=== PATIENT | female | born 1980 | race Two or more races ===

== ENCOUNTER 2021-05-07 14:20 | Outpatient (REF) | payer BC, SELFPAY ==
--- NOTE | ~2021-05-07 | XR_ITS ---
EXAMINATION: XR LUMBOSACRAL SPINE WITH OBLIQUES CLINICAL INFORMATION: Low back pain COMPARISON: None TECHNIQUE: 5 views of lumbar spine FINDINGS: The vertebral bodies and posterior elements are normal. The disc spaces are preserved and the vertebral alignment is normal. The paraspinal soft tissues are normal. XR/XR lumbar spine 4V min IMPRESSION: Unremarkable examination.
== END 2021-05-07 14:21 | disposition home or self-care (01) ==
LOC: HO.HMGCX 14:20
PROVIDERS: PCP Internal Medicine; Visit Provider Internal Medicine
DX: M54.5 Low back pain (principal)
CPT/HCPCS: 72110

== ENCOUNTER 2021-05-14 07:32 | Outpatient (REF) | payer BC, SELFPAY ==
[2021-05-14 11:40] LABS: Eosinophils Absolute Auto 0.2 X10*3/uL (0.0-0.4); Eosinophils Percent Auto 2.7 % (0-4); Imm Gran Abs Auto 0.03 X10*3/uL (0.00-0.03); Imm Gran Pct Auto 0.5 % (0.0-0.4); MANUAL DIFF FLAG SCAN; SCAN SMEAR FLAG 1
[2021-05-14 11:42] LABS: Basophils Percent Auto 0.7 % (0-2); Hematocrit 42.6 % (37-47); Hemoglobin 14.2 g/dl (12.0-16.0); Lymphocytes Absolute Auto 2.1 X10*3/uL (1.2-4.9); Lymphocytes Percent Auto 38.4 % (20-40); Mean Corpuscular HGB Conc 33.3 g/dl (31.0-35.0); Mean Corpuscular Volume 89.9 fL (80-98); Mean Platelet Volume 13.3 fL (9.4-12.3); Monocytes Absolute Auto 0.5 X10*3/uL (0.1-1.2); Monocytes Percent Auto 8.2 % (2-11); Neutrophils Absolute Auto 2.7 X10*3/uL (2.0-8.3); Neutrophils Percent Auto 49.5 % (45-73); Platelet Count 208 X10*3/uL (160-400); Red Blood Count 4.74 X10*6/uL (4.20-5.50); Red Cell Distribution Width 12.1 % (11.0-16.0); White Blood Count 5.5 X10*3/uL (4.8-10.8)
[2021-05-14 11:50] LABS: PLT ABN DIST 1
[2021-05-14 12:08] LABS: SLIDE REVIEW VERIFIED
[2021-05-14 12:10] LABS: Alanine Aminotransferase 19 U/L (0-31); Anion Gap 12 (12-20); Aspartate Amino Transferase 17 U/L (5-31); Blood Urea Nitrogen 16 mg/dL (9-16); Calcium 8.9 mg/dL (8.4-10.2); Carbon Dioxide 24 mmol/L (22-29); Chloride 107 mmol/L (96-108); Cholesterol 161 mg/dL; Estimated Glomerular Filt Rate > 60; Glucose Fasting 86 mg/dL (60-99); HDL Cholesterol 44 mg/dL; LDL Cholesterol Calculated 88 mg/dl; Potassium 4.4 mmol/L (3.3-5.1); Sodium 139 mmol/L (135-145); Triglycerides 145 mg/dL
[2021-05-14 12:32] LABS: TSH reflex Free T4 1.37 uIU/mL (0.32-4.0); Vitamin D 25-OH Total 27.7 ng/mL (>30)
== END 2021-05-14 07:33 | disposition home or self-care (01) ==
LOC: HO.HMGCLDS 07:32
PROVIDERS: PCP Internal Medicine; Visit Provider Internal Medicine
DX: Z00.01 Encounter for general adult medical examination with abnormal findings (principal); M25.541 Pain in joints of right hand; M25.542 Pain in joints of left hand; I10 Essential (primary) hypertension; Z83.3 Family history of diabetes mellitus; Z83.49 Family history of other endocrine, nutritional and metabolic diseases
CPT/HCPCS: 36415; 80048; 80061; 82306; 84443; 84450; 84460; 85025

== ENCOUNTER 2021-10-04 13:49 | Outpatient (REF) | payer BC, SELFPAY ==
--- NOTE | ~2021-10-04 | XR_ITS ---
EXAMINATION: XR SINUSES CLINICAL INFORMATION: Headache. COMPARISON: CT head 04/27/2013 TECHNIQUE: 4 views of the paranasal sinuses were obtained. FINDINGS: Paranasal sinuses appear clear without air-fluid levels. No fractures are identified. No radiodense foreign bodies. XR/XR sinus min 3V IMPRESSION: Unremarkable examination.
== END 2021-10-04 13:50 | disposition home or self-care (01) ==
LOC: HO.HMGCX 13:49
PROVIDERS: PCP Internal Medicine; Visit Provider Internal Medicine
DX: R51.9 Headache, unspecified (principal)
CPT/HCPCS: 70220

== ENCOUNTER → 2022-01-07 13:24 | Outpatient (BNVA) | payer BC, SELFPAY | PROVIDERS: Visit Provider Advanced Practice Midwife | DX: Z13.89 Encounter for screening for other disorder (principal) ==

== ENCOUNTER → 2022-03-14 10:20 | Outpatient (BNVA) | payer BC, SELFPAY | PROVIDERS: PCP Internal Medicine; Visit Provider Advanced Practice Midwife | DX: Z30.46 Encounter for surveillance of implantable subdermal contraceptive (principal) | CPT/HCPCS: 11983; J7307 ==

== ENCOUNTER 2022-06-12 08:18 | Outpatient (REF) | payer BC, SELFPAY ==
--- NOTE | ~2022-06-12 | FL_ITS ---
EXAMINATION: XR FLUOROSCOPY UPPER GI WITH AIR CLINICAL INFORMATION: Epigastric pain: COMPARISON: None TECHNIQUE: Routine upper GI contrast study was performed. FINDINGS: Following oral administration of thick barium and effervescent granules in upright view there is normal. Bolus from the oral cavity through the pharynx, esophagus into stomach without any evidence of obstruction stricture or narrowing. On placing patient supine and prone lying the course, caliber and peristalsis of the stomach, duodenal bulb and the sweep is normal. The mucosal pattern of the stomach and the duodenum is normal. There is a moderate gastroesophageal reflux without hiatal hernia. FLUOROSCOPY TIME: 2.6 minutes DOSE AREA PRODUCT: 24.013 uGy-m2 (microgray-meter squared) FL/FL upper GI w air IMPRESSION: Mild gastroesophageal reflux without hiatal hernia. Rest of the upper GI exam is unremarkable.
== END 2022-06-12 08:19 | disposition home or self-care (01) ==
LOC: HO.XRAY 08:18
PROVIDERS: Visit Provider Internal Medicine
DX: R10.13 Epigastric pain (principal)
CPT/HCPCS: 74246

== ENCOUNTER 2022-07-30 08:19 | Outpatient (REF) | payer BC, SELFPAY ==
--- NOTE | ~2022-07-30 | US_ITS ---
EXAMINATION: US ABDOMEN COMPLETE CLINICAL INFORMATION: Unspecified abdominal pain. COMPARISON: None TECHNIQUE: Real-time imaging of the abdominal viscera. FINDINGS: PANCREAS: Normal. ABDOMINAL AORTA: The proximal, mid, and distal segments are normal in caliber. INFERIOR VENA CAVA: Visualized portions are normal. LIVER: Normal. The liver is normal in size. The liver contour is normal. Parenchymal echogenicity is normal. No focal hepatic lesion. There is no intrahepatic biliary duct dilatation seen. GALLBLADDER: 2 mm gallbladder wall polyp. No gallstones. No gallbladder wall thickening or pericholecystic fluid. No reported sonographic Lawler's sign. COMMON BILE DUCT: Normal in caliber measuring 0.3 cm in diameter. RIGHT KIDNEY: Normal. No hydronephrosis. No renal calculi or focal parenchymal lesions. The kidney measures 10.0 cm in maximum dimension. LEFT KIDNEY: Normal. No hydronephrosis. No renal calculi or focal parenchymal lesions. The kidney measures 10.9 cm in maximum dimension. SPLEEN: Normal. The spleen measures 11.4 cm in maximum dimension. FREE FLUID: None. US/US abdomen complete IMPRESSION: No acute findings to explain abdominal pain. 2 mm gallbladder wall polyp. There are differing management algorithms advocated for in the radiology literature for small gallbladder wall polyps of this size. Some suggest annual ultrasound follow-up while others suggest no follow-up is needed.
== END 2022-07-30 08:20 | disposition home or self-care (01) ==
LOC: HO.HMGCX 08:19
PROVIDERS: PCP Internal Medicine; Visit Provider Internal Medicine
DX: R10.9 Unspecified abdominal pain (principal); R14.0 Abdominal distension (gaseous)
CPT/HCPCS: 76700

== ENCOUNTER 2022-07-30 11:09 | Outpatient (REF) | payer BC, SELFPAY ==
[2022-07-30 15:21] LABS: CT PCR NOT DETECTED (Not Detect.)
[2022-07-30 15:22] LABS: NG PCR NOT DETECTED (Not Detect.)
[2022-07-31 09:35] LABS: BV Int Neg Control Negative (Negative); BV Int Pos Control Positive (Positive)
[2022-08-05 20:52] LABS: HPV mRNA E6/E7 rflx Not Detected (Not Detected)
== END 2022-07-30 11:10 | disposition home or self-care (01) ==
LOC: HO.LNP 11:09
PROVIDERS: Visit Provider Advanced Practice Midwife
DX: Z01.419 Encounter for gynecological examination (general) (routine) without abnormal findings (principal); R10.9 Unspecified abdominal pain; R14.0 Abdominal distension (gaseous); Z12.39 Encounter for other screening for malignant neoplasm of breast; Z11.3 Encounter for screening for infections with a predominantly sexual mode of transmission; Z97.5 Presence of (intrauterine) contraceptive device
CPT/HCPCS: 87480; 87491; 87510; 87591; 87624; 87660; 88142

== ENCOUNTER 2022-08-29 07:44 | Outpatient (REF) | payer BC, SELFPAY ==
--- NOTE | ~2022-08-29 | MM_ITS ---
EXAMINATION: MM SCREENING DIGITAL BREAST TOMOSYNTHESIS, BILATERAL CLINICAL INFORMATION: Screening. Asymptomatic. Age 42. No prior breast imaging. The lifetime risk of breast cancer based on the Tyrer-Cuzick Model is 14%. COMPARISON: None (current study represents initial baseline exam). TECHNIQUE: Digital breast tomosynthesis is performed in both the craniocaudal and mediolateral oblique views along with computer-aided detection (CAD). Synthesized 2D images are generated from the tomosynthesis. FINDINGS: The breasts are heterogeneously dense, which may obscure small masses (ACR BI-RADS breast composition Category c). There are no significant masses, abnormal calcifications, or other abnormalities. No architectural abnormality. The axilla are unremarkable. Incidental low left axillary tail node. The skin contours are smooth. MM/MM tomosynthesis screening BI IMPRESSION: No mammographic evidence of malignancy. ASSESSMENT: BI-RADS 1: Negative RECOMMENDATION: Routine annual mammography screening. This patient's information was entered into a reminder system with a target due date for their next mammogram.
[2022-08-29 12:15] LABS: Syphilis Screen Nonreactive (Nonreactive)
[2022-08-29 12:54] LABS: Alanine Aminotransferase 14 U/L (0-31); Anion Gap 11 (12-20); Aspartate Amino Transferase 13 U/L (5-31); Blood Urea Nitrogen 18 mg/dL (9-16); Calcium 9.1 mg/dL (8.4-10.2); Carbon Dioxide 25 mmol/L (22-29); Chloride 107 mmol/L (96-108); Cholesterol 165 mg/dL; Estimated Glomerular Filt Rate > 60; Glucose Fasting 111 mg/dL (60-99); HDL Cholesterol 43 mg/dL; LDL Cholesterol Calculated 106 mg/dl; Potassium 4.3 mmol/L (3.3-5.1); Triglycerides 81 mg/dL; Vitamin D 25-OH Total 22.7 ng/mL (>30)
[2022-08-29 12:57] LABS: HBsAGNum1 0.27 S/CO (0.00-0.99); HIV AB/AG Nonreactive (Nonreactive); HIV Num 1 0.07 S/CO (0.00-0.99); Hepatitis B Surface Antigen Negative (Negative); Sodium 139 mmol/L (135-145); ~HepC Num1 0.14 S/CO (0.00-0.79); ~Hepatitis C Antibody Nonreactive (Nonreactive)
== END 2022-08-29 07:45 | disposition home or self-care (01) ==
LOC: HO.MAMMO 07:44
PROVIDERS: PCP Internal Medicine; Visit Provider Advanced Practice Midwife
DX: Z00.01 Encounter for general adult medical examination with abnormal findings (principal); Z11.4 Encounter for screening for human immunodeficiency virus [HIV]; Z12.31 Encounter for screening mammogram for malignant neoplasm of breast; Z11.3 Encounter for screening for infections with a predominantly sexual mode of transmission; K21.9 Gastro-esophageal reflux disease without esophagitis; M54.50 Low back pain, unspecified; R14.0 Abdominal distension (gaseous); Z97.5 Presence of (intrauterine) contraceptive device
CPT/HCPCS: 36415; 77063; 77067; 80048; 80061; 82306; 84450; 84460; 86780; 86803; 87340; 87389

== ENCOUNTER 2022-09-23 11:19 | Outpatient (REF) | payer BC, SELFPAY ==
[2022-09-24 11:20] LABS: H Pylori Breath Test Negative (Negative)
== END 2022-09-23 11:20 | disposition home or self-care (01) ==
LOC: CF 11:19
PROVIDERS: PCP Internal Medicine; Visit Provider Nurse Practitioner Family
DX: Z11.2 Encounter for screening for other bacterial diseases (principal)
CPT/HCPCS: 36415; 83013

== ENCOUNTER 2022-10-06 13:24 | Outpatient (REF) | payer BC, SELFPAY ==
[2022-10-06 15:24] LABS: Lipase 33 U/L (8-78)
[2022-10-06 15:58] LABS: Folate 10.1 ng/mL (> or = 4.0); TSH reflex Free T4 1.48 uIU/mL (0.32-4.0); Vitamin B12 261 pg/mL (200-900)
[2022-10-08 19:38] LABS: Transglutaminase Ab IgG <1.0 U/mL; Transglutaminase IgA <1.0 U/mL
== END 2022-10-06 13:25 | disposition home or self-care (01) ==
LOC: HO.LAB 13:24
PROVIDERS: PCP Internal Medicine; Referring Provider Internal Medicine; Visit Provider Nurse Practitioner Family
DX: R10.9 Unspecified abdominal pain (principal); R19.7 Diarrhea, unspecified; K21.9 Gastro-esophageal reflux disease without esophagitis; R14.0 Abdominal distension (gaseous); K59.01 Slow transit constipation
CPT/HCPCS: 36415; 82607; 82746; 83690; 84443; 86364

== ENCOUNTER 2022-10-15 11:18 | Outpatient (REF) | payer BC, SELFPAY ==
[2022-10-25 17:28] LABS: Pancreatic Elastase-1 >500 mcg/g
== END 2022-10-15 11:19 | disposition home or self-care (01) ==
LOC: HO.LNP 11:18
PROVIDERS: Visit Provider Nurse Practitioner Family
DX: R10.9 Unspecified abdominal pain (principal)
CPT/HCPCS: 82656

== ENCOUNTER 2022-11-06 11:48 | Day surgery (SDC) | payer BC, SELFPAY ==
[2022-11-06 12:09] VITALS: BMI 25.7
[2022-11-06 12:24] VITALS: BP 114/68; PULSE 66; RESP 15; TEMP 36.7; O2SAT 99
[2022-11-06 12:28] LABS: UPreg QC Valid YES; Urine Pregnancy NEGATIVE (NEGATIVE)
--- NOTE | 2022-11-06 12:30 | P.CONAN_ITS ---
HPI - Anesthesia Eval Consult details Narrative: Egd [facility] Active Problems Active Problems: All Active Problems (Updated 09/26/22 @ 17:24 by Mary Kate Delgado [facility]) Cervical cancer screening (Acute) Lumbago syndrome (Acute) GERD (gastroesophageal reflux disease) (Acute) Postprandial abdominal bloating (Acute) Nexplanon in place (Acute) Family history of thyroid disease (Acute) Family history of diabetes mellitus in first degree relative (Acute) Past Medical History Medical History Bilateral finger arthralgia Family history of diabetes mellitus in first degree relative Family history of thyroid disease GERD (gastroesophageal reflux disease) Lumbago syndrome Postprandial abdominal bloating Family History Family History Father Hepatitis C Mother Asthma HTN (hypertension) Rosacea Maternal Grandmother Breast cancer Maternal Grandfather History of heart attack Paternal Grandmother No problems noted. Paternal Grandfather No problems noted. Brother No problems noted. Brother No problems noted. Sister No problems noted. Daughter No problems noted. 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 Current occupational exposures/hazards: No Cognitive needs: No Hearing needs: No Vision needs: Yes Meds Allergies Allergy/AdvReac Type Severity Reaction Status Date / Time Seasonal Allergies Allergy Mild Runny Nose Verified 11/06/22 12:09 Active Medications: Current Medications Lactated Ringer's (Lr) 1,000 mls @ 50 mls/hr IVCONT .Q20H ALISON Home Medications Medication Instructions Recorded Confirmed Last Taken Type etonogestrel 68 mg subdermal subdermal 05/07/21 08/08/22 Unknown History implant (Nexplanon) fexofenadine 180 mg tablet 180 mg PO DAILY 05/14/22 10/31/22 Unknown History (Beatriz Allergy) Exam Exam Date and Time: November 06, 2022 1230 Height,Weight and Vital Signs: Height 5 ft 6 in Weight 72.121 kg Last Vital Signs Temp 98.1 F 11/06/22 12:24 Pulse 66 11/06/22 12:24 Resp 15 11/06/22 12:24 BP 114/68 11/06/22 12:24 Pulse Ox 99 11/06/22 12:24 O2 Del Method 11/06/22 12:24 Pertinent Lab Results Pertinent Lab Results: Laboratory Tests 11/06/22 12:10 Urine Test NEGATIVE Airway Mallampati Class: II TM Dist: >3cm Neck ROM: Full Loose/Missing/Broken Teeth: No Heart: rrr Lungs: cta Assessment and Plan Assessment Anesthesia Assessment: Anesthesia Plan Discussed and Chart Reviewed Final Anesthetic Review Family History of Problems with Anesthesia: No History of Problems with Anesthesia: No NPO: Yes ASA Class: II Final Preanesthetic Review: No Changes in Pt Med Stat, Meds/Allgs Chart Reviewed, Consent Obtained/Reviewed and Anes Risks/Benef Reviewed Patient Risk: Low Procedure Risk: Low Anesthetic Plan Anesthetic Plan: MAC: Disposition: Standard PACU
[2022-11-06] MEDS: Lactated Ringers 1,000 ML 50 ML IVCONT (12:38)
--- NOTE | 2022-11-06 13:25 | MHC.SHP ---
Pre-Procedural Eval Section A Date of Service: 11/06/22 Section B Chief Complaint: reflux disease Relevant Family History (Specify if Yes): No Relevant Social History: Alcohol Use Present Medications: see Short Stay Collaborative assessment Medical History: Significant History (Bilateral finger arthralgia Family history of diabetes mellitus in first degree relative Family history of thyroid disease GERD (gastroesophageal reflux disease) Lumbago syndrome Postprandial abdominal bloating) History of Previous Operations: Relevant previous surgery/procedure and date(s) (c section) Allergies: Allergies Allergy/AdvReac Type Severity Reaction Status Date / Time Seasonal Allergies Allergy Mild Runny Nose Verified 11/06/22 12:09 Review of Systems Sugical H&P ROS: Negative: Constitution, Cardiovascular, Respiratory, Neurological, Psychiatric, Hem-Onc, Allergic/Immunologic, Gastrointestinal, Genitourinary, Musculoskeletal, Integumentary, Endocrine and Eyes/Ears/Nose/Throat Exam Surgical H&P Exam: Normal: HEENT, Normal: Heart, Normal: Lungs, Normal: Extremities, Normal: Abdomen, Normal: Skin and Normal: Neurological Plan Diagnosis/Plan: Unchanged I have reviewed the history and physical and performed a pertinent physical examination on my patient. No changes have occurred unless specified. Time Spent With Patient Time: Total time managing care of this patient today ____ minutes.
--- NOTE | 2022-11-06 13:54 | W.PM.OPN ---
Operative Note Operative Note Date of Service: 11/06/22 Narrative: Procedure Description: EGD Indication: GERD Anesthesia: MAC FLEXIBLE TRANSORAL UPPER GASTROINTESTINAL ENDOSCOPY UPPER ENDOSCOPY Consent: Indications for the procedure and potential complications of bleeding, perforation, reaction to medications and missed diagnosis were discussed with the patient and informed consent was obtained. Instrument: Olympus GIF H 190 J mid size upper endoscope Monitoring: Vital signs and clinical assessment, continuous EKG monitoring, Pulse oximetry, Carbon Dioxide monitoring and blood pressure monitoring were done throughout the procedure. Procedure: The patient was placed in the left lateral decubitis position and pre-procedure medications were administered and a bite block was placed. The endoscope was inserted into the mouth and advanced under direct vision to the third part of duodenum. A careful inspection was made as the upper endoscope was withdrawn including a retroflexed examination of the proximal stomach; Findings and interventions are described below. Findings: Larynx:normal Esophagus: GE junction at 38 cm, diaphragm hiatus at 38 cm, no varices or esophagitis. Non obstructive schatzki ring noted, bx taken from GEJ, proximal and distal esophagus. Stomach: Patchy gastric erythema. Biopsies were obtained. Grade 2 flap valve on retroflexed examination of the cardia. There seemed to be reduced gastric motility. Duodenum: Normal bulb and descending duodenum, bx taken Intervention: Biopsies as noted above Impression/Findings: possible gastroparesis schatzki ring PLAN: change PPI, can use esomeprazole 20 mg if covered reflux precatuions, lifestyle advice
[2022-11-06 14:00] VITALS: BP 108/64; PULSE 78; RESP 17; TEMP 36.8; O2SAT 100
[2022-11-06 14:15] VITALS: BP 116/71; PULSE 62; RESP 17; TEMP 36.8; O2SAT 100
== END 2022-11-06 14:47 | disposition home or self-care (01) ==
PROVIDERS: Anesthesiology; PCP Internal Medicine; Visit Provider Internal Medicine Gastroenterology
PROC: 0DJ08ZZ Inspection of Upper Intestinal Tract, Via Natural or Artificial Opening Endoscopic (ICD-10-PCS; CPT 43235; principal; 2022-11-06 14:00)
DX: K21.9 Gastro-esophageal reflux disease without esophagitis (principal); K22.2 Esophageal obstruction; K44.9 Diaphragmatic hernia without obstruction or gangrene; K59.01 Slow transit constipation; R14.0 Abdominal distension (gaseous); F10.90 Alcohol use, unspecified, uncomplicated; Z79.899 Other long term (current) drug therapy
CPT/HCPCS: 43239; 81025; 88305; 88342

== ENCOUNTER → 2022-11-21 14:00 | Outpatient (BNVA) | payer BC, SELFPAY | PROVIDERS: PCP Internal Medicine; Visit Provider Nurse Practitioner Family | DX: Z13.89 Encounter for screening for other disorder (principal) ==

== ENCOUNTER → 2023-02-13 13:26 | Outpatient (BNVA) | payer BC, SELFPAY | PROVIDERS: PCP Internal Medicine; Visit Provider Nurse Practitioner Family ==

== ENCOUNTER 2023-07-02 10:25 | Outpatient (AMB) | payer BC, SELFPAY ==
[2023-07-02 10:34] VITALS: BP 110/70; PULSE 71; TEMP 37.1; O2SAT 92; BMI 26.5
--- NOTE | 2023-07-02 10:34 | MHC.PC.OV ---
Vital Signs 07/02/23 10:34 Height 5 ft 6 in Weight 164 lb BMI 26.5 BP 110/70 Blood Pressure Location Rt brachial Position Sitting Pulse 71 Pulse Source Pulse Oximeter Temp 98.7 F Temp Source Oral Pulse Oximetry (%) 92 Oxygen Delivery Method Room Air Intake Visit Reasons: Sinus congestion, headaches Intake Note: patient is here today for sinus congestion, headaches x2days Allergies Seasonal Allergies Allergy (Mild, Verified 07/02/23 11:03) Runny Nose Medication List - Last Reconciled 07/02/23 by Emmie Dillon MD esomeprazole magnesium 20 mg PO DAILY etonogestrel (Nexplanon) subdermal famotidine (Pepcid) 20 mg PO BEDTIME fexofenadine (Beatriz Allergy) 180 mg PO DAILY polyethylene glycol 3350 (Miralax) 17 grams PO DAILY sennosides (Natural Senna Laxative) 8.6 mg PO BEDTIME simethicone (Gas Relief (simethicone)) 125 mg PO TID-QID PRN simethicone (Gas Relief (simethicone)) 80 mg PO TID-QID PRN Tobacco use date assessed: 07/02/23 Dental Screening Dental Screen Date: 07/02/23 Did you have a dental visit in the last 12 months?: Yes Did you have a dental problem in the last 6 months where you did not have access to dental care?: No Was dental information given to patient?: Patient has dentist HPI HPI Comments History of Present Illness Details 43-year-old lady here today presenting with 2 day history of nasal congestion accompanied by frontal headaches, with no epistaxis, no fever, no cough or shortness of breath accompanying above symptoms. Has had similar symptoms in December 2022, seen by her ENT, diagnosed with acute sinusitis and placed on Z-Lucio and methylprednisolone Dosepak, which has helped. She is also currently getting allergy shots from Dr. Mobley for her environmental and seasonal allergies, for the last 2 years now, does not notice any improvement . [facility] Medical History (Updated 07/02/23 @ 11:16 by Emmie Dillon MD) Environmental and seasonal allergies GERD (gastroesophageal reflux disease) Postprandial abdominal bloating Bilateral finger arthralgia Family history of thyroid disease Family history of diabetes mellitus in first degree relative Lumbago syndrome Surgical History History of esophagogastroduodenoscopy (EGD) History of dermoid cyst excision History of section Family History Father Hepatitis C Mother Asthma HTN (hypertension) Rosacea Maternal Grandmother Breast cancer Maternal Grandfather History of heart attack Paternal Grandmother No problems noted. Paternal Grandfather No problems noted. Brother No problems noted. Brother No problems noted. Sister No problems noted. Daughter No problems noted. 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 1. Little interest or pleasure in doing things: several days 2. Feeling down, depressed, or hopeless: not at all 3. Trouble falling or staying asleep, or sleeping too much: several days 4. Feeling tired or having little energy: not at all 5. Poor appetite or overeating: not at all 6. Feeling bad about yourself - or that you are a failure or have let yourself or your family down: not at all 7. Trouble concentrating on things, such as reading the newspaper or watching television: not at all 8. Moving or speaking so slowly that other people could have noticed. Or the opposite - being so fidgety or restless that you have been moving around a lot more than usual: not at all 9. Thoughts that you would be better off or of hurting yourself in some way: not at all Total score: 2 Depression Screening Interpretation: Negative Depression Screening Done: Yes [id number] - PHQ-9 Billing: Yes Source: Developed by Drs. Lopez Amaral, Shea Bull, Abelino Oneal and colleagues, with an educational tyrone from [employer]. Thrive Questionnaire Date Thrive assessed: 07/02/23 I am a: Patient What is your living situation today?: I have a steady place to live Within the past 12 months, did the food you bought not last and you didn't have the money to get more?: Never true Within the past 12 months, did you worry whether your food would run out before you got money to buy more?: Never true Do you have trouble paying for medicines?: No Do you have trouble getting transportation to medical appointments?: No Do you have trouble paying your heating and electricity bill?: No Do you have trouble taking care of your child, family member or friend?: No Do you have trouble with day-to-day activities such as bathing, preparing meals, shopping, managing finances, etc.?: No Are you currently unemployed and looking for a job?: No Are you interested in more education?: No AUDIT C Alcohol Use Questionnaire (AUDIT-C) 1. How often do you have a drink containing alcohol?: Monthly or less 2. How many drinks containing alcohol do you have on a typical day when you are drinking?: 1 or 2 Total Score: 1 IFTIKHAR-7 AMB Questionnaire IFTIKHAR-7 Date IFTIKHAR - 7 assessed: 07/02/23 Feeling nervous, anxious, or on edge: 1 = Several days Not being able to stop or control worryin = Not at all Worrying too much about different things: 1 = Several days Trouble relaxin = Several days Being so restless that it is hard to sit still: 0 = Not at all Becoming easily annoyed or irritable: 1 = Several days Feeling afraid as if something awful might happen: 1 = Several days Total IFTIKHAR-7 score (0-4 normal; 5-9 mild; 10-14 moderate; 15-21 severe): 5 Source: Developed by Drs. Lopez Amaral, Shea Bull, Abelino Oneal and colleagues, with an educational tyrone from [employer]. IFTIKHAR-7 Assessment Billing IFTIKHAR-7 Assessment Tool: IFTIKHAR-7 Assessment 77142 Review of Systems Const Denies body aches and Denies fever(s) Eyes Denies change in vision ENT Denies sore throat Card Denies chest pain, Denies lightheadedness and Denies dyspnea Resp Denies chest congestion, Denies cough and Denies dyspnea Physical exam (Primary Care) Vital Signs: Last Vital Signs Temp 98.7 F 07/02/23 10:34 Pulse 71 07/02/23 10:34 BP 110/70 07/02/23 10:34 Pulse Ox 92 07/02/23 10:34 Oxygen Delivery Method Room Air 07/02/23 10:34 BMI result Body Mass Index 26.5 Tobacco/Smoking Status: Tobacco use Status Tobacco use date assessed 07/02/23 07/02/23 10:36 Patient Tobacco Use Status Former Tobacco user 07/02/23 10:36 e-Cigarette/Vaping Use Never Used 07/02/23 10:36 PHQ-9: PHQ-9 Score PHQ-9: Total score 2 07/02/23 10:59 Depression Screening Interpretation: Negative Thrive Assessment: Date of Thrive Assessment Date Thrive assessed 07/02/23 07/02/23 10:45 Const General: comfortable and no acute distress Orientation/consciousness: patient oriented x3 HENMT Head: Yes normocephalic Ears: external ears normal, TM's normal bilaterally and EAC's normal General nose exam: Normal external nose present, No nasal discharge present and Abnormal mucous membranes and turbinates present erythematous bilateral Face and sinus: Yes sinus tenderness (Maxillary area left more than the right) Eyes General: appearance normal, both eyes and all related structures Neck Neck: Yes full ROM, Yes no lymphadenopathy and Yes supple Resp Auscultation: clear to auscultation bilaterally Cardio Other: S1-S2 present regular rate and rhythm Neuro General: patient oriented x3 Assessment and Plan Assessment & Plan (1) Acute sinusitis: Code(s): J01.90 - Acute sinusitis, unspecified Qualifiers: Sinusitis location: maxillary Recurrence: non-recurrent Qualified Code(s): J01.00 - Acute maxillary sinusitis, unspecified Plan: Prescription sent for azithromycin Dosepak, to take as directed. If no improvement of symptoms, advised to follow-up with her ENT, Dr. Gauthier for further evaluation. Medications: New azithromycin For 250 mg dose pack: take 500 mg today (day 1), then 250 mg for 4 days (days 2-5) PO 6 tabs 0RF Coding Level of Care Code Est Pt Level 3 (91831) Diagnoses Acute non-recurrent maxillary sinusitis J01.00 Sinusitis location: maxillary Recurrence: non-recurrent Additional Codes IFTIKHAR-7 Assessment Billing - IFTIKHAR-7 Assessment Tool: IFTIKHAR-7 Assessment 97019 ([id number])
== END 2023-07-02 13:41 | disposition home or self-care (01) ==
PROVIDERS: PCP Internal Medicine; Visit Provider Internal Medicine
DX: J01.00 Acute maxillary sinusitis, unspecified (principal)
CPT/HCPCS: 99213

== ENCOUNTER 2023-08-07 08:01 | Outpatient (AMB) | payer BC, SELFPAY ==
--- NOTE | 2023-08-07 08:03 | MHC.OFFWIV ---
Intake Vital Signs 08/07/23 08:11 Height 5 ft 6 in Weight 164 lb BMI 26.5 BP 130/72 Blood Pressure Location Rt brachial Position Sitting Pulse 81 Pulse Source Pulse Oximeter Temp 98.0 F Temp Source Temporal Artery Scan Pulse Oximetry (%) 97 Intake Visit Reasons: EST/ sore throat and and headache (lobby) Intake Note: pt is here for c/o sore throat and headache, fever Patient Tobacco Use Status: Former Tobacco user Quit Date: age 24 Allergies Seasonal Allergies Allergy (Mild, Verified 08/07/23 08:11) Runny Nose Do you need a note to return to daycare/school/sports/work: Yes HPI HPI Comments History of Present Illness Details The patient presents to urgent care for evaluation of sore throat and fever. 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 She complains of a headache as well. [facility] Medical History (Updated 07/02/23 @ 11:16 by Emmie Dillon MD) Environmental and seasonal allergies GERD (gastroesophageal reflux disease) Postprandial abdominal bloating Bilateral finger arthralgia Family history of thyroid disease Family history of diabetes mellitus in first degree relative Lumbago syndrome Surgical History History of esophagogastroduodenoscopy (EGD) History of dermoid cyst excision History of section Family History Father Hepatitis C Mother Asthma HTN (hypertension) Rosacea Maternal Grandmother Breast cancer Maternal Grandfather History of heart attack Paternal Grandmother No problems noted. Paternal Grandfather No problems noted. Brother No problems noted. Brother No problems noted. Sister No problems noted. Daughter No problems noted. 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 Current occupational exposures/hazards: No Cognitive needs: No Hearing needs: No Vision needs: Yes Female Reproductive History Menstrual Age of Menarche: 15 Review of Systems ENT Denies dizziness and Reports sore throat Card Denies rapid heart rate, Denies dyspnea and Denies dyspnea on exertion Resp Denies dyspnea and Denies dyspnea on exertion Musc Denies arthralgias and Denies muscle cramps Neuro Denies dizziness, Denies focal weakness and Denies Other visual disturbances Physical Exam Vital Signs: Last Vital Signs Temp 98.0 F 08/07/23 08:11 Pulse 81 08/07/23 08:11 BP 130/72 08/07/23 08:11 Pulse Ox 97 08/07/23 08:11 BMI result Body Mass Index 26.5 Const General: healthy appearing and no acute distress HEENT Mouth: Normal oral and palatal mucosa present Resp Effort & Inspection: normal respiratory effort and able to speak in complete sentences Auscultation: clear to auscultation bilaterally Cardio Rate: regular rate Rhythm: regular rhythm Results AMB Rapid Strep AMB Rapid Strep Negative Last Edit by Sherman Duron CMA on 08/07/23 08:20 Assessment & Plan Assessment & Plan (1) Sore throat: Code(s): J02.9 - Acute pharyngitis, unspecified Plan Fever and sore throat. Rapid strep test negative symptoms likely viral. The patient advised for symptomatic relief. Orders: Orders AMB Rapid Strep Screen Today Z13.9 - Encounter for screening, unspecified Coding Level of Care Code Est Pt Level 3 (50814) Diagnoses Sore throat J02.9
[2023-08-07 08:11] VITALS: BP 130/72; PULSE 81; TEMP 36.7; O2SAT 97; BMI 26.5
== END 2023-08-07 08:57 | disposition home or self-care (01) ==
PROVIDERS: PCP Internal Medicine; Visit Provider Emergency Medicine
DX: J02.9 Acute pharyngitis, unspecified (principal)
CPT/HCPCS: 87880; 99213

== ENCOUNTER 2023-08-10 08:01 | Outpatient (AMB) | payer BC, SELFPAY ==
[2023-08-10 08:03] VITALS: BP 118/72; PULSE 94; TEMP 37.1; O2SAT 99; BMI 26.5
--- NOTE | 2023-08-10 08:03 | MHC.OFFWIV ---
Intake Vital Signs 08/10/23 08:03 Height 5 ft 6 in Weight 164 lb BMI 26.5 BP 118/72 Blood Pressure Location Rt brachial Position Sitting Pulse 94 Pulse Source Pulse Oximeter Temp 98.8 F Temp Source Oral Pulse Oximetry (%) 99 Oxygen Delivery Method Room Air Intake Visit Reasons: EST/sinus infection(lobby masked) Intake Note: pt is here for c/o sinus infection possibly vision exam 20/10 both eyes, left eye 20/10, right eye 20/10..corrected Patient Tobacco Use Status: Former Tobacco user Quit Date: age 24 Allergies Seasonal Allergies Allergy (Mild, Verified 08/10/23 08:18) Runny Nose Medication List - Last Reconciled 08/10/23 by Saravanan Pastor MD esomeprazole magnesium 20 mg PO DAILY etonogestrel (Nexplanon) subdermal famotidine (Pepcid) 20 mg PO BEDTIME fexofenadine (Beatriz Allergy) 180 mg PO DAILY polyethylene glycol 3350 (Miralax) 17 grams PO DAILY sennosides (Natural Senna Laxative) 8.6 mg PO BEDTIME simethicone (Gas Relief (simethicone)) 125 mg PO TID-QID PRN Do you need a note to return to daycare/school/sports/work: Yes HPI EST/sinus infection(lobby masked) HPI Details Patient presents for a sick visit. Reporting symptoms of sinus congestion, sore throat and difficulty swallowing. Low-grade fever. No family member is sick. No recent travel. Patient reports symptoms of malaise and fatigue. Right eye started getting inflamed 2 days ago. Frequent tearing and mucoid discharge. [facility], [facility] Medical History (Updated 07/02/23 @ 11:16 by Emmie Dillon MD) Environmental and seasonal allergies GERD (gastroesophageal reflux disease) Postprandial abdominal bloating Bilateral finger arthralgia Family history of thyroid disease Family history of diabetes mellitus in first degree relative Lumbago syndrome Surgical History History of esophagogastroduodenoscopy (EGD) History of dermoid cyst excision History of section Family History Father Hepatitis C Mother Asthma HTN (hypertension) Rosacea Maternal Grandmother Breast cancer Maternal Grandfather History of heart attack Paternal Grandmother No problems noted. Paternal Grandfather No problems noted. Brother No problems noted. Brother No problems noted. Sister No problems noted. Daughter No problems noted. 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 Current occupational exposures/hazards: No Cognitive needs: No Hearing needs: No Vision needs: Yes Female Reproductive History Menstrual Age of Menarche: 15 Physical Exam Vital Signs: Last Vital Signs Temp 98.8 F 08/10/23 08:03 Pulse 94 08/10/23 08:03 BP 118/72 08/10/23 08:03 Pulse Ox 99 08/10/23 08:03 Oxygen Delivery Method Room Air 08/10/23 08:03 BMI result Body Mass Index 26.5 Const General: cooperative and healthy appearing Nutritional Appearance: well nourished Orientation/consciousness: patient oriented x3 Limitations: no limitations HEENT Head: Yes normal to inspection Eyes Other: Right eye: Bulbar conjunctiva is congested. Corneas clear. Anterior chamber is clear. Neck Neck: Yes normal visual inspection Chest Chest palpation & inspection: normal palpation of entire chest wall Resp Effort & Inspection: normal respiratory effort Neuro General: patient oriented x3 Assessment & Plan Assessment & Plan (1) Upper respiratory tract infection: Code(s): J06.9 - Acute upper respiratory infection, unspecified Plan: Antibiotics ordered. Increase fluid intake. Tylenol for aches and pains. If symptoms worsen, follow-up here for a recheck. Erythromycin ophthalmic ointment called in. Coding Level of Care Code Est Pt Level 3 (95348) Diagnoses Upper respiratory tract infection J06.9
== END 2023-08-10 09:04 | disposition home or self-care (01) ==
PROVIDERS: PCP Internal Medicine; Visit Provider Internal Medicine
DX: J06.9 Acute upper respiratory infection, unspecified (principal)
CPT/HCPCS: 99213

== ENCOUNTER 2023-08-14 14:11 | Outpatient (AMB) | payer BC, SELFPAY ==
[2023-08-14 14:15] VITALS: BP 114/72; PULSE 91; BMI 26.8
--- NOTE | 2023-08-14 14:15 | A.OFFVIS_ITS ---
Intake Vital Signs 08/14/23 14:15 Height 5 ft 6 in Weight 165 lb 12.602 oz BMI 26.8 BP 114/72 Blood Pressure Location Rt brachial Position Sitting Pulse 91 Pulse Source Pulse Oximeter Intake Visit Reasons: 6 mnth follow up Intake Note: Pt presents to the office today for a 6 month follow up. Pt states she is feeling well and states that she still doesnt have a bowel movement everyday but she believes the medication has helped her have more normal bowel movements. Pt denies any other GI concerns at this time. Allergies Seasonal Allergies Allergy (Mild, Verified 08/14/23 14:16) Runny Nose HPI 6 mnth follow up HPI Details LAST VISIT GERD (gastroesophageal reflux disease) Continue taking Nexium and famotidine. Discussed with patient avoiding dietary triggers and late night snacking. Staying upright for minimal 3 hours after meals discussed with patient. He Postprandial abdominal bloating Continue following low FODMAP diet. Avoid dietary triggers. Patient also does no t move her bowels every day only every 2-3 days. I will start her on Senokot. Patient was also encouraged to follow list given to her last visit Constipation Will start patient on Senokot. Patient was instructed to take it every day. Discussed with her the importance of moving her bowels daily. Patient was encouraged to increase fluid intake and activity to promote better bowel motility. I will see patient in 6 months, sooner on as needed basis. Patient is agreeable to this plan and verbalizes understanding of instructions. She was given the opportunity to ask questions and all questions answered. ? Thank you for allowing me to participate in her care Plan Medications New sennosides (Natural Senna Laxative) 8.6 mg PO BEDTIME 90 tabs 3RF constipation K59.00 - Constipation, unspecified TODAY'S VISIT: Patient is here today for follow-up. Patient reports that she has been moving her bowels better since she started taking senna. Patient is taking 1 Senokot every evening. Patient feels like she does not empty her bowels completely and does not go every day. Patient reports that her abdominal bloating has got much better now that she is moving her bowels. Patient reports that her symptoms of acid reflux have been better. She is not taking any famotidine at bedtime. Patient is taking as omeprazole in the morning, however when she forgets to take it she reports to have mild symptoms. Patient denies any dyspepsia, dysphagia or odynophagia. Denies any melena, hematochezia, unintentional weight loss or ribbon like stools. Patient denies any nausea or vomiting. Denies any abdominal pain or discomfort. Patient reports to have a good appetite. Trying to avoid dietary triggers and trying to avoid eating late at night time [facility] Medical History (Updated 07/02/23 @ 11:16 by Emmie Dillon MD) Environmental and seasonal allergies GERD (gastroesophageal reflux disease) Postprandial abdominal bloating Bilateral finger arthralgia Family history of thyroid disease Family history of diabetes mellitus in first degree relative Lumbago syndrome Surgical History History of esophagogastroduodenoscopy (EGD) History of dermoid cyst excision History of section Family History Father Hepatitis C Mother Asthma HTN (hypertension) Rosacea Maternal Grandmother Breast cancer Maternal Grandfather History of heart attack Paternal Grandmother No problems noted. Paternal Grandfather No problems noted. Brother No problems noted. Brother No problems noted. Sister No problems noted. Daughter No problems noted. 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 Current occupational exposures/hazards: No Cognitive needs: No Hearing needs: No Vision needs: Yes Female Reproductive History Menstrual Age of Menarche: 15 Review of Systems Const Denies weight gain and Denies weight loss ENT Reports no additional complaints, Denies dysphagia and Denies odynophagia Card Reports no additional complaints Resp Reports no additional complaints GI Denies abdominal pain, Denies belching, Denies melena, Denies bloating, Reports constipation (Occasional), Denies dysphagia, Denies excessive flatus, Denies dyspepsia, Denies heartburn, Denies diarrhea, Denies loose stools, Denies nausea, Denies odynophagia and Denies vomiting Reports no additional complaints Musc Reports no additional complaints Neuro Reports no additional complaints Psych Reports no additional complaints Endo Reports no additional complaints Physical Exam Vital Signs: BMI result Body Mass Index 26.8 Const General: healthy appearing, no acute distress and well developed Nutritional Appearance: well nourished Orientation/consciousness: patient oriented x3 HEENT Head: Yes normal to inspection, Yes normocephalic and Yes atraumatic Face and sinus: Yes normal facial exam Mouth: Normal oral and palatal mucosa present Throat: Yes posterior oropharynx normal, Yes tonsils normal and Yes uvula midline Eyes General: appearance normal, both eyes and all related structures Neck Neck: Yes normal visual inspection, Yes full ROM and Yes trachea midline Thyroid: Thyroid normal Resp Effort & Inspection: normal respiratory effort, able to speak in complete sentences, no tracheal deviation and symmetric chest movement Auscultation: clear to auscultation bilaterally Cardio Rate: regular rate Heart sounds: S1 normal heart sound present and S2 abnormal GI Inspection: Yes normal to inspection and No distended Palpation (GI): Soft to palpation, not firm, nontender and No hepatosplenomegaly present Auscultation: normal bowel sounds General: Yes no CVA tenderness Back/Spine/Pelvis Back: no CVA tenderness Skin General skin exam: elasticity normal, turgor normal and dry skin Neuro General: patient oriented x3 Psych Appearance: grossly normal Mental Status: mental status grossly normal Assessment & Plan Assessment & Plan (1) GERD (gastroesophageal reflux disease): Code(s): K21.9 - Gastro-esophageal reflux disease without esophagitis Qualifiers: Esophagitis presence: esophagitis presence not specified Qualified Code(s): K21.9 - Gastro-esophageal reflux disease without esophagitis (2) Postprandial abdominal bloating: Code(s): R14.0 - Abdominal distension (gaseous) (3) Constipation: Code(s): K59.00 - Constipation, unspecified Qualifiers: Constipation type: slow transit constipation Qualified Code(s): K59.01 - Slow transit constipation Plan Patient will start taking 2 Senokot every evening. Patient was also encouraged to increase fluid intake and activity to promote better bowel motility. Continue taking as omeprazole every morning half an hour before breakfast. Patient can try to wean herself off, however if she continues to have symptoms she should stay on it for now. Discussed with patient avoiding dietary triggers and late night snacking. Staying upright for minimum 3 hours after meals discussed with patient. Patient will return in the office in 6 months, sooner on as needed basis. Patient is agreeable to this plan and verbalizes understanding of instructions. She was given the opportunity to ask questions and all questions answered. Thank you for allowing me to participate in her care Medications: Changed From sennosides (Natural Senna Laxative) 8.6 mg PO BEDTIME 90 tabs 3RF constipation K59.00 - Constipation, unspecified To sennosides (Natural Senna Laxative) 17.2 mg (2 x 8.6 mg) PO BEDTIME 180 tabs 3RF constipation K59.00 - Constipation, unspecified Refilled esomeprazole magnesium 20 mg PO DAILY 90 caps 2RF Discontinued famotidine (Pepcid) Discontinued Reason: Patient no longer taking 20 mg PO BEDTIME 90 tabs 1RF K21.9 - Gastro-esophageal reflux disease without esophagitis polyethylene glycol 3350 (Miralax) Discontinued Reason: Patient no longer taking 17 grams PO DAILY 510 grams 2RF Coding Level of Care Code Est Pt Level 3 (18665) Diagnoses Gastroesophageal reflux disease, unspecified whether esophagitis present K21.9 Esophagitis presence: esophagitis presence not specified Postprandial abdominal bloating R14.0 Slow transit constipation K59.01 Constipation type: slow transit constipation Time Spent (min) 25 Comment 15 minutes spent with patient and additional 10 minutes spent reviewing her records
== END 2023-08-14 14:57 | disposition home or self-care (01) ==
PROVIDERS: Visit Provider Nurse Practitioner Family
DX: K21.9 Gastro-esophageal reflux disease without esophagitis (principal); R14.0 Abdominal distension (gaseous); K59.01 Slow transit constipation
CPT/HCPCS: 99213

== ENCOUNTER → 2023-08-14 14:11 | Outpatient (BNVA) | payer BC, SELFPAY | PROVIDERS: Visit Provider Nurse Practitioner Family ==

== ENCOUNTER 2023-08-18 07:57 | Outpatient (AMB) | payer BC, SELFPAY ==
--- NOTE | 2023-08-18 08:07 | MHC.PC.OV ---
Vital Signs 08/18/23 08:08 Height 5 ft 6 in Weight 167 lb 8 oz BMI 27.0 BP 108/70 Blood Pressure Location Lt brachial Position Sitting Pulse 76 Pulse Source Pulse Oximeter Pulse Oximetry (%) 99 Oxygen Delivery Method Room Air Intake Visit Reasons: PE Intake Note: pt is here for her PE pt had her flu vaccine at work end of May start of Jun but has not had the covid booster Is last menstrual period known: No (pt says she does not get her menstrual period ) Allergies Seasonal Allergies Allergy (Mild, Verified 08/18/23 08:19) Runny Nose Medication List - Last Reconciled 08/18/23 by Emmie Dillon MD esomeprazole magnesium 20 mg PO DAILY etonogestrel (Nexplanon) subdermal fexofenadine (Beatriz Allergy) 180 mg PO DAILY sennosides (Natural Senna Laxative) 17.2 mg (2 x 8.6 mg) PO BEDTIME simethicone (Gas Relief (simethicone)) 125 mg PO TID-QID PRN Tobacco use date assessed: 08/18/23 Dental Screening Dental Screen Date: 08/18/23 Did you have a dental visit in the last 12 months?: Yes Did you have a dental problem in the last 6 months where you did not have access to dental care?: No Was dental information given to patient?: Patient has dentist HPI PE HPI Details 43-year-old lady here today for her physical exam. She has chronic GERD currently on esomeprazole 20 mg daily, and simethicone as needed for gas relief, currently followed by GI recently did an upper endoscopy.. Has Nexplanon for control. She is currently up-to-date with her screening mammogram, due again August 2023. Up-to-date with her screening for cervical cancer, done in 2021 with negative findings, done at [facility]. Received already her flu shot at work but has not yet had her COVID booster [facility] Medical History Environmental and seasonal allergies GERD (gastroesophageal reflux disease) Postprandial abdominal bloating Bilateral finger arthralgia Family history of thyroid disease Family history of diabetes mellitus in first degree relative Lumbago syndrome Surgical History History of esophagogastroduodenoscopy (EGD) History of dermoid cyst excision History of section Family History Father Hepatitis C Mother Asthma HTN (hypertension) Rosacea Maternal Grandmother Breast cancer Maternal Grandfather History of heart attack Paternal Grandmother No problems noted. Paternal Grandfather No problems noted. Brother No problems noted. Brother No problems noted. Sister No problems noted. Daughter No problems noted. 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 1. Little interest or pleasure in doing things: several days 2. Feeling down, depressed, or hopeless: not at all 3. Trouble falling or staying asleep, or sleeping too much: several days 4. Feeling tired or having little energy: several days 5. Poor appetite or overeating: not at all 6. Feeling bad about yourself - or that you are a failure or have let yourself or your family down: not at all 7. Trouble concentrating on things, such as reading the newspaper or watching television: not at all 8. Moving or speaking so slowly that other people could have noticed. Or the opposite - being so fidgety or restless that you have been moving around a lot more than usual: not at all 9. Thoughts that you would be better off or of hurting yourself in some way: not at all Total score: 3 Depression Screening Interpretation: Negative Depression Screening Done: Yes 74884 - PHQ-9 Billing: Yes Source: Developed by Drs. Lopez Amaral, Shea Abelino Adair and colleagues, with an educational tyrone from [employer]. Thrive Questionnaire Date Thrive assessed: 08/18/23 I am a: Patient What is your living situation today?: I have a steady place to live Within the past 12 months, did the food you bought not last and you didn't have the money to get more?: Never true Within the past 12 months, did you worry whether your food would run out before you got money to buy more?: Never true Do you have trouble paying for medicines?: No Do you have trouble getting transportation to medical appointments?: No Do you have trouble paying your heating and electricity bill?: No Do you have trouble taking care of your child, family member or friend?: No Do you have trouble with day-to-day activities such as bathing, preparing meals, shopping, managing finances, etc.?: No Are you currently unemployed and looking for a job?: No Are you interested in more education?: No Please select the resources that you would like help with: None AUDIT C Alcohol Use Questionnaire (AUDIT-C) 1. How often do you have a drink containing alcohol?: 2-4 times a month 2. How many drinks containing alcohol do you have on a typical day when you are drinking?: 1 or 2 3. How often do you have six or more drinks on one occasion?: Never Total Score: 2 IFTIKHAR-7 AMB Questionnaire IFTIKHAR-7 Date IFTIKHAR - 7 assessed: 08/18/23 Feeling nervous, anxious, or on edge: 0 = Not at all Not being able to stop or control worryin = Several days Worrying too much about different things: 2 = More than half the days Trouble relaxin = Not at all Being so restless that it is hard to sit still: 0 = Not at all Becoming easily annoyed or irritable: 1 = Several days Feeling afraid as if something awful might happen: 1 = Several days Total IFTIKHAR-7 score (0-4 normal; 5-9 mild; 10-14 moderate; 15-21 severe): 5 Source: Developed by Drs. Lopez Amaral, Abelino Juarez and colleagues, with an educational tyrone from [employer]. IFTIKHAR-7 Assessment Billing IFTIKHAR-7 Assessment Tool: IFTIKHAR-7 Assessment 87757 Review of Systems Const Denies weight gain and Denies weight loss Eyes Details: Goes to [facility] Reports no additional complaints ENT Reports no additional complaints, Denies dysphagia, Reports nasal congestion, Denies odynophagia, Reports post nasal drip and Denies sinus pain Card Reports no additional complaints Resp Reports no additional complaints and Denies wheezing GI Denies abdominal pain, Denies belching, Denies melena, Denies bloating, Reports constipation (Occasional), Denies dysphagia, Denies excessive flatus, Denies dyspepsia, Denies heartburn, Denies diarrhea, Denies loose stools, Denies nausea, Denies odynophagia and Denies vomiting Reports no additional complaints Musc Reports no additional complaints Skin/Breast Denies breast swelling, Denies breast pain, Denies breast mass, Denies lesions and Denies rash Neuro Reports no additional complaints Psych Reports no additional complaints Endo Reports no additional complaints Anthony/Lymph Denies easy bleeding and Denies easy bruising Aller/Immun Reports seasonal rhinorrhea and Denies wheezing Physical exam (Primary Care) Vital Signs: Last Vital Signs Pulse 76 08/18/23 08:08 BP 108/70 08/18/23 08:08 Pulse Ox 99 08/18/23 08:08 Oxygen Delivery Method Room Air 08/18/23 08:08 BMI result Body Mass Index 27.0 Tobacco/Smoking Status: Tobacco use Status Tobacco use date assessed 08/18/23 08/18/23 08:13 Patient Tobacco Use Status Former Tobacco user 08/18/23 08:08 e-Cigarette/Vaping Use Never Used 08/18/23 08:08 PHQ-9: PHQ-9 Score PHQ-9: Total score 3 08/18/23 08:18 Depression Screening Interpretation: Negative Thrive Assessment: Date of Thrive Assessment Date Thrive assessed 08/18/23 08/18/23 08:18 Const General: comfortable and no acute distress Orientation/consciousness: patient oriented x3 HENMT Head: Yes normocephalic Ears: external ears normal, TM's normal bilaterally and EAC's normal General nose exam: Normal external nose present, No nasal discharge present and Abnormal mucous membranes and turbinates present pale Face and sinus: Yes sinus tenderness (Maxillary area left more than the right) Eyes General: appearance normal, both eyes and all related structures Neck Neck: Yes full ROM, Yes no lymphadenopathy and Yes supple Chest Chest palpation & inspection: normal inspection of the chest Breast/axilla palpation: normal palpation of the breasts Resp Auscultation: clear to auscultation bilaterally Cardio Other: S1-S2 present regular rate and rhythm GI Inspection: Yes normal to inspection Palpation (GI): Soft to palpation, nontender, no guarding and no masses Auscultation: normal bowel sounds Other: Sees OBGYN at [facility] General: Yes no CVA tenderness Back/Spine/Pelvis Back: no CVA tenderness and No back tenderness Thoracic/Lumbar Spine: thoracic and lumbar spine normal to inspection Skin General skin exam: no rashes or lesions noted Neuro General: patient oriented x3, gait normal, tone normal, moves all extremities, Normal light touch and pain sensation and no focal motor deficits Gait exam (Neuro): Normal gait present Extrem General: Yes full ROM, Yes no joint enlargement, Yes no clubbing, cyanosis or edema, Yes no calf tenderness and Yes normal gait Psych Appearance: grossly normal and well kempt Mental Status: mental status grossly normal Speech and movement: Normal speech and movement present Affect: normal affect Attitude: cooperative Thought process: Normal thought process present Thought content: Normal thought content present Assessment and Plan Assessment & Plan (1) Annual visit for general adult medical examination with abnormal findings: Code(s): Z00.01 - Encounter for general adult medical examination with abnormal findings Plan: Will check appropriate labs. Continue with regular dental visit every 6 months and regular eye exams, at least every 2 years. Take adequate calcium in diet and vitamin-D 3 at 2000 IU per cap once a day, in addition to weight-bearing exercises to help maintain good muscle tone and weight control. Instructed to do self-breast exam, and recommended to get yearly mammogram, starting at age 40. Immunization information provided: Yearly flu vaccine given, recommended to get COVID booster but, but patient thinking about it (2) GERD (gastroesophageal reflux disease): Code(s): K21.9 - Gastro-esophageal reflux disease without esophagitis Qualifiers: Esophagitis presence: esophagitis presence not specified Qualified Code(s): K21.9 - Gastro-esophageal reflux disease without esophagitis Plan: Continued on esomeprazole by GI (3) Family history of diabetes mellitus in first degree relative: Code(s): Z83.3 - Family history of diabetes mellitus Plan: Your fasting blood sugars followed elevated above 100 mg/dL. Will repeat a fasting blood sugar and hemoglobin A1c. Impaired glucose metabolism O2 at risk for developing diabetes mellitus type 2, as well as heart attack and stroke later on. Lifestyle changes at just weight loss, healthy eating habits, and regular exercise are important, and can prevent the progression to diabetes (4) Environmental and seasonal allergies: Comment: Followed by Dr. Mobley , getting allergy shots Code(s): - Other allergic rhinitis Plan: Sees Dr. Rangel for allergy shots, currently on fexofenadine, samples given for saline nasal spray Orders: Orders Hemoglobin A1c Today J30. - Other allergic rhinitis, K21.9 - Gastro-esophageal reflux disease without esophagitis, Z00.01 - Encounter for general adult medical examination with abnormal findings, Z83.3 - Family history of diabetes mellitus Aspartate Amino Transferase Today J. - Other allergic rhinitis, K21.9 - Gastro-esophageal reflux disease without esophagitis, Z00.01 - Encounter for general adult medical examination with abnormal findings, Z83.3 - Family history of diabetes mellitus Lipid Panel Today J. - Other allergic rhinitis, K21.9 - Gastro-esophageal reflux disease without esophagitis, Z00.01 - Encounter for general adult medical examination with abnormal findings, Z83.3 - Family history of diabetes mellitus Vitamin D 25-OH Total Today J. - Other allergic rhinitis, K21.9 - Gastro-esophageal reflux disease without esophagitis, Z00.01 - Encounter for general adult medical examination with abnormal findings, Z83.3 - Family history of diabetes mellitus Alanine Aminotransferase Today J30.89 - Other allergic rhinitis, K21.9 - Gastro-esophageal reflux disease without esophagitis, Z00.01 - Encounter for general adult medical examination with abnormal findings, Z83.3 - Family history of diabetes mellitus Basic Metabolic Panel Fasting Today J30.89 - Other allergic rhinitis, K21.9 - Gastro-esophageal reflux disease without esophagitis, Z00.01 - Encounter for general adult medical examination with abnormal findings, Z83.3 - Family history of diabetes mellitus Vitamin B12 and Folate Today J30.89 - Other allergic rhinitis, K21.9 - Gastro-esophageal reflux disease without esophagitis, Z00.01 - Encounter for general adult medical examination with abnormal findings, Z83.3 - Family history of diabetes mellitus Coding Level of Care Code Est Pt Prev Care 40-64y(15078) Diagnoses Annual visit for general adult medical examination with abnormal findings Z00.01 Gastroesophageal reflux disease, unspecified whether esophagitis present K21.9 Esophagitis presence: esophagitis presence not specified Family history of diabetes mellitus in first degree relative Z83.3 Environmental and seasonal allergies J30.89 Additional Codes IFTIKHAR-7 Assessment Billing - IFTIKHAR-7 Assessment Tool: IFTIKHAR-7 Assessment 99889 ([id number])
[2023-08-18 08:08] VITALS: BP 108/70; PULSE 76; O2SAT 99; BMI 27.0
== END 2023-08-18 10:10 | disposition home or self-care (01) ==
PROVIDERS: Visit Provider Internal Medicine
DX: Z00.00 Encounter for general adult medical examination without abnormal findings (principal); K21.9 Gastro-esophageal reflux disease without esophagitis; Z83.3 Family history of diabetes mellitus; J30.89 Other allergic rhinitis
CPT/HCPCS: 99396

== ENCOUNTER 2023-08-18 08:39 | Outpatient (REF) | payer BC, SELFPAY ==
[2023-08-18 11:30] LABS: Estimated Average Glucose 108 mg/dL; Hemoglobin A1c % 5.4 % (<6.0)
[2023-08-18 12:04] LABS: Alanine Aminotransferase 21 U/L (0-31); Anion Gap 8 (12-20); Aspartate Amino Transferase 19 U/L (5-31); Blood Urea Nitrogen 17 mg/dL (9-16); Calcium 9.3 mg/dL (8.4-10.2); Carbon Dioxide 27 mmol/L (22-29); Chloride 105 mmol/L (96-108); Cholesterol 156 mg/dL (<200); Estimated Glomerular Filt Rate > 60; Glucose Fasting 110 mg/dL (60-99); HDL Cholesterol 47 mg/dL (>40); LDL Cholesterol Calculated 79 mg/dL (<100); Potassium 4.1 mmol/L (3.3-5.1); Sodium 136 mmol/L (135-145); Triglycerides 154 mg/dL (<150)
[2023-08-18 12:08] LABS: Folate 8.2 ng/mL (> or = 4.0); Vitamin B12 333 pg/mL (200-900)
== END 2023-08-18 08:40 | disposition home or self-care (01) ==
LOC: HO.HMGCLDS 08:39
PROVIDERS: PCP Internal Medicine; Visit Provider Internal Medicine
DX: Z00.01 Encounter for general adult medical examination with abnormal findings (principal); K21.9 Gastro-esophageal reflux disease without esophagitis; J30.89 Other allergic rhinitis; Z83.3 Family history of diabetes mellitus
CPT/HCPCS: 36415; 80048; 80061; 82306; 82607; 82746; 83036; 84450; 84460

== ENCOUNTER 2023-09-01 09:02 | Outpatient (REF) | payer BC, SELFPAY ==
--- NOTE | ~2023-09-01 | MM_ITS ---
EXAMINATION: MM SCREENING DIGITAL BREAST TOMOSYNTHESIS, BILATERAL CLINICAL INFORMATION: Screening. Asymptomatic. COMPARISON: Mammography: This study is compared with prior exams dating back to 2021. TECHNIQUE: Digital breast tomosynthesis is performed in both the craniocaudal and mediolateral oblique views along with computer-aided detection (CAD). Synthesized 2D images are generated from the tomosynthesis. FINDINGS: The breasts are heterogeneously dense, which may obscure small masses (ACR BI-RADS breast composition Category c). In the lower outer quadrant of the right breast, there is a focal asymmetry which warrants additional mammographic and targeted sonographic evaluation. In the left breast, there are no significant masses, abnormal calcifications, or other abnormalities. MM/MM tomosynthesis screening BI IMPRESSION: Focal asymmetry of the right breast warrants additional mammographic and targeted sonographic evaluation. No mammographic signs of malignancy left breast. ASSESSMENT: BI-RADS BI-RADS 0 - Incomplete: Needs additional Imaging. RECOMMENDATION: 1. Additional views of the right breast. 2. Targeted ultrasound if warranted after review of the additional views. 3. Radiology department staff will contact the patient for additional imaging. Additional Imaging required This examination should not preclude the clinical evaluation of a suspicious palpable abnormality. This patient's information was entered into a reminder system with a target due date for their next mammogram.
== END 2023-09-01 09:03 | disposition home or self-care (01) ==
LOC: HO.MAMMO 09:02
PROVIDERS: PCP Internal Medicine; Visit Provider Internal Medicine
DX: Z12.31 Encounter for screening mammogram for malignant neoplasm of breast (principal)
CPT/HCPCS: 77063; 77067

== ENCOUNTER → 2023-09-01 09:15 | Outpatient (BNV) | payer BC, SELFPAY | PROVIDERS: PCP Internal Medicine; Visit Provider Radiology Diagnostic Radiology | DX: Z12.31 Encounter for screening mammogram for malignant neoplasm of breast (principal) | CPT/HCPCS: 77063; 77067 ==

== ENCOUNTER 2023-10-14 14:50 | Outpatient (REF) | payer BC, SELFPAY ==
--- NOTE | ~2023-10-14 | MM_ITS ---
EXAMINATION: MM DIAGNOSTIC DIGITAL BREAST TOMOSYNTHESIS, RIGHT CLINICAL INFORMATION: Follow-up diagnostic right mammogram for focal asymmetry lower outer quadrant. COMPARISON: Mammography: 09/01/2023, 08/29/2022. TECHNIQUE: Digital breast tomosynthesis is performed. 2D images are generated from the tomosynthesis. The following views are obtained: 3-D full-field right mediolateral view, and 3-D spot compression right CC and MLO views were obtained. FINDINGS: The breasts are extremely dense, which lowers the sensitivity of mammography (ACR BI-RADS breast composition Category d). Additional views show complete effacement of the focal asymmetry in question in the lower outer quadrant of the right breast. Only normal breast parenchyma is identified without evidence of mass, grouped calcifications, or architectural distortion. No skin changes or axillary abnormality. MM/MM tomosynthesis added views R IMPRESSION: No persistent findings suspicious for malignancy. Recommend the patient return to routine annual screening mammography. ASSESSMENT: BI-RADS BI-RADS 1 - Negative RECOMMENDATION: 1 year F/U Results were provided to the patient at time of visit by the technologist. This patient's information was entered into a reminder system with a target due date for their next mammogram.
== END 2023-10-14 14:51 | disposition home or self-care (01) ==
LOC: HO.MAMMO 14:50
PROVIDERS: PCP Internal Medicine; Visit Provider Internal Medicine
DX: N64.89 Other specified disorders of breast (principal)
CPT/HCPCS: 77061; 77065

== ENCOUNTER → 2023-10-14 15:00 | Outpatient (BNV) | payer BC, SELFPAY | PROVIDERS: PCP Internal Medicine; Visit Provider Radiology Diagnostic Radiology | DX: R92.8 Other abnormal and inconclusive findings on diagnostic imaging of breast (principal) | CPT/HCPCS: 77061; 77065 ==

== ENCOUNTER 2023-11-17 11:26 | Outpatient (AMB) | payer BC, SELFPAY ==
--- NOTE | 2023-11-17 11:34 | A.OFFPC_ITS ---
Vital Signs 11/17/23 11:36 Height 5 ft 6 in Weight 166 lb BMI 26.8 BP 102/64 Blood Pressure Location Lt brachial Position Sitting Pulse 94 Pulse Source Pulse Oximeter Pulse Oximetry (%) 99 Oxygen Delivery Method Room Air Intake Visit Reasons: Hand hurt. Weight gain and labs. Intake Note: Pt is here today c/o bilateral hand pain/ also weight gain/ to discuss recent lab results from 07/2023 Allergies Seasonal Allergies Allergy (Mild, Verified 11/17/23 23:56) Runny Nose Medication List - Last Reconciled 11/17/23 by Emmie Dillon MD esomeprazole magnesium 20 mg PO DAILY etonogestrel (Nexplanon) subdermal fexofenadine (Beatriz Allergy) 180 mg PO DAILY sennosides (Natural Senna Laxative) 17.2 mg (2 x 8.6 mg) PO BEDTIME simethicone (Gas Relief (simethicone)) 125 mg PO TID-QID PRN Tobacco use date assessed: 11/17/23 Dental Screening Dental Screen Date: 11/17/23 Did you have a dental visit in the last 12 months?: Yes Did you have a dental problem in the last 6 months where you did not have access to dental care?: No Was dental information given to patient?: Patient has dentist HPI Hand hurt. Weight gain and labs. HPI Details 43-year-old lady here today complaining of recurrent pain stiffness in fingers of both hands right more than the left. Patient has been taking Tylenol which affords only temporary relief. 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 She also has been having hard time losing weight, it was noted on this visit that she did lose 1 lb as compared to last check. Does not follow any particular diet, and states that her weakness are pastries and frequently eats at night before going to bed. She also is admits to not getting any regular exercise. it was noted on last fasting labs that were done that she had low vitamin-D level, fasting blood sugar in the prediabetic range but hemoglobin A1c was normal, and had mildly elevated triglyceride levels. [facility] Medical History Vitamin D deficiency Impaired fasting glucose Hypertriglyceridemia Bilateral hand pain Bilateral finger arthralgia Environmental and seasonal allergies GERD (gastroesophageal reflux disease) Postprandial abdominal bloating Family history of thyroid disease Family history of diabetes mellitus in first degree relative Lumbago syndrome Surgical History History of esophagogastroduodenoscopy (EGD) History of dermoid cyst excision History of section Family History Father Hepatitis C Mother Asthma HTN (hypertension) Rosacea Maternal Grandmother Breast cancer Maternal Grandfather History of heart attack Paternal Grandmother No problems noted. Paternal Grandfather No problems noted. Brother No problems noted. Brother No problems noted. Sister No problems noted. Daughter No problems noted. 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 1. Little interest or pleasure in doing things: not at all 2. Feeling down, depressed, or hopeless: not at all 3. Trouble falling or staying asleep, or sleeping too much: not at all 4. Feeling tired or having little energy: not at all 5. Poor appetite or overeating: not at all 6. Feeling bad about yourself - or that you are a failure or have let yourself or your family down: not at all 7. Trouble concentrating on things, such as reading the newspaper or watching television: not at all 8. Moving or speaking so slowly that other people could have noticed. Or the opposite - being so fidgety or restless that you have been moving around a lot more than usual: not at all 9. Thoughts that you would be better off or of hurting yourself in some way: not at all Total score: 0 Depression Screening Interpretation: Negative Depression Screening Done: Yes 78343 - PHQ-9 Billing: Yes Source: Developed by Drs. Lopez Amaral, Abelino Juarez and colleagues, with an educational tyrone from [employer]. Thrive Questionnaire Date Thrive assessed: 11/17/23 I am a: Patient What is your living situation today?: I have a steady place to live Within the past 12 months, did the food you bought not last and you didn't have the money to get more?: Never true Within the past 12 months, did you worry whether your food would run out before you got money to buy more?: Never true Do you have trouble paying for medicines?: No Do you have trouble getting transportation to medical appointments?: No Do you have trouble paying your heating and electricity bill?: No Do you have trouble taking care of your child, family member or friend?: No Do you have trouble with day-to-day activities such as bathing, preparing meals, shopping, managing finances, etc.?: No Are you currently unemployed and looking for a job?: No Are you interested in more education?: No THRIVE Score: 0 AUDIT C Alcohol Use Questionnaire (AUDIT-C) 1. How often do you have a drink containing alcohol?: 4 or more times a week 2. How many drinks containing alcohol do you have on a typical day when you are drinking?: 1 or 2 3. How often do you have six or more drinks on one occasion?: Never Total Score: 4 IFTIKHAR-7 AMB Questionnaire IFTIKHAR-7 Date IFTIKHAR - 7 assessed: 11/17/23 Feeling nervous, anxious, or on edge: 1 = Several days Not being able to stop or control worryin = Not at all Worrying too much about different things: 1 = Several days Trouble relaxin = Several days Being so restless that it is hard to sit still: 0 = Not at all Becoming easily annoyed or irritable: 1 = Several days Feeling afraid as if something awful might happen: 0 = Not at all Total IFTIKHAR-7 score (0-4 normal; 5-9 mild; 10-14 moderate; 15-21 severe): 4 Source: Developed by Shea Woods Kurt Kroenke and colleagues, with an educational tyrone from [employer]. IFTIKHAR-7 Assessment Billing IFTIKHAR-7 Assessment Tool: IFTIKHAR-7 Assessment 53057 Review of Systems Const Reports no additional complaints Eyes Details: Goes to [place] [facility] Reports no additional complaints ENT Reports no additional complaints Card Reports no additional complaints Resp Reports no additional complaints GI Denies abdominal pain, Denies melena, Denies bloating, Reports constipation (Occasional) and Denies heartburn Reports no additional complaints Musc Reports as per HPI, Denies joint swelling, Denies numbness and Reports stiffness (Fingers of both hands) Neuro Reports no additional complaints and Denies numbness Psych Reports no additional complaints Endo Reports no additional complaints Anthony/Lymph Denies easy bleeding and Denies easy bruising Aller/Immun Reports seasonal rhinorrhea Physical exam (Primary Care) Vital Signs: Last Vital Signs Pulse 94 11/17/23 11:36 BP 102/64 11/17/23 11:36 Pulse Ox 99 11/17/23 11:36 Oxygen Delivery Method Room Air 11/17/23 11:36 BMI result Body Mass Index 26.8 BMI Assessment/Plan discussion: High BMI High, discussed plan: lifestyle, weight reduction, dietary, physical activity and alcohol moderation Tobacco/Smoking Status: Tobacco use Status Tobacco use date assessed 11/17/23 11/17/23 11:40 Patient Tobacco Use Status Former Tobacco user 11/17/23 11:36 e-Cigarette/Vaping Use Never Used 11/17/23 11:36 Depression Screening Interpretation: Negative Thrive Assessment: Date of Thrive Assessment Date Thrive assessed 08/18/23 11/17/23 11:36 Const General: no acute distress Orientation/consciousness: patient oriented x3 HENMT Ears: external ears normal, TM's normal bilaterally and EAC's normal General nose exam: Normal external nose present Eyes General: appearance normal, both eyes and all related structures Neck Neck: Yes full ROM, Yes no lymphadenopathy and Yes supple Chest Chest palpation & inspection: normal inspection of the chest Breast/axilla palpation: normal palpation of the breasts Resp Auscultation: clear to auscultation bilaterally Cardio Other: S1-S2 present regular rate and rhythm GI Inspection: Yes normal to inspection Palpation (GI): Soft to palpation, nontender, no guarding and no masses Auscultation: normal bowel sounds Skin General skin exam: no rashes or lesions noted Neuro General: patient oriented x3, gait normal, tone normal, moves all extremities, Normal light touch and pain sensation and no focal motor deficits Gait exam (Neuro): Normal gait present Extrem Other: Slight ulnar deviation of fingers, bilateral General: Yes full ROM, Yes no joint enlargement, Yes no clubbing, cyanosis or edema, Yes no calf tenderness and Yes normal gait Psych Appearance: grossly normal and well kempt Mental Status: mental status grossly normal Speech and movement: Normal speech and movement present Affect: normal affect Attitude: cooperative Thought process: Normal thought process present Thought content: Normal thought content present Results Reviewed Results Reviewed: RUN: 11/17/23 1156 PAGE 1 [facility] [address] [place] [id number] Desktop Support Manager: Chris Alvarez M.D. Specimen Inquiry Name: Hansa Crowder Age/Sex: 43/F : 1980 Unit#: [id number] Attend Dr: Emmie Dillon MD Re08/18/23 Status: DEP REF Location: [facility] Disch: SPEC : [id number] ESTHER: 08/18/23 STATUS: COMP REQ : [id number] RECD: 08/18/[address]: Emmie Dillon MD COMP: 08/18/23 ENTERED: 08/18/[address]: ORDERED: Met Prof Fast, AST, ALT, Lipid Panel, Vitamin D 25-OH Test Result Flag Reference Sodium 136 135-145 mmol/L Potassium 4.1 3.3-5.1 mmol/L CL 105 96-108 mmol/L CO2 27 22-29 mmol/L Gap 8 L 12-20 BUN 17 H 9-16 mg/dL Creat 0.82 0.5-1.4 mg/dL EGFR > 60 NOTE: For -[place] individuals, multiply the result by 1.210. Chronic Kidney Disease: Estimated GFR < 60 mL/min/1.73m2 Severe Kidney Disease: Estimated GFR < 15 mL/min/1.73m2 FBS 110 H 60-99 mg/dL A fasting glucose from 100-125 mg/dl is considered impaired (pre-diabetes). CA 9.3 8.4-10.2 mg/dL AST (GOT) 19 5-31 U/L ALT (GPT) 21 0-31 U/L Triglyceride 154 H <150 mg/dL Desirable Triglyceride: less than 150 mg/dL Borderline High Triglyceride 150-199 mg/dL High Triglyceride: 200-499 mg/dL Very High Triglyceride: greater than or equal to 5OO mg/dL Cholesterol 156 <200 mg/dL Desirable Cholesterol: less than 200 mg/dL Borderline High Cholesterol: 200-239 mg/dL High Cholesterol: greater than 239 mg/dL LDL Calculated 79 <100 mg/dL Desirable LDL: less than 100 mg/dL Near Optimal/Above Optimal LDL: 110-129 mg/dL Borderline High LDL: 130-159 mg/dL High LDL: 160-189 mg/dL Very High LDL: greater than or equal to 190 mg/dL HDL 47 >40 mg/dL Desirable HDL: greater than 40 mg/dL Note: This HDL assay may give artificially low results in patients with liver disease. Vit D 25-OH Tot 28.0 L >30 ng/mL Health Based Reference Values* < 20 ng/mL Deficient 20-30 ng/mL Insufficient > 30 ng/mL Sufficient Laboratory Tests 08/18/23 08:42 Estimat Average Glucose 108 Hemoglobin A1c % 5.4 Assessment and Plan Assessment & Plan (1) Bilateral hand pain: Code(s): M79.641 - Pain in right hand; M79.642 - Pain in left hand Plan: Ordered sed rate, CRP, rheumatoid factor. Joint pains likely due to osteoarthritis and overuse . Try massaging diclofenac or Aleve gel to affected joints in hands. Resting of hands as much as possible advised (2) Bilateral finger arthralgia: Code(s): M25.541 - Pain in joints of right hand; M25.542 - Pain in joints of left hand Plan: Ordered sed rate, CRP, rheumatoid factor. Joint pains likely due to osteoarthritis and overuse . Try massaging diclofenac or Aleve gel to affected joints in hands. Resting of hands as much as possible advised (3) Impaired fasting glucose: Code(s): R73.01 - Impaired fasting glucose Plan: Your fasting blood sugars were elevated in the past above 100 mg/dL, but hemoglobin A1c recently obtained was within normal limits at 5.4%.. Impaired glucose metabolism O2 at risk for developing diabetes mellitus type 2, as well as heart attack and stroke later on. Lifestyle changes at just weight loss, healthy eating habits, and regular exercise are important, and can prevent the progression to diabetes (4) Hypertriglyceridemia: Code(s): E78.1 - Pure hyperglyceridemia Plan: Reviewed recent fasting lipid profile with patient with elevated triglycerides . Stressed importance of adherence to low-cholesterol diet and regular car exercise, at least 30 minutes 3 to 4 times a week. Advised patient to make healthy food choices, eat more fruits, vegetables, whole grains, wild caught fish and low-fat dairy. Limit amount of meat and fried or fatty food products, as well as processed foods and fast foods. Follow-up scheduled with repeat fasting lipid panel in 3 months. (5) Vitamin D deficiency: Code(s): E55.9 - Vitamin D deficiency, unspecified Plan: Advised to take mlmg-eap-oipklod vitamin D3 at 5000 units once a day for the next 2 months, and then decrease it to just 2000 units daily afterwards. Will repeat another vitamin-D level in 3 month Orders: Orders Erythrocyte Sedimentation Rate 01/27/24 E78.1 - Pure hyperglyceridemia, M25.541 - Pain in joints of right hand, M25.542 - Pain in joints of left hand, M79.641 - Pain in right hand, M79.642 - Pain in left hand, R73.01 - Impaired fasting glucose CRP High Sensitivity 01/27/24 E78.1 - Pure hyperglyceridemia, M25.541 - Pain in joints of right hand, M25.542 - Pain in joints of left hand, M79.641 - Pain in right hand, M79.642 - Pain in left hand, R73.01 - Impaired fasting glucose Hemoglobin A1c 01/27/24 E78.1 - Pure hyperglyceridemia, M25.541 - Pain in joints of right hand, M25.542 - Pain in joints of left hand, M79.641 - Pain in right hand, M79.642 - Pain in left hand, R73.01 - Impaired fasting glucose Glucose Fasting 01/27/24 E78.1 - Pure hyperglyceridemia, M25.541 - Pain in joints of right hand, M25.542 - Pain in joints of left hand, M79.641 - Pain in right hand, M79.642 - Pain in left hand, R73.01 - Impaired fasting glucose Rheumatoid Factor 01/27/24 E78.1 - Pure hyperglyceridemia, M25.541 - Pain in joints of right hand, M25.542 - Pain in joints of left hand, M79.641 - Pain in right hand, M79.642 - Pain in left hand, R73.01 - Impaired fasting glucose Lipid Panel 01/27/24 E78.1 - Pure hyperglyceridemia, M25.541 - Pain in joints of right hand, M25.542 - Pain in joints of left hand, M79.641 - Pain in right hand, M79.642 - Pain in left hand, R73.01 - Impaired fasting glucose Vitamin D 25-OH Total 01/27/24 E78.1 - Pure hyperglyceridemia, M25.541 - Pain in joints of right hand, M25.542 - Pain in joints of left hand, M79.641 - Pain in right hand, M79.642 - Pain in left hand, R73.01 - Impaired fasting glucose Coding Level of Care Code Est Pt Level 4 (53918) Diagnoses Bilateral hand pain M79.641; M79.642 Bilateral finger arthralgia M25.541; M25.542 Impaired fasting glucose R73.01 Hypertriglyceridemia E78.1 Vitamin D deficiency E55.9 Additional Codes IFTIKHAR-7 Assessment Billing - IFTIKHAR-7 Assessment Tool: IFTIKHAR-7 Assessment 62553 ([id number])
[2023-11-17 11:36] VITALS: BP 102/64; PULSE 94; O2SAT 99; BMI 26.8
== END 2023-11-17 12:12 | disposition home or self-care (01) ==
PROVIDERS: PCP Internal Medicine; Visit Provider Internal Medicine
DX: M79.641 Pain in right hand (principal); M79.642 Pain in left hand; M25.541 Pain in joints of right hand; M25.542 Pain in joints of left hand; R73.01 Impaired fasting glucose; E78.1 Pure hyperglyceridemia; E55.9 Vitamin D deficiency, unspecified
CPT/HCPCS: 99214

== ENCOUNTER 2024-01-08 08:17 | Outpatient (AMB) | payer BC, SELFPAY ==
[2024-01-08 08:34] VITALS: BP 112/70; PULSE 85; TEMP 36.7; O2SAT 99; BMI 27.0
--- NOTE | 2024-01-08 08:34 | MHC.OFFWIV ---
Intake Vital Signs 01/08/24 08:34 Height 5 ft 6 in Weight 167 lb BMI 27.0 BP 112/70 Blood Pressure Location Lt brachial Position Sitting Pulse 85 Pulse Source Pulse Oximeter Temp 98.0 F Temp Source Temporal Artery Scan Pulse Oximetry (%) 99 Oxygen Delivery Method Room Air Intake Visit Reasons: EP UTI (lobby) Intake Note: pt is here today for UTI started yestreday Patient Tobacco Use Status: Former Tobacco user Quit Date: age 24 Allergies Seasonal Allergies Allergy (Mild, Verified 01/08/24 08:42) Runny Nose Do you need a note to return to daycare/school/sports/work: No HPI HPI Comments History of Present Illness Details This is a 43-year-old female who presented to the walk-in clinic complaining of urinary symptoms that began late last night. She reports dysuria, increased urinary frequency, and suprapubic cramping. She denies any fever/chills. She denies any back or flank pain. She denies any nausea/vomiting. She denies any hematuria. Patient states she has had urinary tract infections in the past, which felt similar. [facility] Medical History Vitamin D deficiency Impaired fasting glucose Hypertriglyceridemia Bilateral hand pain Bilateral finger arthralgia Environmental and seasonal allergies GERD (gastroesophageal reflux disease) Postprandial abdominal bloating Family history of thyroid disease Family history of diabetes mellitus in first degree relative Lumbago syndrome Surgical History History of esophagogastroduodenoscopy (EGD) History of dermoid cyst excision History of section Family History Father Hepatitis C Mother Asthma HTN (hypertension) Rosacea Maternal Grandmother Breast cancer Maternal Grandfather History of heart attack Paternal Grandmother No problems noted. Paternal Grandfather No problems noted. Brother No problems noted. Brother No problems noted. Sister No problems noted. Daughter No problems noted. 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 Current occupational exposures/hazards: No Cognitive needs: No Hearing needs: No Vision needs: Yes Female Reproductive History Menstrual Age of Menarche: 15 Review of Systems Const All systems reviewed & are unremarkable except as noted in HPI and below Reports no additional complaints Eyes Reports no additional complaints ENT Reports no additional complaints Card Reports no additional complaints Resp Reports no additional complaints GI Reports no additional complaints Reports no additional complaints Musc Reports no additional complaints Skin/Breast Reports system reviewed and no additional complaints, except as documented Neuro Reports no additional complaints Psych Reports no additional complaints Endo Reports no additional complaints Anthony/Lymph Reports no additional complaints Aller/Immun Reports no additional complaints Physical Exam Vital Signs: Last Vital Signs Temp 98.0 F 01/08/24 08:34 Pulse 85 01/08/24 08:34 BP 112/70 01/08/24 08:34 Pulse Ox 99 01/08/24 08:34 Oxygen Delivery Method Room Air 01/08/24 08:34 BMI result Body Mass Index 27.0 Const Other: Vital signs reviewed. Constitutional: Non-toxic appearing. No acute distress. Well-developed and well-nourished. HEENT: Normocephalic and atraumatic. Skin: Warm and dry. No rashes or lesions noted. Neck: Full and painless range of motion. No cervical lymphadenopathy. Cardio: Regular rate and rhythm. No murmurs, gallops, or rubs. No lower extremity edema. No JVD. Pulmonary: No respiratory distress. No accessory muscle usage. Clear to auscultation bilaterally without wheezing, crackles, or rhonchi. Gastrointestinal: Soft, nontender, and nondistended in all 4 quadrants. Normoactive bowel sounds in all 4 quadrants. Genitourinary: No CVA tenderness. Musculoskeletal: Normal range of motion in joints throughout the body. No deformity or other signs of injury. Neuro: Alert and oriented x4. Cranial nerves 2-12 grossly intact. No focal deficits appreciated. Psych: Normal mood and affect. Results AMB Urinalysis, Automated UA Leukoctes 0 Paulie/uL Last Edit by Chetan Payne MA on 01/08/24 08:59 UA Nitrite Last Edit by Chetan Payne MA on 01/08/24 08:59 UA Urobilinogen 0.2 mg/dL Last Edit by Chetan Payne MA on 01/08/24 08:59 UA Protein 0 mg/dL Last Edit by Chetan Payne MA on 01/08/24 08:59 UA pH 6.0 Last Edit by Chetan Payne MA on 01/08/24 08:59 UA Blood 10 Silas/uL Last Edit by Chetan Payne MA on 01/08/24 08:59 UA Specific [place] 1.025 Last Edit by Chetan Payne MA on 01/08/24 08:59 UA Ketone Negative Last Edit by Chetan Payne MA on 01/08/24 08:59 UA Bilirubin 0 mg/dL Last Edit by Chetan Payne MA on 01/08/24 08:59 UA Glucose 0 mg/dL Last Edit by Chetan Payne MA on 01/08/24 08:59 Assessment & Plan Assessment & Plan (1) Acute cystitis: Code(s): N30.00 - Acute cystitis without hematuria Qualifiers: Hematuria presence: without hematuria Qualified Code(s): N30.00 - Acute cystitis without hematuria Plan: Patient presented to the walk-in clinic complaining of urinary symptoms that began late last night including dysuria, increased urinary frequency, and suprapubic cramping. No CVA tenderness or systemic symptoms to suggest acute pyelonephritis. Patient's vital signs are stable, physical exam is benign, and patient is overall nontoxic appearing. History and physical most consistent with an acute uncomplicated cystitis. Patient sent home on p.o. nitrofurantoin 100 mg twice daily x5 days. Recommended symptomatic management including increased fluids, Advil/Tylenol as needed for pain as long as patient has no medical contraindications, and PO phenazopyridine three times daily as needed x 6 doses. Patient was advised to follow-up here or proceed directly to the emergency room if they were to develop fever/chills, nausea/vomiting, flank/back pain, or worsening/persistent symptoms. Patient verbalizes understanding and they are in agreement with the plan. Medications: New nitrofurantoin macrocrystal must administer with a meal/food 100 mg PO BID 10 caps 0RF phenazopyridine 100 mg PO TID PRN 6 tabs 0RF pain Coding Level of Care Code Est Pt Level 3 (30065) Diagnoses Acute cystitis without hematuria N30.00 Hematuria presence: without hematuria
== END 2024-01-08 10:18 | disposition home or self-care (01) ==
PROVIDERS: PCP Internal Medicine; Visit Provider Physician Assistant Medical
DX: N30.00 Acute cystitis without hematuria (principal)
CPT/HCPCS: 99213

== ENCOUNTER 2024-02-05 06:48 | Outpatient (REF) | payer BC, SELFPAY ==
[2024-02-05 11:00] LABS: Rheumatoid Factor < 13.0 IU/mL (<15.0)
[2024-02-05 11:16] LABS: Estimated Average Glucose 108 mg/dL; Hemoglobin A1c % 5.4 % (<6.0)
[2024-02-05 11:17] LABS: Cholesterol 167 mg/dL (<200); Glucose Fasting 107 mg/dL (60-99); HDL Cholesterol 47 mg/dL (>40); LDL Cholesterol Calculated 101 mg/dL (<100); Triglycerides 95 mg/dL (<150)
[2024-02-05 11:19] LABS: Vitamin D 25-OH Total 83.7 ng/mL (>30)
[2024-02-05 11:34] LABS: Erythrocyte Sedimentation Rate 7 MM/HR (0-20)
[2024-02-09 21:39] LABS: CRP High Sensitivity 3.2 mg/L
== END 2024-02-05 06:49 | disposition home or self-care (01) ==
LOC: HO.HMGCLDS 06:48
PROVIDERS: PCP Internal Medicine; Visit Provider Internal Medicine
DX: M79.641 Pain in right hand (principal); M79.642 Pain in left hand; M25.541 Pain in joints of right hand; M25.542 Pain in joints of left hand; E78.1 Pure hyperglyceridemia; R73.01 Impaired fasting glucose
CPT/HCPCS: 36415; 80061; 82306; 82947; 83036; 85652; 86141; 86431

== ENCOUNTER 2024-02-12 13:14 | Outpatient (AMB) | payer BC, SELFPAY ==
--- NOTE | 2024-02-12 13:11 | MHC.PC.OV ---
Vital Signs 02/12/24 14:00 Weight 166 lb 6 oz Comment Patient weighed herself at home Intake Visit Reasons: Ch sinusitus,chronic rhinitus- lab review andriod Intake Note: Pt is having a TH visit for chronic rhinitis and labs review Allergies No Known Drug Allergies Allergy (Severe, Verified 02/14/24 02:12) none Seasonal Allergies Allergy (Mild, Verified 02/14/24 02:12) Runny Nose Medication List - Last Reconciled 02/12/24 by Emmie Dillon MD esomeprazole magnesium 20 mg PO DAILY etonogestrel (Nexplanon) subdermal sennosides (Natural Senna Laxative) 17.2 mg (2 x 8.6 mg) PO BEDTIME simethicone (Gas Relief (simethicone)) 125 mg PO TID-QID PRN Tobacco use date assessed: 02/12/24 Dental Screening Dental Screen Date: 02/12/24 Did you have a dental visit in the last 12 months?: Yes Did you have a dental problem in the last 6 months where you did not have access to dental care?: No Was dental information given to patient?: Patient has dentist HPI Ch sinusitus,chronic rhinitus- lab review andriod HPI Details It today with a 43-year-old lady complaining of persistent nasal congestion, postnasal drainage, and runny nose. She currently getting immunotherapy/allergy shots with Dr. Mobley for the last 3 years now , which has helped with her rhinorrhea but still getting frequent postnasal drainage and congestion. She has been switched from fexofenadine to Zyrtec which she has taken already in the past. She also has been using [id number] Flonase which she states does not really help. She has been exercising regularly, has been following healthy eating habits, avoid snacking and does not eat a lot of processed foods and junk foods but has not been able to lose anymore weight. Would like to see if she can try taking Mounjaro for help with weight loss. Has been having recurrent stiffness and occasional pain in fingers in both hands. Recent labs done showed negative sed rate, slightly elevated CRP and negative rheumatoid factor, hemoglobin hematocrit are within normal limit, fasting glucose elevated at 107 mg/dL but hemoglobin A1c is at 5.4 %. [facility] Medical History (Updated 02/14/24 @ 02:18 by Emmie Dillon MD) Overweight Vitamin D deficiency Impaired fasting glucose Hypertriglyceridemia Bilateral finger arthralgia Environmental and seasonal allergies GERD (gastroesophageal reflux disease) Family history of thyroid disease Family history of diabetes mellitus in first degree relative Lumbago syndrome Surgical History History of esophagogastroduodenoscopy (EGD) History of dermoid cyst excision History of section Family History Father Hepatitis C Mother Asthma HTN (hypertension) Rosacea Maternal Grandmother Breast cancer Maternal Grandfather History of heart attack Paternal Grandmother No problems noted. Paternal Grandfather No problems noted. Brother No problems noted. Brother No problems noted. Sister No problems noted. Daughter No problems noted. 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 Lopez Amaral, Shea Bull, Abelino Oneal and colleagues, with an educational tyrone from [employer]. Review of Systems Const Reports as per HPI Eyes Denies change in vision ENT Reports no additional complaints Card Reports no additional complaints Resp Reports no additional complaints GI Denies abdominal pain, Denies belching, Denies melena, Denies change in bowel habits and Denies heartburn Reports no additional complaints Musc Reports as per HPI Neuro Reports no additional complaints Psych Reports no additional complaints Endo Reports no additional complaints Aller/Immun Reports as per HPI Physical exam (Primary Care) Tobacco/Smoking Status: Tobacco use Status Tobacco use date assessed 02/12/24 02/12/24 13:11 Patient Tobacco Use Status Former Tobacco user 05/17/24 13:11 e-Cigarette/Vaping Use Never Used 02/12/24 13:11 Thrive Assessment: Date of Thrive Assessment Date Thrive assessed 11/17/23 02/12/24 13:11 Telehealth Telehealth Telehealth Platform: [employer] Location of provider rendering services: practice address Location of patient: address on file Patient Identification confirmed using: Name, : Yes Telehealth method: video Patient verbally consented to treatment: Yes Patient verbally consented to billing insurance company: Yes Patient informed of any privacy concerns related to visit: Yes Minutes spent on Phone/Video with Pt.: 15 Results Reviewed Results Reviewed: Laboratory Tests 05/14/21 02/05/24 09:30 06:53 WBC 5.5 Hgb 14.2 Hct 42.6 Plt Count 208 ESR 7 Fasting Glucose 107 H Estimat Average Glucose 108 Hemoglobin A1c % 5.4 C-React Prot High Sens 3.2 H Rheumatoid Factor < 13.0 Assessment and Plan Assessment & Plan (1) Impaired fasting glucose: Code(s): R73.01 - Impaired fasting glucose Plan: Your fasting blood sugar was elevated above 100 mg/dL hemoglobin A1c is within normal limits.. Impaired glucose metabolism increases your risk for developing diabetes mellitus type 2, as well as heart attack and stroke later on. Continue with healthy eating habits, and regular exercise as they are important, and can prevent the progression to diabetes (2) Environmental and seasonal allergies: Comment: Followed by Dr. Mobley , getting allergy shots Code(s): J30.89 - Other allergic rhinitis Plan: Currently getting allergy shots. Prescription sent for as a lasting nasal spray to try 1 spray per nostril twice a day. Fexofenadine and started on cetirizine 10 mg 1 daily at night and started on montelukast 10 mg per tablet to take once a day in a.m.. Advised to do saline nasal wash once or twice a day to remove allergen (3) Overweight: Code(s): E66.3 - Overweight Plan: Trial of Mounjaro will start at 2.5 mg per injection to be given once a week, directions on proper use of medication given to patient, continue with adherence to healthy eating habits and regular exercise, will see her back for follow-up in the clinic in 4 weeks after starting medication (4) Bilateral finger arthralgia: Code(s): M25.541 - Pain in joints of right hand; M25.542 - Pain in joints of left hand Plan: Likely osteoarthritis, may take Tylenol 500 mg 1 tablet every 8 hours as needed for joint pain. Try massaging absorbine abelino to affected joints as needed. Medications: New Mounjaro (tirzepatide) 2.5 mg (0.5 mL) subcut QWEEK 4 weeks 2 mL 0RF NS E66.3 - Overweight, E78.1 - Pure hyperglyceridemia, R73.01 - Impaired fasting glucose montelukast 10 mg PO DAILY 30 tabs 3RF azelastine administer into each nostril 1 spray intranasal BID 30 mL 1RF Coding Level of Care Code Tele Est Pt Level 4 (99730) Diagnoses Impaired fasting glucose R73.01 Environmental and seasonal allergies J30.89 Overweight E66.3 Bilateral finger arthralgia M25.541; M25.542
== END 2024-02-12 14:31 | disposition home or self-care (01) ==
LOC: HO.HMGC 13:14
PROVIDERS: PCP Internal Medicine; Visit Provider Internal Medicine
DX: R73.01 Impaired fasting glucose (principal); J30.89 Other allergic rhinitis; E66.3 Overweight; M25.541 Pain in joints of right hand; M25.542 Pain in joints of left hand
CPT/HCPCS: 99214

== ENCOUNTER 2024-02-12 14:53 | Outpatient (AMB) | payer BC, SELFPAY ==
[2024-02-12 15:01] VITALS: BP 125/79; PULSE 71; BMI 26.7
--- NOTE | 2024-02-12 15:01 | MHC.OFFVIS ---
Vital Signs 02/12/24 15:01 Height 5 ft 6 in Weight 165 lb 9.074 oz BMI 26.7 BP 125/79 Blood Pressure Location Lt brachial Position Sitting Pulse 71 Intake Visit Reasons: 6 mnth follow up Intake Note: Patient in office today in 6 months follow up of constipation. CC: Patient states she is doing well, she reports occasional bloating and gas but not as bad as before. Denies other GI symptoms or concerns today. [employer] Technician Required: No Accompanied by: Self / Same As Patient Allergies No Known Drug Allergies Allergy (Severe, Verified 02/12/24 15:04) none Seasonal Allergies Allergy (Mild, Verified 02/12/24 15:04) Runny Nose HPI HPI 6 mnth follow up: Details: LAST VISIT: GERD (gastroesophageal reflux disease) Postprandial abdominal bloating Constipation Plan Patient will start taking 2 Senokot every evening. Patient was also encouraged to increase fluid intake and activity to promote better bowel motility. Continue taking as omeprazole every morning half an hour before breakfast. Patient can try to wean herself off, however if she continues to have symptoms she should stay on it for now. Discussed with patient avoiding dietary triggers and late night snacking. Staying upright for minimum 3 hours after meals discussed with patient. Patient will return in the office in 6 months, sooner on as needed basis. Patient is agreeable to this plan and verbalizes understanding of instructions. She was given the opportunity to ask questions and all questions answered. ? Thank you for allowing me to participate in her care Medications Changed Changed From sennosides (Natural Senna Laxative) 8.6 mg PO BEDTIME 90 tabs 3RF constipation K59.00 Changed To sennosides (Natural Senna Laxative) 17.2 mg (2 x 8.6 mg) PO BEDTIME 180 tabs 3RF constipation K59.00 Refilled esomeprazole magnesium 20 mg PO DAILY 90 caps 2RF Discontinued famotidine (Pepcid) Discontinued Reason: Patient no longer taking 20 mg PO BEDTIME 90 tabs 1RF K21.9 polyethylene glycol 3350 (Miralax) Discontinued Reason: Patient no longer taking 17 grams PO DAILY 510 grams 2RF TODAY'S VISIT Patient is here today for follow-up. Patient states that she saw her PCP today and was placed on Mounjaro. Patient was told that she is prediabetic. Her A1c however was 5.4. Patient reports that she has not lost any weight, however patient has not tried any diet programs or any exercise. 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 Patient does admit to occasional bingeing and snacking. Reports that Nexium has been helpful and she takes it daily. Patient states that she is moving her bowels without any issues. Denies melena, hematochezia, unintentional weight loss or ribbon like stools [facility] Medical History Overweight Vitamin D deficiency Impaired fasting glucose Hypertriglyceridemia Bilateral hand pain Bilateral finger arthralgia Environmental and seasonal allergies GERD (gastroesophageal reflux disease) Postprandial abdominal bloating Family history of thyroid disease Family history of diabetes mellitus in first degree relative Lumbago syndrome Surgical History History of esophagogastroduodenoscopy (EGD) History of dermoid cyst excision History of section Family History Father Hepatitis C Mother Asthma HTN (hypertension) Rosacea Maternal Grandmother Breast cancer Maternal Grandfather History of heart attack Paternal Grandmother No problems noted. Paternal Grandfather No problems noted. Brother No problems noted. Brother No problems noted. Sister No problems noted. Daughter No problems noted. 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 Current occupational exposures/hazards: No Cognitive needs: No Hearing needs: No Vision needs: Yes Female Reproductive History Menstrual Age of Menarche: 15 Review of Systems Const Denies weight gain and Denies weight loss ENT Reports no additional complaints, Denies dysphagia and Denies odynophagia Card Reports no additional complaints Resp Reports no additional complaints GI Denies abdominal pain, Denies belching, Denies melena, Reports bloating (Occasional), Denies change in bowel habits, Denies dysphagia, Denies excessive flatus, Denies dyspepsia, Denies heartburn, Denies diarrhea, Denies loose stools, Denies nausea, Denies odynophagia and Denies vomiting Reports no additional complaints Musc Reports no additional complaints Neuro Reports no additional complaints Psych Reports no additional complaints Endo Reports no additional complaints Physical Exam Vital Signs: Last Vital Signs Pulse 71 02/12/24 15:01 BP 125/79 02/12/24 15:01 BMI result Body Mass Index 26.7 Const General: healthy appearing, no acute distress and well developed Nutritional Appearance: well nourished Orientation/consciousness: patient oriented x3 Resp Effort & Inspection: normal respiratory effort, able to speak in complete sentences, no tracheal deviation and symmetric chest movement Auscultation: clear to auscultation bilaterally Cardio Rate: regular rate GI Inspection: Yes normal to inspection and No distended Palpation (GI): Soft to palpation, not firm, nontender and No hepatosplenomegaly present Auscultation: normal bowel sounds General: Yes no CVA tenderness Back/Spine/Pelvis Back: no CVA tenderness Skin General skin exam: elasticity normal, turgor normal and dry skin Neuro General: patient oriented x3 Psych Appearance: grossly normal Mental Status: mental status grossly normal Results Reviewed Results Reviewed: Laboratory Tests 02/05/24 06:53 ESR 7 Fasting Glucose 107 H Hemoglobin A1c % 5.4 Assessment & Plan Assessment & Plan (1) GERD (gastroesophageal reflux disease): Code(s): K21.9 - Gastro-esophageal reflux disease without esophagitis Category: Medical Qualifiers: Esophagitis presence: esophagitis presence not specified Qualified Code(s): K21.9 - Gastro-esophageal reflux disease without esophagitis (2) Postprandial abdominal bloating: Code(s): R14.0 - Abdominal distension (gaseous) Category: Medical (3) Constipation: Code(s): K59.00 - Constipation, unspecified Qualifiers: Constipation type: slow transit constipation Qualified Code(s): K59.01 - Slow transit constipation Plan Patient can continue taking Nexium. Patient's A1c is 5.4% and she should not take Mounjaro even though off-label might help with weight loss. Patient should start eating smaller meals, avoid carbs eat more protein. Regular daily exercise. Her lifestyle is sedentary currently, patient has job where she is sitting all day. GI symptoms like epigastric pain, decreased motility of gastric emptying has been noted with Mounjaro. Increase fluid intake and activity to promote better bowel motility as well. Patient will try to choose snacks that are healthier. I will see her in 6 months, sooner on an as-needed basis. Patient is agreeable to this plan and verbalizes understanding of instructions. She was given the opportunity to ask questions and all questions answered. Thank you for allowing me to participate in her care Medications: Refilled esomeprazole magnesium 20 mg PO DAILY 90 caps 2RF Coding Level of Care Code Est Pt Level 3 (84068) Diagnoses Gastroesophageal reflux disease, unspecified whether esophagitis present K21.9 Esophagitis presence: esophagitis presence not specified Postprandial abdominal bloating R14.0 Slow transit constipation K59.01 Constipation type: slow transit constipation Time Spent (min) 30 Comment 20 minutes spent with patient and additional 10 minutes spent reviewing her records
== END 2024-02-12 15:44 | disposition home or self-care (01) ==
PROVIDERS: PCP Internal Medicine; Visit Provider Nurse Practitioner Family
DX: K21.9 Gastro-esophageal reflux disease without esophagitis (principal); R14.0 Abdominal distension (gaseous); K59.01 Slow transit constipation
CPT/HCPCS: 99213

== ENCOUNTER → 2024-02-12 14:53 | Outpatient (BNVA) | payer BC, SELFPAY | PROVIDERS: PCP Internal Medicine; Visit Provider Nurse Practitioner Family ==

== ENCOUNTER 2024-06-25 09:06 | Outpatient (AMB) | payer BC, SELFPAY ==
[2024-06-25 09:11] VITALS: BP 100/62; PULSE 95; TEMP 36.8; O2SAT 98; BMI 27.6
--- NOTE | 2024-06-25 09:11 | AM.OFFWIN_ITS ---
Intake Vital Signs 06/25/24 09:11 Height 5 ft 6 in Weight 171 lb BMI 27.6 BP 100/62 Blood Pressure Location Lt brachial Position Sitting Pulse 95 Pulse Source Pulse Oximeter Temp 98.2 F Temp Source Oral Pulse Oximetry (%) 98 Oxygen Delivery Method Room Air Intake Visit Reasons: EP LT foot pain Intake Note: Pt is here today c/o Lt foot pain no injury noted x3days Patient Tobacco Use Status: Former Tobacco user Allergies No Known Drug Allergies Allergy (Severe, Verified 06/25/24 09:14) none Seasonal Allergies Allergy (Mild, Verified 06/25/24 09:14) Runny Nose HPI EP LT foot pain HPI Details Patient is a 44-year-old female comes to the walk-in clinic complaining of pain to the ball of her left foot for the last few days. She has had similar pain in the past that only lasted for a day or so, and recently did extended [facility] at the [facility] prior to symptoms starting up again. No acute injury otherwise. No weakness, numbness or tingling. [facility] Medical History Overweight Vitamin D deficiency Impaired fasting glucose Hypertriglyceridemia Bilateral finger arthralgia Environmental and seasonal allergies GERD (gastroesophageal reflux disease) Family history of thyroid disease Family history of diabetes mellitus in first degree relative Lumbago syndrome Surgical History History of esophagogastroduodenoscopy (EGD) History of dermoid cyst excision History of section Family History Father Hepatitis C Mother Asthma HTN (hypertension) Rosacea Maternal Grandmother Breast cancer Maternal Grandfather History of heart attack Paternal Grandmother No problems noted. Paternal Grandfather No problems noted. Brother No problems noted. Brother No problems noted. Sister No problems noted. Daughter No problems noted. 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 Current occupational exposures/hazards: No Cognitive needs: No Hearing needs: No Vision needs: Yes Female Reproductive History Menstrual Age of Menarche: 15 Review of Systems Const All systems reviewed & are unremarkable except as noted in HPI and below Physical Exam Vital Signs: Last Vital Signs Temp 98.2 F 06/25/24 09:11 Pulse 95 06/25/24 09:11 BP 100/62 06/25/24 09:11 Pulse Ox 98 06/25/24 09:11 Oxygen Delivery Method Room Air 06/25/24 09:11 BMI result Body Mass Index 27.6 Extrem Left lower extremity: foot Details: tenderness (plantar aspect just under 2nd toe.), toes with normal ROM and vascular exam Details: dorsalis pedis pulse present, posterior tibial pulse present and normal capillary refill; not cool and no cyanosis; no unusual warmth and no edema Assessment & Plan Assessment & Plan (1) Left foot pain: Code(s): M79.672 - Pain in left foot Plan: Patient has left foot pain that might be due to her hallux valgus deformity visialized on xray. She can ice it, and can trial OTC NSAIDs, and I wrote her for gabapentin for night time use as needed. She should follow up with podiatry if symptoms persist. Otherwise, she can return to the clinic sooner if needed, or see her PCP. Orders: Orders XR foot LT min 3V 06/25/24 M79.672 - Pain in left foot Referrals Orthopedics Referral M79.672 - Pain in left foot Medications: New gabapentin can cause drowsiness. Do not drive or do safety sensitive duties within 8-10 hours of taking. If no relief with 1 capsule, can increase to 2 capsules at night after 2-3 days, maximum of 200 mg a night 100 mg PO BEDTIME PRN 40 caps 0RF nerve pain Coding Level of Care Code Est Pt Level 4 (49480) Procedure Only Diagnoses Left foot pain M79.672
== END 2024-06-25 11:30 | disposition home or self-care (01) ==
PROVIDERS: PCP Internal Medicine; Visit Provider Physician Assistant Medical
DX: M79.672 Pain in left foot (principal)

== ENCOUNTER → 2024-06-25 09:06 | Outpatient (BNVA) | payer BC, SELFPAY | PROVIDERS: PCP Internal Medicine ==

== ENCOUNTER 2024-06-25 09:57 | Outpatient (REF) | payer BC, SELFPAY ==
--- NOTE | ~2024-06-25 | XR_ITS ---
EXAMINATION: XR FOOT, LEFT CLINICAL INFORMATION: Left foot pain COMPARISON: None available. TECHNIQUE: AP, lateral, and oblique views of the left foot. FINDINGS: There is minimal hallux valgus The bones and soft tissues are unremarkable. No fracture. Alignment is anatomic. Joint spaces are maintained. XR/XR foot LT min 3V IMPRESSION: Minimal hallux valgus. No acute finding. Electronically signed by: Galileo Young MD 06/25/2024 03:48 PM EDT
== END 2024-06-25 09:58 | disposition home or self-care (01) ==
LOC: HO.HMGCX 09:57
PROVIDERS: PCP Internal Medicine; Visit Provider Physician Assistant Medical
DX: M79.672 Pain in left foot (principal)
CPT/HCPCS: 73630

== ENCOUNTER 2024-08-02 08:54 | Outpatient (AMB) | payer BC, SELFPAY ==
--- NOTE | 2024-08-02 09:00 | MHC.PC.OV ---
Vital Signs 08/02/24 09:03 Height 5 ft 5.75 in Weight 176 lb 6 oz BMI 28.7 BP 112/76 Blood Pressure Location Lt brachial Position Sitting Pulse 71 Pulse Source Pulse Oximeter Pulse Oximetry (%) 99 Oxygen Delivery Method Room Air Intake Visit Reasons: [facility] Intake Note: New patient visit Patient Support Partner Required: No Allergies No Known Drug Allergies Allergy (Severe, Verified 08/02/24 09:00) none Seasonal Allergies Allergy (Mild, Verified 08/02/24 09:00) Runny Nose Tobacco use date assessed: 08/02/24 Dental Screening Dental Screen Date: 08/02/24 Did you have a dental visit in the last 12 months?: Yes Did you have a dental problem in the last 6 months where you did not have access to dental care?: No Was dental information given to patient?: Patient has dentist HPI HPI Comments History of Present Illness Details 44 year old female with a past medical history of arthralgia, allergic rhinitis, presenting for internal transfer. Was following with Dr Dillon Rhinitis: immunotherapy/allergy shots with Dr. Mobley for the last 3 years now , which has helped with her rhinorrhea but still getting frequent postnasal drainage and congestion. She has been switched from fexofenadine to Zyrtec which she has taken already in the past. She also has been using [id number] Flonase which she states does not really help. Arthraglia: Has recurrent stiffness and occasional pain in in both hands. Base to mid hands. Less joint pain in the fingers. Recent labs done showed negative sed rate, slightly elevated CRP and negative rheumatoid factor. She laso experiences frequent and debilitating low back pain. She sees a chiropracotor. Xrays of the spine are normal. ROS CONSTITUTIONAL: Denies weight loss, fever and chills. HEENT: Denies changes in vision and hearing. RESPIRATORY: Denies SOB and cough. CV: Denies palpitations and CP GI: Denies abdominal pain, nausea, vomiting and diarrhea. : Denies dysuria and urinary frequency. MSK: Denies new myalgia and joint pain. SKIN: Denies rash and pruritus. NEUROLOGICAL: Denies headache PSYCHIATRIC: Denies recent changes in mood. PHYSICAL EXAM: GENERAL: Alert and oriented x 3. NAD EYES: EOMI. Anicteric. HENT: Moist mucous membranes. No scleral icterus. No cervical lymphadenopathy. LUNGS: Clear to auscultation bilaterally. CARDIOVASCULAR: Regular rate and rhythm. No murmur. No JVD. ABDOMEN: Soft, non-tender +bs EXTREMITIES: No edema. Non-tender. SKIN: No rashes or lesions. Warm. NEUROLOGIC: No focal neurological deficits. CN II-XII grossly intact PSYCHIATRIC: Cooperative. Appropriate mood and affect [facility] Medical History Lumbago syndrome Overweight Vitamin D deficiency Impaired fasting glucose Hypertriglyceridemia Bilateral finger arthralgia Environmental and seasonal allergies GERD (gastroesophageal reflux disease) Family history of thyroid disease Family history of diabetes mellitus in first degree relative Surgical History History of esophagogastroduodenoscopy (EGD) History of dermoid cyst excision History of section Family History Father Hepatitis C Mother Asthma HTN (hypertension) Rosacea Maternal Grandmother Breast cancer Maternal Grandfather History of heart attack Paternal Grandmother No problems noted. Paternal Grandfather No problems noted. Brother No problems noted. Brother No problems noted. Sister No problems noted. Daughter No problems noted. 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 1. Little interest or pleasure in doing things: several days 2. Feeling down, depressed, or hopeless: several days 3. Trouble falling or staying asleep, or sleeping too much: several days 4. Feeling tired or having little energy: several days 5. Poor appetite or overeating: several days 6. Feeling bad about yourself - or that you are a failure or have let yourself or your family down: several days 7. Trouble concentrating on things, such as reading the newspaper or watching television: several days 8. Moving or speaking so slowly that other people could have noticed. Or the opposite - being so fidgety or restless that you have been moving around a lot more than usual: not at all 9. Thoughts that you would be better off or of hurting yourself in some way: not at all Total score: 7 Source: Developed by Drs. Lopez Amaral, Shea Bull, Abelino Oneal and colleagues, with an educational tyrone from [employer]. Thrive Questionnaire Date Thrive assessed: 08/01/24 I am a: Patient What is your living situation today?: I have a steady place to live Within the past 12 months, did the food you bought not last and you didn't have the money to get more?: Never true Within the past 12 months, did you worry whether your food would run out before you got money to buy more?: Never true Do you have trouble paying for medicines?: No Do you have trouble getting transportation to medical appointments?: No Do you have trouble paying your heating and electricity bill?: No Do you have trouble taking care of your child, family member or friend?: No Do you have trouble with day-to-day activities such as bathing, preparing meals, shopping, managing finances, etc.?: No Are you currently unemployed and looking for a job?: No Are you interested in more education?: No Please select the resources that you would like help with: None Currently or been in a relationship where the following occur: No concerns reported THRIVE Score: 0 AUDIT C Alcohol Use Questionnaire (AUDIT-C) 1. How often do you have a drink containing alcohol?: 2-4 times a month 2. How many drinks containing alcohol do you have on a typical day when you are drinking?: 1 or 2 3. How often do you have six or more drinks on one occasion?: Never Total Score: 2 IFTIKHAR-7 AMB Questionnaire IFTIKHAR-7 Date IFTIKHAR - 7 assessed: 11/17/23 Feeling nervous, anxious, or on edge: 1 = Several days Not being able to stop or control worryin = Several days Worrying too much about different things: 1 = Several days Trouble relaxin = Several days Being so restless that it is hard to sit still: 1 = Several days Becoming easily annoyed or irritable: 2 = More than half the days Feeling afraid as if something awful might happen: 1 = Several days Total IFTIKHAR-7 score (0-4 normal; 5-9 mild; 10-14 moderate; 15-21 severe): 8 Source: Developed by Drs. Lopez Amaral, Shea Bull, Abelino Oneal and colleagues, with an educational tyrone from [employer]. Physical exam (Primary Care) Vital Signs: Last Vital Signs Pulse 71 08/02/24 09:03 BP 112/76 08/02/24 09:03 Pulse Ox 99 08/02/24 09:03 Oxygen Delivery Method Room Air 08/02/24 09:03 BMI result Body Mass Index 28.7 Tobacco/Smoking Status: Tobacco use Status Tobacco use date assessed 08/02/24 08/02/24 09:08 Patient Tobacco Use Status Former Tobacco user 08/02/24 09:08 e-Cigarette/Vaping Use Currently Using 08/02/24 09:08 PHQ-9: PHQ-9 Score PHQ-9: Total score 7 08/02/24 09:08 Thrive Assessment: Date of Thrive Assessment Date Thrive assessed 08/01/24 08/02/24 09:08 Currently or been in a relationship where the following occur: No concerns reported Coding Level of Care Code Est Pt Level 4 (99181) Diagnoses Impaired fasting glucose R73.01 Bilateral finger arthralgia M25.541; M25.542 Chronic bilateral low back pain without sciatica M54.50; G89.29 Chronicity: chronic Back pain laterality: bilateral Sciatica presence: without sciatica Assessment & Plan Assessment & Plan (1) Impaired fasting glucose: Code(s): R73.01 - Impaired fasting glucose Category: Medical Plan: Monitor labs. A1C has been in normal range. (2) Bilateral finger arthralgia: Code(s): M25.541 - Pain in joints of right hand; M25.542 - Pain in joints of left hand Category: Medical Plan: Wirst hand/pain > finger pain. ?CTS. EMG ordered. (3) Lumbago syndrome: Code(s): M54.5 - Low back pain Category: Medical Qualifiers: Chronicity: chronic Back pain laterality: bilateral Sciatica presence: without sciatica Qualified Code(s): M54.50 - Low back pain, unspecified; G89.29 - Other chronic pain Plan: referral physiatry. new xrays Has completed formal PT in the past. Conisder MRI Orders: Orders MM screening mammo BI 1 Month Z12.31 - Encounter for screening mammogram for malignant neoplasm of breast Complete Blood Count Auto Diff Today E78.1 - Pure hyperglyceridemia, M25.50 - Pain in unspecified joint, Z13.0 - Encounter for screening for diseases of the blood and blood-forming organs and certain disorders involving the immune mechanism, Z83.49 - Family history of other endocrine, nutritional and metabolic diseases Cyclic Citrullinated Peptide Today E78.1 - Pure hyperglyceridemia, M25.50 - Pain in unspecified joint, Z13.0 - Encounter for screening for diseases of the blood and blood-forming organs and certain disorders involving the immune mechanism, Z83.49 - Family history of other endocrine, nutritional and metabolic diseases Lyme IgG/IgM w/reflex to WB Today E78.1 - Pure hyperglyceridemia, M25.50 - Pain in unspecified joint, Z13.0 - Encounter for screening for diseases of the blood and blood-forming organs and certain disorders involving the immune mechanism, Z83.49 - Family history of other endocrine, nutritional and metabolic diseases XR lumbar spine 2-3V Today M54.5 - Low back pain TSH reflex Free T4 Today E78.1 - Pure hyperglyceridemia, M25.50 - Pain in unspecified joint, Z13.0 - Encounter for screening for diseases of the blood and blood-forming organs and certain disorders involving the immune mechanism, Z83.49 - Family history of other endocrine, nutritional and metabolic diseases NE electromyogram (EMG) Today E78.1 - Pure hyperglyceridemia, M25.50 - Pain in unspecified joint, Z13.0 - Encounter for screening for diseases of the blood and blood-forming organs and certain disorders involving the immune mechanism, Z83.49 - Family history of other endocrine, nutritional and metabolic diseases Vitamin B12 and Folate Today M25.50 - Pain in unspecified joint Referrals Physiatry Referral M54.5 - Low back pain Medications: New cyclobenzaprine 10 mg PO BEDTIME PRN 30 tabs 3RF muscle spasm
[2024-08-02 09:03] VITALS: BP 112/76; PULSE 71; O2SAT 99; BMI 28.7
== END 2024-08-02 09:40 | disposition home or self-care (01) ==
LOC: HO.HMCFM 08:55
PROVIDERS: PCP Internal Medicine; Visit Provider Internal Medicine
DX: R73.01 Impaired fasting glucose (principal); M25.541 Pain in joints of right hand; M25.542 Pain in joints of left hand; M54.50 Low back pain, unspecified; G89.29 Other chronic pain

== ENCOUNTER 2024-08-02 10:04 | Outpatient (REF) | payer BC, SELFPAY ==
[2024-08-02 11:13] LABS: MANUAL DIFF FLAG NO
[2024-08-02 11:22] LABS: Basophils Percent Auto 0.7 % (0-2); Eosinophils Absolute Auto 0.1 X10*3/uL (0.0-0.4); Eosinophils Percent Auto 2.4 % (0-4); Hematocrit 44.8 % (37.0-47.0); Hemoglobin 14.8 g/dl (12.0-16.0); Imm Gran Abs Auto 0.03 X10*3/uL (0.00-0.03); Imm Gran Pct Auto 0.6 % (0.0-0.4); Lymphocytes Absolute Auto 2.2 X10*3/uL (1.2-4.9); Mean Corpuscular Hemoglobin 29.1 pg (27.0-33.0); Mean Corpuscular Volume 88.2 fL (80.0-98.0); Mean Platelet Volume 12.5 fL (9.4-12.3); Monocytes Absolute Auto 0.4 X10*3/uL (0.1-1.2); Monocytes Percent Auto 7.4 % (2-11); Neutrophils Absolute Auto 2.6 x10*3/uL (2.0-8.3); Neutrophils Percent Auto 48.9 % (45-73); Platelet Count 241 X10*3/uL (160-400); Red Blood Count 5.08 X10*6/uL (4.20-5.50); Red Cell Distribution Width 12.3 % (11.0-16.0); White Blood Count 5.4 X10*3/uL (4.8-10.8)
[2024-08-02 12:32] LABS: TSH reflex Free T4 1.48 uIU/mL (0.32-4.0)
[2024-08-02 12:44] LABS: Folate 6.1 ng/mL (> or = 4.0); Vitamin B12 289 pg/mL (200-900)
[2024-08-04 06:48] LABS: Lyme Abs Screen <0.90 index
[2024-08-05 22:28] LABS: Cyclic Citrullinated Peptide <16 UNITS
== END 2024-08-02 10:05 | disposition home or self-care (01) ==
LOC: HO.WFDLDS 10:04
PROVIDERS: Visit Provider Internal Medicine
DX: M25.50 Pain in unspecified joint (principal); Z83.49 Family history of other endocrine, nutritional and metabolic diseases; E78.1 Pure hyperglyceridemia; Z13.0 Encounter for screening for diseases of the blood and blood-forming organs and certain disorders involving the immune mechanism
CPT/HCPCS: 36415; 82607; 82746; 84443; 85025; 86200; 86617; 86618

== ENCOUNTER 2024-08-06 13:06 | Outpatient (REF) | payer BC, SELFPAY | END 2024-08-06 13:07 | disposition home or self-care (01) | LOC: HO.HMGCX 13:06 | PROVIDERS: PCP Internal Medicine; Visit Provider Internal Medicine | DX: M54.50 Low back pain, unspecified (principal) | CPT/HCPCS: 72100 ==

== ENCOUNTER 2024-08-16 15:24 | Outpatient (AMB) | payer BC, SELFPAY ==
--- NOTE | 2024-08-16 15:31 | A.OFFVIS_ITS ---
Vital Signs 08/16/24 15:32 Height 5 ft 6 in Weight 177 lb 4.026 oz BMI 28.6 BP 120/74 Blood Pressure Location Rt brachial Position Sitting Pulse 64 Pulse Source Pulse Oximeter Pulse Oximetry (%) 97 Oxygen Delivery Method Room Air Intake Visit Reasons: 6 month follow up Intake Note: PRESCRIPTIONS LAST GENERATED esomeprazole magnesium 20 mg capsule,delayed release?20 mg PO DAILY 90 caps 2RF Mary Kate Delgado Bryan 02/12/24 15:39 (Transmitted) Pt still taking this medication without difficulty Relevant Flags or Indicators ? Requires Wic Site Coordinator? Brannon Hansa presents in office today for a scheduled 6 mos FUV. CC; No recent labs, diagnostics placed. ? Relevant GI Sx as reported per pt? Fecal abnormalities o?? Constipation ? Bloating ? Abdominal distention ? Hx of any recent surgeries? None Wic Site Coordinator Required: No Allergies No Known Drug Allergies Allergy (Severe, Verified 08/16/24 15:32) none Seasonal Allergies Allergy (Mild, Verified 08/16/24 15:32) Runny Nose HPI HPI 6 month follow up: Details: LAST VISIT: GERD (gastroesophageal reflux disease) Postprandial abdominal bloating Constipation Plan Patient can continue taking Nexium. Patient's A1c is 5.4% and she should not take Mounjaro even though off-label might help with weight loss. Patient should start eating smaller meals, avoid carbs eat more protein. Regular daily exercise. Her lifestyle is sedentary currently, patient has job where she is sitting all day. GI symptoms like epigastric pain, decreased motility of gastric emptying has been noted with Mounjaro. Increase fluid intake and activity to promote better bowel motility as well. Patient will try to choose snacks that are healthier. I will see her in 6 months, sooner on an as-needed basis. Patient is agreeable to this plan and verbalizes understanding of instructions. She was given the opportunity to ask questions and all questions answered. ? Thank you for allowing me to participate in her care Medications Refilled esomeprazole magnesium 20 mg PO DAILY 90 caps 2RF TODAY'S VISIT: Patient is here today for follow-up. Patient reports that she has been feeling better her symptoms of acid reflux are suppressed for the most part. Patient denies dyspepsia, dysphagia or odynophagia. Patient continues to have occasional constipation. Take Senokot on as needed basis. Patient denies melena, hematochezia, unintentional weight loss or ribbon like stools. Patient reports that she is doing well with food for the most part she tries to avoid food that is spicy, greasy or fast food. Patient denies any other GI concerning symptoms. [facility] Medical History Lumbago syndrome Overweight Vitamin D deficiency Impaired fasting glucose Hypertriglyceridemia Bilateral finger arthralgia Environmental and seasonal allergies GERD (gastroesophageal reflux disease) Family history of thyroid disease Family history of diabetes mellitus in first degree relative Surgical History History of esophagogastroduodenoscopy (EGD) History of dermoid cyst excision History of section Family History Father Hepatitis C Mother Asthma HTN (hypertension) Rosacea Maternal Grandmother Breast cancer Maternal Grandfather History of heart attack Paternal Grandmother No problems noted. Paternal Grandfather No problems noted. Brother No problems noted. Brother No problems noted. Sister No problems noted. Daughter No problems noted. 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 Current occupational exposures/hazards: No Cognitive needs: No Hearing needs: No Vision needs: Yes Female Reproductive History Menstrual Age of Menarche: 15 Review of Systems Const Denies weight gain and Denies weight loss ENT Reports no additional complaints, Denies dysphagia and Denies odynophagia Card Reports no additional complaints Resp Reports no additional complaints GI Denies abdominal pain, Denies belching, Denies melena, Reports bloating (Occasional), Denies change in bowel habits, Denies dysphagia, Denies excessive flatus, Denies dyspepsia, Denies heartburn, Denies diarrhea, Denies loose stools, Denies nausea, Denies odynophagia and Denies vomiting Reports no additional complaints Musc Reports no additional complaints Neuro Reports no additional complaints Psych Reports no additional complaints Endo Reports no additional complaints Physical Exam Vital Signs: Last Vital Signs Pulse 64 08/16/24 15:32 BP 120/74 08/16/24 15:32 Pulse Ox 97 08/16/24 15:32 Oxygen Delivery Method Room Air 08/16/24 15:32 BMI result Body Mass Index 28.6 Const General: healthy appearing, no acute distress and well developed Nutritional Appearance: well nourished Orientation/consciousness: patient oriented x3 Resp Effort & Inspection: normal respiratory effort, able to speak in complete sent ences, no tracheal deviation and symmetric chest movement Auscultation: clear to auscultation bilaterally Cardio Rate: regular rate GI Inspection: Yes normal to inspection and No distended Palpation (GI): Soft to palpation, not firm, nontender and No hepatosplenomegaly present Auscultation: normal bowel sounds General: Yes no CVA tenderness Back/Spine/Pelvis Back: no CVA tenderness Skin General skin exam: elasticity normal, turgor normal and dry skin Neuro General: patient oriented x3 Psych Appearance: grossly normal Mental Status: mental status grossly normal Assessment & Plan Assessment & Plan (1) GERD (gastroesophageal reflux disease): Code(s): K21.9 - Gastro-esophageal reflux disease without esophagitis Category: Medical Qualifiers: Esophagitis presence: esophagitis presence not specified Qualified Code(s): K21.9 - Gastro-esophageal reflux disease without esophagitis (2) Postprandial abdominal bloating: Code(s): R14.0 - Abdominal distension (gaseous) Category: Medical (3) Constipation: Code(s): K59.00 - Constipation, unspecified Qualifiers: Constipation type: slow transit constipation Qualified Code(s): K59.01 - Slow transit constipation Plan Continue Nexium daily. Avoid dietary triggers and late night snacking. Staying upright for minimum 3 hours after meals discussed with patient. Continue senna. Increase fluid intake and activity to promote better bowel motility. When it comes to abdominal bloating patient was encouraged to try low FODMAP diet. Staying away from food that is very gassy. Eat more vegetables, increase fiber and fluid intake. Patient will follow-up in 1 year. She will call our office if she will experience any GI concerning symptoms. She is agreeable to this plan and verbalizes understanding of instructions. She was given the opportunity to ask questions and all questions answered. Thank you for allowing me to participate in her care Medications: Refilled sennosides (Natural Senna Laxative) 17.2 mg (2 x 8.6 mg) PO BEDTIME 180 tabs 3RF constipation K59.00 - Constipation, unspecified esomeprazole magnesium 20 mg PO DAILY 90 caps 2RF Discontinued simethicone Discontinued Reason: Patient no longer taking 125 mg PO TID-QID PRN 240 caps 2RF abdominal distention Coding Level of Care Code Est Pt Level 3 (34099) Diagnoses Gastroesophageal reflux disease, unspecified whether esophagitis present K21.9 Esophagitis presence: esophagitis presence not specified Postprandial abdominal bloating R14.0 Slow transit constipation K59.01 Constipation type: slow transit constipation Time Spent (min) 25 Comment 15 minutes spent with patient and additional 10 minutes spent reviewing her records
[2024-08-16 15:32] VITALS: BP 120/74; PULSE 64; O2SAT 97; BMI 28.6
== END 2024-08-16 16:15 | disposition home or self-care (01) ==
PROVIDERS: PCP Internal Medicine; Visit Provider Nurse Practitioner Family
DX: K21.9 Gastro-esophageal reflux disease without esophagitis (principal); R14.0 Abdominal distension (gaseous); K59.01 Slow transit constipation
CPT/HCPCS: 99213

== ENCOUNTER → 2024-08-16 15:24 | Outpatient (BNVA) | payer BC, SELFPAY | PROVIDERS: PCP Internal Medicine; Visit Provider Nurse Practitioner Family ==

== ENCOUNTER 2024-09-06 06:11 | Outpatient (REF) | payer BC, SELFPAY ==
--- NOTE | 2024-09-06 | EMG_ITS ---
Bilateral median and ulnar motor and sensory studies were performed. Bilateral median and lateral antecubital brachial sensory studies and radial sensory studies were performed and paraspinal muscles were tested with a needle. IMPRESSION: Mild right and [id number] left median neuropathy across carpal tunnel. MD KANIKA Lozano/GENESIS / [phone]
== END 2024-09-06 06:12 | disposition home or self-care (01) ==
LOC: HO.NEURO 06:11
PROVIDERS: PCP Internal Medicine; Visit Provider Internal Medicine
DX: M79.641 Pain in right hand (principal); M79.642 Pain in left hand; M25.50 Pain in unspecified joint
CPT/HCPCS: 95886; 95913

== ENCOUNTER 2024-09-06 07:33 | Outpatient (REF) | payer BC, SELFPAY | END 2024-09-06 07:34 | disposition home or self-care (01) | LOC: HO.MAMMO 07:33 | PROVIDERS: PCP Internal Medicine; Visit Provider Internal Medicine | DX: Z12.31 Encounter for screening mammogram for malignant neoplasm of breast (principal) | CPT/HCPCS: 77063; 77067 ==

== ENCOUNTER → 2024-09-06 07:45 | Outpatient (BNV) | payer BC, SELFPAY | PROVIDERS: PCP Internal Medicine; Visit Provider Internal Medicine | DX: Z12.31 Encounter for screening mammogram for malignant neoplasm of breast (principal) | CPT/HCPCS: 77063; 77067 ==

== ENCOUNTER 2024-10-01 09:21 | Outpatient (AMB) | payer BC, SELFPAY ==
--- NOTE | 2024-10-01 10:01 | AM.OFFWIN_ITS ---
Intake Vital Signs 10/01/24 10:27 Weight 175 lb BP 140/90 H Blood Pressure Location Lt brachial Position Sitting Pulse 78 Pulse Source Pulse Oximeter Temp 99 F Temp Source Oral Pulse Oximetry (%) 98 Oxygen Delivery Method Room Air Intake Visit Reasons: EP ? UTI Intake Note: Patient here for frequent urination, burning and blood in urine which started last night. Patient Tobacco Use Status: Former Tobacco user Allergies No Known Drug Allergies Allergy (Severe, Verified 10/01/24 10:27) none Seasonal Allergies Allergy (Mild, Verified 10/01/24 10:27) Runny Nose Do you need a note to return to daycare/school/sports/work: No PFSH Medical History Lumbago syndrome Overweight Vitamin D deficiency Impaired fasting glucose Hypertriglyceridemia Bilateral finger arthralgia Environmental and seasonal allergies GERD (gastroesophageal reflux disease) Family history of thyroid disease Family history of diabetes mellitus in first degree relative Surgical History History of esophagogastroduodenoscopy (EGD) History of dermoid cyst excision History of section Family History Father Hepatitis C Mother Asthma HTN (hypertension) Rosacea Maternal Grandmother Breast cancer Maternal Grandfather History of heart attack Paternal Grandmother No problems noted. Paternal Grandfather No problems noted. Brother No problems noted. Brother No problems noted. Sister No problems noted. Daughter No problems noted. 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 Current occupational exposures/hazards: No Cognitive needs: No Hearing needs: No Vision needs: Yes Female Reproductive History Menstrual Age of Menarche: 15 Review of Systems Const All systems reviewed & are unremarkable except as noted in HPI and below Physical Exam Vital Signs: Last Vital Signs Temp 99 F 10/01/24 10:27 Pulse 78 10/01/24 10:27 BP 140/90 H 10/01/24 10:27 Pulse Ox 98 10/01/24 10:27 Oxygen Delivery Method Room Air 10/01/24 10:27 Results AMB Urinalysis, Automated UA Leukoctes 500 Paulie/uL Last Edit by SUSIE Erwin on 10/01/24 10: 02 UA Nitrite Positive Last Edit by Gary Woodruff [facility] on 10/01/24 10:02 UA Urobilinogen 4 mg/dL Last Edit by Gary Woodruff [facility] on 10/01/24 10: 02 UA Protein 30 mg/dL Last Edit by Gary Woodruff [facility] on 10/01/24 10:02 UA pH 5.5 Last Edit by Gary Woodruff [facility] on 10/01/24 10:02 UA Blood 200 Silas/uL Last Edit by Gary Woodruff [facility] on 10/01/24 10:02 UA Specific [place] 1.030 Last Edit by Gary Woodruff [facility] on 10/01/24 10:02 UA Ketone Positive Last Edit by Gary Woodruff [facility] on 10/01/24 10:02 UA Bilirubin 2 mg/dL Last Edit by Gary Woodruff [facility] on 10/01/24 10:02 UA Glucose 0 mg/dL Last Edit by Gary Woodruff [facility] on 10/01/24 10:02 Results Reviewed Results Reviewed: Laboratory Last Values Urine pH (Auto) 5.5 10/01/24 10:01 Specific [place] (Auto) 1.030 10/01/24 10:01 Urine Protein (Auto) 30 mg/dL 10/01/24 10:01 Glucose (UA)(Auto) 0 mg/dL 10/01/24 10:01 Urine Ketones (Auto) Positive 10/01/24 10:01 Urine Blood (Auto) 200 Silas/uL 10/01/24 10:01 Urine Nitrite (Auto) Positive 10/01/24 10:01 Urine Bilirubin (Auto) 2 mg/dL 10/01/24 10:01 Urine Urobilinogen (Auto) 4 mg/dL 10/01/24 10:01 Leukocyte Esterase (Auto) 500 Paulie/uL 10/01/24 10:01 Assessment & Plan Assessment & Plan Plan Patient with urinary tract infection, after apparent viral syndrome that had respiratory and GI symptoms. She reports that her diarrhea has abated, and her respiratory symptoms are resolving at this point. I am writing her for M acrobid, which would cover a lower urinary tract infection. I encouraged adequate water intake, and adequate sleep. She denied needing a work note. If symptoms persist or worsen, she knows to come back to the walk-in, see her PCP or she is go to the emergency department with worrisome symptoms. Orders: Orders AMB Urinalysis Automated Today Z13.9 - Encounter for screening, unspecified Medications: New nitrofurantoin monohyd/m-cryst 100 mg (Macrobid) must administer with a meal/food 100 mg PO Q12H 10 caps 0RF 5 days N39.0 - Urinary tract infection, site not specified Coding Level of Care Code Est Pt Level 4 (62946)
[2024-10-01 10:27] VITALS: BP 140/90; PULSE 78; TEMP 37.2; O2SAT 98
== END 2024-10-01 10:53 | disposition home or self-care (01) ==
PROVIDERS: PCP Internal Medicine; Visit Provider Physician Assistant Medical
DX: Z13.9 Encounter for screening, unspecified (principal)

== ENCOUNTER → 2024-10-01 09:21 | Outpatient (BNVA) | payer BC, SELFPAY | PROVIDERS: PCP Internal Medicine; Visit Provider Physician Assistant Medical | DX: N39.0 Urinary tract infection, site not specified (principal); R31.9 Hematuria, unspecified | CPT/HCPCS: 81003 ==

== ENCOUNTER 2024-10-07 12:47 | Outpatient (AMB) | payer BC, SELFPAY ==
--- NOTE | 2024-10-07 13:02 | A.OFFVIS_ITS ---
Vital Signs 10/07/24 13:03 Height 5 ft 6 in Weight 177 lb BMI 28.6 Intake Visit Reasons: New Patient - B/L hand CTS - EMG Done Intake Note: Hansa 44 yr old female presents today for a new patient visit for bilateral hand CTS. States both hands are as bad. States she has CTS daily, especially in the AM. Symptoms started years ago and has worsen in the last year. She mentioned some of her finger lock but she doesn't recall which ones. Patient would like to discuss surgical intervention. EMG done. Allergies No Known Drug Allergies Allergy (Severe, Verified 10/07/24 13:07) none Seasonal Allergies Allergy (Mild, Verified 10/07/24 13:07) Runny Nose HPI HPI New Patient - B/L hand CTS - EMG Done: Details: Patient is a 44-year-old female who presents for evaluation of bilateral hand carpal tunnel syndrome with EMG done. Patient reports that her numbness and tingling is in the median nerve distribution of bilateral hands, and is intermittent, but daily, and worse at night. Patient reports that there is significant pain associated with this numbness and tingling. No involvement of the small finger that the patient can recall. No other acute complaints or concerns at this time. [facility] Medical History Lumbago syndrome Overweight Vitamin D deficiency Impaired fasting glucose Hypertriglyceridemia Bilateral finger arthralgia Environmental and seasonal allergies GERD (gastroesophageal reflux disease) Family history of thyroid disease Family history of diabetes mellitus in first degree relative Surgical History History of esophagogastroduodenoscopy (EGD) History of dermoid cyst excision History of section Family History Father Hepatitis C Mother Asthma HTN (hypertension) Rosacea Maternal Grandmother Breast cancer Maternal Grandfather History of heart attack Paternal Grandmother No problems noted. Paternal Grandfather No problems noted. Brother No problems noted. Brother No problems noted. Sister No problems noted. Daughter No problems noted. 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 Good APB muscle firing and good finger cross. Vascular: Capillary refill brisk. ROM: Patient can make a fist and extend all their digits. Skin: No lacerations or abrasions noted. General: No ecchymosis. No erythema or evidence of infection. Results Reviewed Results Reviewed: IMPRESSION: Mild right and [id number]-ed-[id number] left median neuropathy across carpal tunnel. Noelle Cruz MD MZK/MODL Assessment & Plan Assessment & Plan (1) Bilateral carpal tunnel syndrome: Code(s): G56.03 - Carpal tunnel syndrome, bilateral upper limbs Category: Medical Plan 1. Carpal tunnel syndrome, right Symptoms intermittent, daily, worse at night I educated the patient about the condition. I discussed both operative and nonoperative treatment options. The patient would like to proceed with surgery. The risks and benefits of operative treatment were discussed with the patient and the patient wishes to proceed with surgery. These risks include, but are not limited to, risk of damage to blood vessels, nerves, tendons, infection, recurrence, incomplete relief of preoperative symptoms, persistent pain, possible need for further surgery, and the risks associated with regional blocks and/or anesthesia. Plan is to take the patient to the operating room at some point in the next few weeks for the following procedures: 1. Right carpal tunnel release under local anesthesia All of the preoperative paperwork including the consent was discussed today. All of the patient's questions were answered in the clinic today. The patient understands that they will be in contact with our surgical endoscopist to discuss scheduling their procedure. Patient denies diabetes, blood thinners, asthma, heart issues, lung issues, kidney issues, or current smoking. 2. Carpal tunnel syndrome, left Symptoms intermittent, daily, worse at night Patient would like to proceed with operative intervention on the right side prior to any intervention on left Patient is informed that if she is recovering well at postoperative visit for right carpal tunnel release, we can get her signed up For the left side at that time patient was amenable this plan Coding Level of Care Code New Pt Level 4 (62891) Diagnoses Bilateral carpal tunnel syndrome G56.03
[2024-10-07 13:03] VITALS: BMI 28.6
== END 2024-10-07 13:19 | disposition home or self-care (01) ==
PROVIDERS: PCP Internal Medicine
DX: G56.03 Carpal tunnel syndrome, bilateral upper limbs (principal)
CPT/HCPCS: 99204

== ENCOUNTER → 2024-10-07 12:47 | Outpatient (BNVA) | payer BC, SELFPAY | PROVIDERS: PCP Internal Medicine ==

== ENCOUNTER 2024-12-15 12:17 | Day surgery (SDC) | payer BC, SELFPAY ==
[2024-12-15 12:32] VITALS: BP 124/74; PULSE 80; RESP 16; TEMP 36.4; O2SAT 99; BMI 28.2
--- NOTE | 2024-12-15 13:09 | MHC.SHP ---
Pre-Procedural Eval Section A - 24 Hr Update-Section A only Date of Service: 12/15/24 The patient is an INPATIENT: No The patient has been examined within 24 hours of the surgical procedure. The History & Physical has been completed within 30 days and I have reviewed it.: Yes Section B - Complete if H&P > 30 days Chief Complaint: Carpal tunnel syndrome, right upper limb Allergies: Allergies Allergy/AdvReac Type Severity Reaction Status Date / Time Seasonal Allergies Allergy Mild Runny Nose Verified 12/15/24 12:39 No Known Drug Allergies Allergy Unknown none Verified 12/15/24 12:39 Plan Diagnosis/Plan: Unchanged I have reviewed the history and physical and performed a pertinent physical examination on my patient. No changes have occurred unless specified. Time Spent With Patient Time: Total time managing care of this patient today ____ minutes.
--- NOTE | 2024-12-15 13:10 | W.PM.OPN ---
Operative Note Operative Note Date of Service: 12/15/24 Narrative: Preop diagnosis: 1. Right Carpal tunnel syndrome Postop diagnosis: same Procedure: 1. Right Carpal tunnel release Surgeon: Kimberly Nunn MD Grain Cleaner And Transfer Operator: Christophe LEDESMA Anesthesia: local block using 1% lidocaine with epinephrine Findings: Thickened transverse carpal ligament. EBL: Less than 5 mL Specimens: None Complications: None Disposition: Brought to recovery room in stable condition Plan: Follow-up for 10-14 days for wound check and suture removal Indications: The patient is 44 years old, with right carpal tunnel syndrome that has been unresponsive to nonoperative management. The risks and benefits of operative treatment including but not limited to risk of damage to blood vessels, nerves, tendons, infection, persistent pain, persistent symptoms, or possible need for additional surgery were discussed with the patient and the patient wishes to proceed with surgery. Procedure: Once consent was obtained a local block was performed using a combination of 1% lidocaine with epinephrine. The patient was then brought back to the operating suite and placed on the operative table in supine position. The right upper extremity was prepped and draped in a standard surgical fashion. Once assured that we had a good block, a 2.0 cm longitudinal incision was made centered over the carpal tunnel. The incision was made through the skin to the subcutaneous tissues using a #15 blade. Dissection was made down to the level of the transverse carpal ligament with care being taken to protect the palmar cutaneous nerve. Once the transverse carpal ligament was clearly visualized, a longitudinal incision was made in the transverse carpal ligament 1st using a #15 blade, then using tenotomy scissors under direct visualization. Care was taken to look for and protect the motor branch of the median nerve when seen in this area. Once satisfied with our carpal tunnel release the wound was copiously irrigated with normal saline and hemostasis was obtained with a brief period of local pressure. The skin edges were reapproximated with some 5.0 nylon suture material and a sterile dressing was applied. The patient appears to have tolerated the procedure well and with no complications. All digits were well vascularized at the conclusion of the case.
[2024-12-15 15:25] VITALS: BP 118/65; PULSE 75; RESP 16; O2SAT 98
== END 2024-12-15 15:27 | disposition home or self-care (01) ==
PROVIDERS: PCP Internal Medicine; Visit Provider Orthopaedic Surgery
PROC: (CPT 64721; principal; 2024-12-15 14:00)
DX: G56.01 Carpal tunnel syndrome, right upper limb (principal); R20.0 Anesthesia of skin; R20.2 Paresthesia of skin; M25.541 Pain in joints of right hand; E55.9 Vitamin D deficiency, unspecified; R73.01 Impaired fasting glucose; K21.9 Gastro-esophageal reflux disease without esophagitis; E66.3 Overweight; Z68.28 Body mass index [BMI] 28.0-28.9, adult; E78.1 Pure hyperglyceridemia; J30.2 Other seasonal allergic rhinitis; Z87.891 Personal history of nicotine dependence; Z98.890 Other specified postprocedural states
CPT/HCPCS: 64721; J0171; J2003

== ENCOUNTER → 2024-12-15 12:17 | Outpatient (BNV) | payer BC, SELFPAY | PROVIDERS: PCP Internal Medicine; Visit Provider Orthopaedic Surgery | DX: G56.01 Carpal tunnel syndrome, right upper limb (principal) | CPT/HCPCS: 64721 ==

== ENCOUNTER 2024-12-28 12:51 | Outpatient (AMB) | payer BC, SELFPAY ==
[2024-12-28 12:56] VITALS: BMI 28.2
--- NOTE | 2024-12-28 12:56 | A.OFFVIS_ITS ---
Vital Signs 12/28/24 12:56 Height 5 ft 6 in Weight 175 lb BMI 28.2 Intake Visit Reasons: PO RT CTR 12/15/24 AR Intake Note: Hansa is a 44 year old right hand dominant female who presents today for a post operative visit s/p right carpal tunnel release DOS: 12/15/[address] Kimberly Nunn. Sutures removed and steri-strips applied. Patient reports that she is doing well, states numbness and tingling has subsided. Allergies Seasonal Allergies Allergy (Mild, Verified 12/28/24 12:58) Runny Nose No Known Drug Allergies Allergy (Unknown, Verified 12/28/24 12:58) none HPI HPI PO RT CTR 12/15/24 AR: Details: Hansa is a 44 year old right hand dominant female who presents today for a post operative visit s/p right carpal tunnel release DOS: 12/15/[address] Kimberly Nunn. Sutures removed and steri-strips applied. Patient reports that she is doing well, states numbness and tingling has subsided. Patient states that she is very pleased with her course of treatment. [facility] Medical History Lumbago syndrome Overweight Vitamin D deficiency Impaired fasting glucose Hypertriglyceridemia Bilateral finger arthralgia Environmental and seasonal allergies GERD (gastroesophageal reflux disease) Family history of thyroid disease Family history of diabetes mellitus in first degree relative Surgical History History of esophagogastroduodenoscopy (EGD) History of dermoid cyst excision History of section Family History Father Hepatitis C Mother Asthma HTN (hypertension) Rosacea Maternal Grandmother Breast cancer Maternal Grandfather History of heart attack Paternal Grandmother No problems noted. Paternal Grandfather No problems noted. Brother No problems noted. Brother No problems noted. Sister No problems noted. Daughter No problems noted. 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 Neuro: Normal sensation of the tips of all digits of the right hand at this time Vascular: Cap refill brisk Pain: No tenderness to palpation about the incision site noted on volar right wrist No pain with range of motion of the right hand ROM: Patient was able to make a closed fist and extend all digits of the right hand fully and without difficulty Skin: Well approximated and well healing incision site noted on the volar right wrist No lacerations or abrasions. General: No ecchymosis, erythema, or evidence of infection. Psych: Appears grossly normal Affect normal Attitude cooperative Assessment & Plan Assessment & Plan (1) Bilateral carpal tunnel syndrome: Code(s): G56.03 - Carpal tunnel syndrome, bilateral upper limbs Category: Medical Plan 1. Carpal tunnel syndrome, right Status post CTR DOS 12/15/24 Patient appears to be recovering well postoperatively Patient is educated about the typical recovery course At this time, patient was informed that she will require no acute follow-up with us, as she appears to be recovering very well Patient was expresses understanding of this and is amenable to this plan 2. Carpal tunnel syndrome, left Symptoms intermittent, not daily, worse at night Patient states she would like to hold off on any operative intervention of the left at this time, as her symptoms are not nearly as bothersome as the symptoms on the right were prior to surgery, and she would like to have the chance to recover fully and be able to get back to work for awhile Patient is educated on the potential risks of prolonging treatment for carpal tunnel syndrome Patient expresses understanding of these risks Patient will follow-up as needed with any acute concerns Coding Level of Care Code Global (91374) Diagnoses Bilateral carpal tunnel syndrome G56.03
== END 2024-12-28 13:22 | disposition home or self-care (01) ==
LOC: HO.HOS 12:52
PROVIDERS: PCP Internal Medicine
DX: G56.03 Carpal tunnel syndrome, bilateral upper limbs (principal)
CPT/HCPCS: 99024

== ENCOUNTER → 2024-12-28 12:51 | Outpatient (BNVA) | payer BC, SELFPAY | PROVIDERS: PCP Internal Medicine ==

== ENCOUNTER 2025-01-27 16:02 | Outpatient (AMB) | payer BC, SELFPAY ==
--- NOTE | 2025-01-27 16:08 | A.OFFVIS_ITS ---
Vital Signs 01/27/25 16:09 Height 5 ft 6 in Weight 172 lb BMI 27.8 BP 144/82 H Blood Pressure Location Rt brachial Position Sitting Pulse 76 Pulse Source Pulse Oximeter Pulse Oximetry (%) 98 Oxygen Delivery Method Room Air Intake Visit Reasons: 1 YR FUV. GERD mgmt. Pt req earlier appt Intake Note: ESTABLISHED PATIENT for 1 YR FUV GERD mgmt. Chief Complaint; C/O constipation persistence over the last 2 mos with diarrhea intermittently as well as GERD persistence over the last 2 weeks. Pt had been well managed up until this point. Pt denies any noticeable hematochezia/melena, does report abd pain generalized which is associated with BMs. Housekeeping Attendant Required: No Accompanied by: Self / Same As Patient Allergies Seasonal Allergies Allergy (Mild, Verified 01/31/25 09:02) Runny Nose No Known Drug Allergies Allergy (Unknown, Verified 01/31/25 09:02) none HPI HPI 1 YR FUV. GERD mgmt. Pt req earlier appt: Details: LAST VISIT: GERD (gastroesophageal reflux disease) Postprandial abdominal bloating Constipation Plan Continue Nexium daily. Avoid dietary triggers and late night snacking. Staying upright for minimum 3 hours after meals discussed with patient. Continue senna. Increase fluid intake and activity to promote better bowel motility. When it comes to abdominal bloating patient was encouraged to try low FODMAP diet. Sta dick away from food that is very gassy. Eat more vegetables, increase fiber and fluid intake. Patient will follow-up in 1 year. She will call our office if she will experience any GI concerning symptoms. She is agreeable to this plan and verbalizes understanding of instructions. She was given the opportunity to ask questions and all questions answered. ? Thank you for allowing me to participate in her care Medications Refilled sennosides (Natural Senna Laxative) 17.2 mg (2 x 8.6 mg) PO BEDTIME 180 tabs 3RF constipation K59.00 esomeprazole magnesium 20 mg PO DAILY 90 caps 2RF Discontinued simethicone Discontinued Reason: Patient no longer taking 125 mg PO TID-QID PRN 240 caps 2RF abdominal distention TODAY'S VISIT Patient is here today for follow-up. Patient reports that she has been doing very well until about couple weeks ago. Patient noticed worsening epigastric pain and reflux. Patient reports abdominal pain and cramping in the left lower quadrant. Patient stays bowel pattern change with diarrhea and then constipation. Abdominal cramping with bowel movements when constipated. Postprandial abdominal bloating worse towards the end of the day. Patient denies any nausea or vomiting. Denies of traveling anywhere no one also in the halls hold with similar symptoms. Denies melena, hematochezia. Denies dyspepsia, dysphagia or odynophagia. Patient denies any change in her diet regimen. COUNT INCLUDES THE [facility] Medical History Lumbago syndrome Overweight Vitamin D deficiency Impaired fasting glucose Hypertriglyceridemia Bilateral finger arthralgia Environmental and seasonal allergies GERD (gastroesophageal reflux disease) Family history of thyroid disease Family history of diabetes mellitus in first degree relative Surgical History History of esophagogastroduodenoscopy (EGD) History of dermoid cyst excision History of section Family History Father Hepatitis C Mother Asthma HTN (hypertension) Rosacea Maternal Grandmother Breast cancer Maternal Grandfather History of heart attack Paternal Grandmother No problems noted. Paternal Grandfather No problems noted. Brother No problems noted. Brother No problems noted. Sister No problems noted. Daughter No problems noted. 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 Current occupational exposures/hazards: No Cognitive needs: No Hearing needs: No Vision needs: Yes Female Reproductive History Menstrual Age of Menarche: 15 Review of Systems Const Denies weight gain and Denies weight loss ENT Reports no additional complaints, Denies dysphagia and Denies odynophagia Card Reports no additional complaints Resp Reports no additional complaints GI Denies abdominal pain, Denies belching, Denies melena, Reports bloating (Occasional), Denies change in bowel habits, Denies dysphagia, Denies excessive flatus, Denies dyspepsia, Denies heartburn, Denies diarrhea, Denies loose stools, Denies nausea, Denies odynophagia and Denies vomiting Reports no additional complaints Musc Reports no additional complaints Neuro Reports no additional complaints Psych Reports no additional complaints Endo Reports no additional complaints Physical Exam Vital Signs: Last Vital Signs Pulse 76 01/27/25 16:09 BP 144/82 H 01/27/25 16:09 Pulse Ox 98 01/27/25 16:09 Oxygen Delivery Method Room Air 01/27/25 16:09 BMI result Body Mass Index 27.8 Const General: healthy appearing, no acute distress and well developed Nutritional Appearance: well nourished Orientation/consciousness: patient oriented x3 Resp Effort & Inspection: normal respiratory effort, able to speak in complete sentences, no tracheal deviation and symmetric chest movement Auscultation: clear to auscultation bilaterally Cardio Rate: regular rate GI Inspection: Yes normal to inspection and No distended Palpation (GI): Soft to palpation, not firm, nontender and No hepatosplenomegaly present Auscultation: normal bowel sounds General: Yes no CVA tenderness Back/Spine/Pelvis Back: no CVA tenderness Skin General skin exam: elasticity normal, turgor normal and dry skin Neuro General: patient oriented x3 Psych Appearance: grossly normal Mental Status: mental status grossly normal Assessment & Plan Assessment & Plan (1) GERD (gastroesophageal reflux disease): Code(s): K21.9 - Gastro-esophageal reflux disease without esophagitis Category: Medical Qualifiers: Esophagitis presence: esophagitis presence not specified Qualified Code(s): K21.9 - Gastro-esophageal reflux disease without esophagitis (2) Postprandial abdominal bloating: Code(s): R14.0 - Abdominal distension (gaseous) Category: Medical (3) Constipation: Code(s): K59.00 - Constipation, unspecified Qualifiers: Constipation type: slow transit constipation Qualified Code(s): K59.01 - Slow transit constipation (4) Diarrhea: Code(s): R19.7 - Diarrhea, unspecified Qualifiers: Diarrhea type: functional diarrhea Qualified Code(s): K59.1 - Functional diarrhea (5) Postprandial epigastric pain: Code(s): R10.13 - Epigastric pain Plan Patient will stop Nexium and start pantoprazole. Avoid dietary triggers in late night snacking. Staying upright for minimal 3 hours after meals discussed with patient. Patient will start taking Benefiber dual action pre and probiotic. Discussed with patient all FODMAP diet. List of food recommended as well as list of food to avoid discussed with patient. Will check CRP and fecal calprotectin to rule out IBD. Patient will be sent for gastric emptying study as she reports she feels full quickly and reports epigastric pain postprandially. Patient will follow-up in 3-4 months, sooner on as needed basis. Patient is agreeable to this plan and verbalizes understanding of instructions. She was given the opportunity to ask questions and all questions answered. Thank you for allowing me to participate in her care Orders: Orders C Reactive Protein 01/31/25 K58.9 - Irritable bowel syndrome, unspecified Calprotectin, Fecal 02/02/25 R15.9 - Full incontinence of feces NM gastric emptying study 01/27/25 R68.81 - Early satiety Medications: New pantoprazole take one tablet half an hour before breakfast 40 mg PO DAILY 30 tabs 2RF K21.9 - Gastro-esophageal reflux disease without esophagitis pantoprazole take one tablet half an hour before breakfast 40 mg PO DAILY 30 tabs 2RF K21.9 - Gastro-esophageal reflux disease without esophagitis Discontinued esomeprazole magnesium Discontinued Reason: Doctor's Order 20 mg PO DAILY 90 caps 2RF Coding Level of Care Code Est Pt Level 4 (54739) Complex EM visit Add On G2211 Diagnoses Gastroesophageal reflux disease, unspecified whether esophagitis present K21.9 Esophagitis presence: esophagitis presence not specified Postprandial abdominal bloating R14.0 Slow transit constipation K59.01 Constipation type: slow transit constipation Functional diarrhea K59.1 Diarrhea type: functional diarrhea Postprandial epigastric pain R10.13 Time Spent (min) 35 Comment 25 minutes spent with patient and additional 10 minutes spent reviewing her records
[2025-01-27 16:09] VITALS: BP 144/82; PULSE 76; O2SAT 98; BMI 27.8
== END 2025-01-27 16:49 | disposition home or self-care (01) ==
LOC: HO.HGI 16:03
PROVIDERS: PCP Internal Medicine; Visit Provider Nurse Practitioner Family
DX: K21.9 Gastro-esophageal reflux disease without esophagitis (principal); R14.0 Abdominal distension (gaseous); K59.01 Slow transit constipation; K59.1 Functional diarrhea; R10.13 Epigastric pain
CPT/HCPCS: 99214

== ENCOUNTER → 2025-01-27 16:02 | Outpatient (BNVA) | payer BC, SELFPAY | PROVIDERS: PCP Internal Medicine; Visit Provider Nurse Practitioner Family ==

== ENCOUNTER 2025-01-31 08:07 | Outpatient (REF) | payer BC, SELFPAY ==
[2025-01-31 13:59] LABS: C Reactive Protein 0.79 mg/dL (< or = 0.50)
== END 2025-01-31 08:08 | disposition home or self-care (01) ==
LOC: HO.HMGCLDS 08:07
PROVIDERS: PCP Internal Medicine; Visit Provider Nurse Practitioner Family
DX: K58.9 Irritable bowel syndrome, unspecified (principal); R35.0 Frequency of micturition; J02.9 Acute pharyngitis, unspecified
CPT/HCPCS: 36415; 81003; 86140; 87880

== ENCOUNTER 2025-01-31 08:07 | Outpatient (AMB) | payer BC, SELFPAY ==
--- NOTE | 2025-01-31 08:36 | AM.OFFWIN_ITS ---
Intake Vital Signs 01/31/25 09:03 Weight 173 lb BP 120/70 Blood Pressure Location Rt brachial Position Sitting Pulse 96 Pulse Source Pulse Oximeter Temp 98.5 F Temp Source Oral Pulse Oximetry (%) 98 Oxygen Delivery Method Room Air Intake Visit Reasons: EP-sore throat, headache, UTI Intake Note: Patient here for sore throat that started thursday, headache and slight cough. Patient Tobacco Use Status: Former Tobacco user Allergies Seasonal Allergies Allergy (Mild, Verified 01/31/25 09:02) Runny Nose No Known Drug Allergies Allergy (Unknown, Verified 01/31/25 09:02) none Do you need a note to return to daycare/school/sports/work: No HPI HPI Comments History of Present Illness Details This is a 44-year-old female with a past medical history of seasonal allergies presenting for evaluation of a scratchy throat and cough that she has had for the past 3 days. Patient is also reporting urinary frequency without dysuria. She denies having any otalgia, difficulty swallowing, shortness for breath, fevers, chills, nausea, vomiting, abdominal pain, vaginal discharge or hematuria. Patient has been taking an rbzq-rbm-sopmciw antihistamine and Flonase for relief of her discomfort. [facility] Medical History Lumbago syndrome Overweight Vitamin D deficiency Impaired fasting glucose Hypertriglyceridemia Bilateral finger arthralgia Environmental and seasonal allergies GERD (gastroesophageal reflux disease) Family history of thyroid disease Family history of diabetes mellitus in first degree relative Surgical History History of esophagogastroduodenoscopy (EGD) History of dermoid cyst excision History of section Family History Father Hepatitis C Mother Asthma HTN (hypertension) Rosacea Maternal Grandmother Breast cancer Maternal Grandfather History of heart attack Paternal Grandmother No problems noted. Paternal Grandfather No problems noted. Brother No problems noted. Brother No problems noted. Sister No problems noted. Daughter No problems noted. 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 Current occupational exposures/hazards: No Cognitive needs: No Hearing needs: No Vision needs: Yes Female Reproductive History Menstrual Age of Menarche: 15 Review of Systems Const All systems reviewed & are unremarkable except as noted in HPI and below Reports no additional complaints, Denies chills, Denies fatigue and Denies fever(s) Eyes Reports no additional complaints ENT Reports no additional complaints, Denies otalgia, Denies facial pain, Denies sinus pressure and Reports sore throat Card Reports as per HPI, Denies dyspnea and Denies dyspnea on exertion Resp Reports cough, Denies hemoptysis, Denies dyspnea and Denies dyspnea on exertion GI Reports no additional complaints Reports no additional complaints Musc Reports no additional complaints Skin/Breast Reports system reviewed and no additional complaints, except as documented Neuro Reports no additional complaints Psych Reports no additional complaints Endo Reports no additional complaints and Denies fatigue Anthony/Lymph Reports no additional complaints Aller/Immun Reports no additional complaints Physical Exam Vital Signs: Last Vital Signs Temp 98.5 F 01/31/25 09:03 Pulse 96 01/31/25 09:03 BP 120/70 01/31/25 09:03 Pulse Ox 98 01/31/25 09:03 Oxygen Delivery Method Room Air 01/31/25 09:03 Const General: cooperative, healthy appearing, comfortable, no acute distress, well developed, alert, awake and Physically active Nutritional Appearance: average body habitus Orientation/consciousness: patient oriented x3 Limitations: no limitations HEENT Head: Yes normal to inspection and Yes normocephalic Ears: hearing grossly normal bilaterally, external ears normal, TM's normal bilaterally and EAC's normal General nose exam: Normal external nose present Face and sinus: Yes normal facial exam and Yes sinuses nontender Mouth: Normal oral and palatal mucosa present and oropharynx normal Throat: Yes posterior oropharynx normal and Yes postnasal drainage Eyes General: appearance normal, both eyes and all related structures Visual Cordero: normal visual cordero by confrontation Alignment and Position: alignment normal Periorbital: periorbital findings normal Eyelids: Yes eyelids normal Conjunctivae: conjunctivae normal Sclerae: sclerae normal Corneas: corneas normal EOM: EOMs intact bilaterally Neck Lymphatic: no lymphadenopathy noted Resp Effort & Inspection: normal respiratory effort, able to speak in complete sentences, no audible wheezes, no cough, no nasal flaring and not tachypneic Auscultation: clear to auscultation bilaterally Cardio Rate: regular rate Rhythm: regular rhythm GI Palpation (GI): Soft to palpation, nontender, no guarding and not rigid General: Yes Bimanual renal exam normal bilaterally, Yes bladder normal to palpation and Yes no CVA tenderness Bimanual exam- vagina & uterus: bladder normal to palpation Back/Spine/Pelvis Back: no CVA tenderness Neuro General: patient oriented x3 Psych Appearance: grossly normal Mental Status: mental status grossly normal Insight: Good insight present (Psych) Judgement: Good judgement present (Psych) Results AMB Urinalysis, Automated UA Leukoctes 0 Paulie/uL Last Edit by Gary Woodruff [facility] on 01/31/25 08:39 UA Nitrite Negative Last Edit by Gary Woodruff [facility] on 01/31/25 08:39 UA Urobilinogen 0.2 mg/dL Last Edit by Gary Woodruff [facility] on 01/31/25 08:39 UA Protein 0 mg/dL Last Edit by Gary Woodruff [facility] on 01/31/25 08:39 UA pH 5.5 Last Edit by Gary Woodruff [facility] on 01/31/25 08:39 UA Blood 25 Silas/uL Last Edit by Gary Woodruff [facility] on 01/31/25 08:39 UA Specific Carlisle 1.025 Last Edit by Gary Woodruff [facility] on 01/31/25 08:39 UA Ketone Negative Last Edit by Gary Woodruff [facility] on 01/31/25 08:39 UA Bilirubin 1 mg/dL Last Edit by Gary Woodruff [facility] on 01/31/25 08:39 UA Glucose 0 mg/dL Last Edit by Gary Woodruff [facility] on 01/31/25 08:39 Results Reviewed Results Reviewed: Laboratory Last Values Urine pH (Auto) 5.5 01/31/25 08:36 Specific Carlisle (Auto) 1.025 01/31/25 08:36 Urine Protein (Auto) 0 mg/dL 01/31/25 08:36 Glucose (UA)(Auto) 0 mg/dL 01/31/25 08:36 Urine Ketones (Auto) Negative 01/31/25 08:36 Urine Blood (Auto) 25 Silas/uL 01/31/25 08:36 Urine Nitrite (Auto) Negative 01/31/25 08:36 Urine Bilirubin (Auto) 1 mg/dL 01/31/25 08:36 Urine Urobilinogen (Auto) 0.2 mg/dL 01/31/25 08:36 Leukocyte Esterase (Auto) 0 Paulie/uL 01/31/25 08:36 Assessment & Plan Assessment & Plan (1) Urinary frequency: Comment: Urinalysis is not consistent with an acute; UTI urine culture will be obtained. Code(s): R35.0 - Frequency of micturition Plan: Pending urine culture. (2) Pharyngitis: Comment: Rapid strep test is negative. Code(s): J02.9 - Acute pharyngitis, unspecified Qualifiers: Pharyngitis/tonsillitis etiology: unspecified etiology Qualified Code(s): J02.9 - Acute pharyngitis, unspecified Plan: Continue OTC medications for allergic rhinitis, ibuprofen 600 mg q.6 to 8 hours as needed. Orders: Orders AMB Urinalysis Automated Today Z13.9 - Encounter for screening, unspecified Urine Culture Today R35.0 - Frequency of micturition Coding Level of Care Code Est Pt Level 3 (93622) Diagnoses Urinary frequency R35.0 Pharyngitis, unspecified etiology J02.9 Pharyngitis/tonsillitis etiology: unspecified etiology Time Spent (min) 20
[2025-01-31 09:03] VITALS: BP 120/70; PULSE 96; TEMP 36.9; O2SAT 98
== END 2025-01-31 09:28 | disposition home or self-care (01) ==
PROVIDERS: PCP Internal Medicine; Visit Provider Physician Assistant
DX: R35.0 Frequency of micturition (principal); J02.9 Acute pharyngitis, unspecified; Z13.9 Encounter for screening, unspecified

== ENCOUNTER 2025-02-01 16:30 | Outpatient (REF) | payer BC, SELFPAY ==
[2025-02-08 19:34] LABS: Calprotectin, Fecal 70 mcg/g
== END 2025-02-01 16:31 | disposition home or self-care (01) ==
LOC: HO.LNP 16:30
PROVIDERS: Visit Provider Nurse Practitioner Family
DX: R15.9 Full incontinence of feces (principal)
CPT/HCPCS: 83993

== ENCOUNTER → 2025-02-16 07:54 | Outpatient (REF) | payer BC, SELFPAY ==
--- NOTE | ~2025-02-16 | NM_ITS ---
EXAMINATION: MD RADIONUCLIDE SOLID FOOD GASTRIC EMPTYING 4-HOUR STUDY CLINICAL INFORMATION: R68.81 - Early satiety COMPARISON: None TECHNIQUE: A standard meal consisting of 4 oz of Egg Beaters brand tagged with 1.0 mCi Tc-99m Sulfur Colloid, 8 oz water and 1 slice of toast with jelly was administered orally to the patient. Images were obtained using a dual head gamma camera in the anterior and posterior projections over of the stomach immediately post ingestion and at hourly intervals up to 4 hours post ingestion. The anterior and posterior counts at each time interval were averaged using the geometric mean and expressed as percentage of the immediate post ingestion counts. FINDINGS: There is visualization of activity in the stomach immediately post ingestion. As the study progresses, there is clearance of activity from the stomach and visualization of progressively increasing small bowel activity. By the end of the study, there is almost no retention noted in the stomach. Retention in the stomach at each time interval was: 1 hour 81% (normal 37%-90%) 2 hours 48% (normal 30%-60%) 3 hours 11% 4 hours 3% (normal 0%-10%) MD/MD gastric emptying study IMPRESSION: Normal 4-hour solid food gastric emptying study. For solid meal, rapid gastric emptying is less than 30% at 60 minutes. Delayed gastric emptying criteria is more than 60% remaining at 120 minutes or more than 10% at 240 minutes. The 4-hour value is the best discriminator of a normal or abnormal result). Gastric emptying study grading per JNMT Consensus Recommendations in 2008 (https://tech.snmjournals.org/content/36/1/44) Grade 1 (mild retention): 11-20% at 4h Grade 2 (moderate retention): 21-35% at 4h Grade 3 (severe retention): 36-50% at 4h Grade 4 (very severe retention): >50% retention at 4h Electronically signed by: Lopez Nuñez MD 02/16/2025 01:13 PM EDT
== END ==
LOC: HO.NUCMED 07:54
PROVIDERS: PCP Internal Medicine; Visit Provider Nurse Practitioner Family
DX: R68.81 Early satiety (principal)
CPT/HCPCS: 78264; A9541

== ENCOUNTER → 2025-02-16 07:55 | Outpatient (BNV) | payer BC, SELFPAY | PROVIDERS: PCP Internal Medicine; Visit Provider Radiology Diagnostic Radiology | DX: R68.81 Early satiety (principal) | CPT/HCPCS: 78264 ==

== ENCOUNTER 2025-02-28 14:38 | Outpatient (AMB) | payer BC, SELFPAY ==
--- NOTE | 2025-02-28 14:45 | MHC.PC.OV ---
Vital Signs 02/28/25 14:48 Height 5 ft 6 in Weight 173 lb 4 oz BMI 28.0 BP 114/82 Blood Pressure Location Lt brachial Position Sitting Respiration 12 Pulse 81 Pulse Source Pulse Oximeter Pulse Oximetry (%) 98 Oxygen Delivery Method Room Air Intake Visit Reasons: F/u care Intake Note: Follow up Jacqu[employer] Plate [employer] Required: No Allergies Seasonal Allergies Allergy (Mild, Verified 02/28/25 14:48) Runny Nose No Known Drug Allergies Allergy (Unknown, Verified 02/28/25 14:48) none Tobacco use date assessed: 02/28/25 Dental Screening Dental Screen Date: 02/28/25 Did you have a dental visit in the last 12 months?: Yes Did you have a dental problem in the last 6 months where you did not have access to dental care?: No Was dental information given to patient?: Patient has dentist HPI HPI Comments History of Present Illness Details 44 year old female with a past medical history of arthralgia, allergic rhinitis, presenting for follow up She is following with GI for issues with constipation. Think most likely IBS but might consider future colonoscopy Rhinitis: immunotherapy/allergy shots with Dr. Mobley for the last 3 years now , which has helped with her rhinorrhea but still getting frequent postnasal drainage and congestion. She has been switched from fexofenadine to Zyrtec which she has taken already in the past. She also has been using cane-vys-ihqvznw Flonase which she states does not really help. Arthraglia: Has seen hand surgery. Prior labs done showed negative sed rate, slightly elevated CRP and negative rheumatoid factor. can experience frequent and debilitating low back pain. She sees a chiropracotor. Xrays of the spine are normal. She is frustrated by weight gain. She has been trying diet exercise. She is not interested in GLP at this time. Mammogram 08/2024 ROS CONSTITUTIONAL: Denies weight loss, fever and chills. HEENT: Denies changes in vision and hearing. RESPIRATORY: Denies SOB and cough. CV: Denies palpitations and CP GI: Denies abdominal pain, nausea, vomiting and diarrhea. : Denies dysuria and urinary frequency. MSK: Denies new myalgia and joint pain. SKIN: Denies rash and pruritus. NEUROLOGICAL: Denies headache PSYCHIATRIC: Denies recent changes in mood. PHYSICAL EXAM: GENERAL: Alert and oriented x 3. NAD EYES: EOMI. Anicteric. HENT: Moist mucous membranes. No scleral icterus. No cervical lymphadenopathy. LUNGS: Clear to auscultation bilaterally. CARDIOVASCULAR: Regular rate and rhythm. No murmur. No JVD. ABDOMEN: Soft, non-tender +bs EXTREMITIES: No edema. Non-tender. SKIN: No rashes or lesions. Warm. NEUROLOGIC: No focal neurological deficits. CN II-XII grossly intact PSYCHIATRIC: Cooperative. Appropriate mood and affect [facility] Medical History Lumbago syndrome Overweight Vitamin D deficiency Impaired fasting glucose Hypertriglyceridemia Bilateral finger arthralgia Environmental and seasonal allergies GERD (gastroesophageal reflux disease) Family history of thyroid disease Family history of diabetes mellitus in first degree relative Surgical History (Reviewed 02/28/25 @ 16:14 by Leonie Mcpherson [facility]) History of esophagogastroduodenoscopy (EGD) History of dermoid cyst excision History of section Family History Father Hepatitis C Mother Asthma HTN (hypertension) Rosacea Maternal Grandmother Breast cancer Maternal Grandfather History of heart attack Paternal Grandmother No problems noted. Paternal Grandfather No problems noted. Brother No problems noted. Brother No problems noted. Sister No problems noted. Daughter No problems noted. 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 1. Little interest or pleasure in doing things: several days 2. Feeling down, depressed, or hopeless: several days 3. Trouble falling or staying asleep, or sleeping too much: several days 4. Feeling tired or having little energy: several days 5. Poor appetite or overeating: several days 6. Feeling bad about yourself - or that you are a failure or have let yourself or your family down: not at all 7. Trouble concentrating on things, such as reading the newspaper or watching television: not at all 8. Moving or speaking so slowly that other people could have noticed. Or the opposite - being so fidgety or restless that you have been moving around a lot more than usual: not at all 9. Thoughts that you would be better off or of hurting yourself in some way: not at all Total score: 5 Depression Screening Interpretation: Positive Depression Screening Follow-up: Existing condition Depression Screening Done: Yes [id number] - PHQ-9 Billing: Yes Source: Developed by Drs. Lopez Amaral, Shea Bull, Abelino Oneal and colleagues, with an educational tyrone from [employer]. Thrive Questionnaire Date Thrive assessed: 02/25/25 I am a: Patient What is your living situation today?: I have a steady place to live Within the past 12 months, did the food you bought not last and you didn't have the money to get more?: Never true Within the past 12 months, did you worry whether your food would run out before you got money to buy more?: Never true Do you have trouble paying for medicines?: No Do you have trouble getting transportation to medical appointments?: No Do you have trouble paying your heating and electricity bill?: No Do you have trouble taking care of your child, family member or friend?: No Do you have trouble with day-to-day activities such as bathing, preparing meals, shopping, managing finances, etc.?: No Are you currently unemployed and looking for a job?: No Are you interested in more education?: No Please select the resources that you would like help with: None Currently or been in a relationship where the following occur: No concerns reported THRIVE Score: 0 AUDIT C Alcohol Use Questionnaire (AUDIT-C) 1. How often do you have a drink containing alcohol?: 2-4 times a month 2. How many drinks containing alcohol do you have on a typical day when you are drinking?: 1 or 2 3. How often do you have six or more drinks on one occasion?: Never Total Score: 2 IFTIKHAR-7 AMB Questionnaire IFTIKHAR-7 Date IFTIKHAR - 7 assessed: 02/28/25 Feeling nervous, anxious, or on edge: 1 = Several days Not being able to stop or control worryin = Several days Worrying too much about different things: 1 = Several days Trouble relaxin = Several days Being so restless that it is hard to sit still: 0 = Not at all Becoming easily annoyed or irritable: 1 = Several days Feeling afraid as if something awful might happen: 1 = Several days Total IFTIKHAR-7 score (0-4 normal; 5-9 mild; 10-14 moderate; 15-21 severe): 6 Source: Developed by Drs. Lopez Amaral, Shea Bull, Abelino Oneal and colleagues, with an educational tyrone from [employer]. IFTIKHAR-7 Assessment Billing IFTIKHAR-7 Assessment Tool: IFTIKHAR-7 Assessment 17881 Physical exam (Primary Care) Vital Signs: Last Vital Signs Pulse 81 02/28/25 14:48 Resp 12 02/28/25 14:48 BP 114/82 02/28/25 14:48 Pulse Ox 98 02/28/25 14:48 Oxygen Delivery Method Room Air 02/28/25 14:48 BMI result Body Mass Index 28.0 Tobacco/Smoking Status: Tobacco use Status Tobacco use date assessed 02/28/25 02/28/25 16:14 Patient Tobacco Use Status Former Tobacco user 02/28/25 14:47 e-Cigarette/Vaping Use Currently Using 02/28/25 14:47 PHQ-9: PHQ-9 Score PHQ-9: Total score 5 02/28/25 16:14 Depression Screening Interpretation: Positive Depression Screening Follow-up: Existing condition Thrive Assessment: Date of Thrive Assessment Date Thrive assessed 02/25/25 02/28/25 14:47 Currently or been in a relationship where the following occur: No concerns reported Coding Level of Care Code Est Pt Level 4 (15260) Diagnoses Weight gain R63.5 Polyarthralgia M25.50 Constipation, unspecified constipation type K59.00 Constipation type: unspecified constipation type Additional Codes IFTIKHAR-7 Assessment Billing - IFTIKHAR-7 Assessment Tool: IFTIKHAR-7 Assessment [id number] ([id number]) PHQ-9 - 46999 - PHQ-9 Billing: Yes ([id number]) Assessment & Plan Assessment & Plan (1) Weight gain: Code(s): R63.5 - Abnormal weight gain Category: Medical (2) Polyarthralgia: Code(s): M25.50 - Pain in unspecified joint Category: Medical (3) Constipation: Code(s): K59.00 - Constipation, unspecified Category: Medical Qualifiers: Constipation type: unspecified constipation type Qualified Code(s): K59.00 - Constipation, unspecified Plan weight gain-trial phentermine Chronic constipation-continue GI follow up. continue PPI Allergic rhinitis is stable Medications: New phentermine must administer 30 minutes before or 1-2 hours after breakfast [id number] [facility] [id number] Member [id number] 37.5 mg PO DAILY 30 caps 5RF
[2025-02-28 14:48] VITALS: BP 114/82; PULSE 81; RESP 12; O2SAT 98; BMI 28.0
== END 2025-02-28 15:00 | disposition home or self-care (01) ==
LOC: HO.HMCFM 14:39
PROVIDERS: PCP Internal Medicine; Visit Provider Internal Medicine
DX: R63.5 Abnormal weight gain (principal); M25.50 Pain in unspecified joint; K59.00 Constipation, unspecified

== ENCOUNTER → 2025-02-28 14:38 | Outpatient (BNVA) | payer BC, SELFPAY | PROVIDERS: PCP Internal Medicine; Visit Provider Internal Medicine | DX: R63.5 Abnormal weight gain (principal); Z68.28 Body mass index [BMI] 28.0-28.9, adult; K59.09 Other constipation; M25.50 Pain in unspecified joint; J31.0 Chronic rhinitis; Z13.30 Encounter for screening examination for mental health and behavioral disorders, unspecified; Z13.31 Encounter for screening for depression | CPT/HCPCS: 96127 ==

== ENCOUNTER 2025-05-24 15:15 | Outpatient (AMB) | payer BC, SELFPAY | END 2025-05-24 15:18 | disposition home or self-care (01) | LOC: HO.HMGAL 15:15 | PROVIDERS: PCP Internal Medicine; Visit Provider Registered Nurse Emergency | DX: J30.89 Other allergic rhinitis (principal) | CPT/HCPCS: 95117; 95165 ==

== ENCOUNTER 2025-06-14 15:38 | Outpatient (AMB) | payer BC, SELFPAY | END 2025-06-14 15:43 | disposition home or self-care (01) | LOC: HO.HMGAL 15:38 | PROVIDERS: PCP Internal Medicine; Visit Provider Registered Nurse Emergency | DX: J30.89 Other allergic rhinitis (principal) | CPT/HCPCS: 95117; 95165 ==

== ENCOUNTER 2025-07-12 15:53 | Outpatient (AMB) | payer BC, SELFPAY | END 2025-07-12 15:54 | disposition home or self-care (01) | LOC: HO.HMGAL 15:53 | PROVIDERS: PCP Internal Medicine; Visit Provider Registered Nurse Emergency | DX: J30.89 Other allergic rhinitis (principal) | CPT/HCPCS: 95117; 95165 ==

== ENCOUNTER 2025-08-15 07:35 | Outpatient (REF) | payer BC, SELFPAY ==
[2025-08-15 11:42] LABS: Resp Syncy Virus RNA Qual PCR NEGATIVE (Negative); SARS COV2 PCR INHOUSE NEGATIVE (Negative)
== END 2025-08-15 07:36 | disposition home or self-care (01) ==
LOC: HO.LNP 07:35
PROVIDERS: Physician Assistant Medical; PCP Internal Medicine
DX: H10.33 Unspecified acute conjunctivitis, bilateral (principal); J06.9 Acute upper respiratory infection, unspecified; Z87.891 Personal history of nicotine dependence
CPT/HCPCS: 87637

== ENCOUNTER 2025-08-15 07:35 | Outpatient (AMB) | payer BC, SELFPAY ==
--- NOTE | 2025-08-15 07:53 | AM.OFFWIN_ITS ---
Intake Vital Signs 08/15/25 07:55 Height 5 ft 6 in Weight 170 lb BMI 27.4 BP 110/80 Blood Pressure Location Rt brachial Position Sitting Respiration 16 Pulse 82 Pulse Source Pulse Oximeter Temp 98.0 F Temp Source Oral Pulse Oximetry (%) 97 Oxygen Delivery Method Room Air Intake Visit Reasons: EP-?pink eyes Patient Tobacco Use Status: Former Tobacco user Allergies Seasonal Allergies Allergy (Mild, Verified 08/15/25 07:53) Runny Nose No Known Drug Allergies Allergy (Unknown, Verified 08/15/25 07:53) none HPI HPI Comments History of Present Illness Details History - The patient is a 45-year-old female pr esenting with conjunctivitis and upper respiratory infection. - Symptoms began approximately one week prior to the visit, with the patient experiencing a sore throat, night sweats, and persistent cough. - She has had body aches and chills. - The patient reported waking up with shante th eyes crusted over this am and both eyes were red and irritated. - She has been itchy and she does not we ar contacts. - The patient has been using DayQuil and NyQuil for symptom management, which provided limited relief. - She denies fever but had sweats and ch ills. - She has no sick contacts or travel. - She denies CP, SOB, abd pain, or n/v/d . Physical Exam General: Cooperative, healthy appearing, comfortable and no acute distress Orientation/consciousness: Patient oriented x3 Limitations: No limitations Head: Normal to inspection Ears: Hearing grossly normal bilaterally, external ears normal and TM's normal bilaterally Nose: Normal external nose present, normal nares present, and no nasal discharge present. Face and sinus: Sinuses nontender to palpation. Mouth: Normal oral and palatal mucosa present and moist mucous membranes noted. Throat: Tonsils normal. Uvula is midline. Posterior oropharynx is pink and no exudates. Eyes: Sclera is erythematous, conjunctiva is pink. Crusting noted bilaterally. Pupils are 2 mm bilaterally. PERRLA, EOMI. Neck: Normal visual inspection, full ROM. No lymphadenopathy noted. Respiratory: Clear to auscultation bilaterally. Normal respiratory effort, able to speak in complete sentences. No respiratory distress, not tachypneic, no tripod positioning and no use of accessory muscles. Cardiovascular: Regular rate and rhythm. Normal S1 and S2 Skin: No rashes or lesions noted Patient was informed and verbally consented to the use of an ambient scribe for clinic note documentation during this visit [facility] Medical History Lumbago syndrome Overweight Vitamin D deficiency Impaired fasting glucose Hypertriglyceridemia Bilateral finger arthralgia Environmental and seasonal allergies GERD (gastroesophageal reflux disease) Family history of thyroid disease Family history of diabetes mellitus in first degree relative Surgical History History of esophagogastroduodenoscopy (EGD) History of dermoid cyst excision History of section Family History Father Hepatitis C Mother Asthma HTN (hypertension) Rosacea Maternal Grandmother Breast cancer Maternal Grandfather History of heart attack Paternal Grandmother No problems noted. Paternal Grandfather No problems noted. Brother No problems noted. Brother No problems noted. Sister No problems noted. Daughter No problems noted. 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 Current occupational exposures/hazards: No Cognitive needs: No Hearing needs: No Vision needs: Yes Female Reproductive History Menstrual Age of Menarche: 15 Review of Systems Const All systems reviewed & are unremarkable except as noted in HPI and below Physical Exam Vital Signs: Last Vital Signs Temp 98.0 F 08/15/25 07:55 Pulse 82 08/15/25 07:55 Resp 16 08/15/25 07:55 BP 110/80 08/15/25 07:55 Pulse Ox 97 08/15/25 07:55 Oxygen Delivery Method Room Air 08/15/25 07:55 BMI result Body Mass Index 27.4 Assessment & Plan Assessment & Plan (1) URI (upper respiratory infection): Code(s): J06.9 - Acute upper respiratory infection, unspecified Qualifiers: URI type: unspecified viral URI Qualified Code(s): J06.9 - Acute upper respiratory infection, unspecified (2) Conjunctivitis: Code(s): H10.9 - Unspecified conjunctivitis Qualifiers: Conjunctivitis type: acute Acute conjunctivitis type: bacterial Laterality: bilateral Qualified Code(s): H10.33 - Unspecified acute conjunctivitis, bilateral Plan 1. Conjunctivitis - Prescribed ophthalmic ointment to be applied four times daily for four days. - Advised to wash pillowcases to prevent reinfection. - Patient can return to work once symptoms resolve and no fever is present. 2. Upper Respiratory Infection - Recommended continuation of DayQuil and NyQuil for symptom relief. - Provided additional cough medicine and decongestant. - Offered COVID, flu, and RSV testing to rule out viral infections. - will call with the results - follow up as needed Orders: Orders SARS-CoV2/FLU/RSV Today R09.89 - Other specified symptoms and signs involving the circulatory and respiratory systems Medications: New benzonatate 100 mg PO bid-tid PRN 21 caps 0RF Cough 7 days erythromycin Apply to left eye 4 times a day while awake 0.5 inches ophthalmic (eye) QID 3.5 grams 0RF cetirizine-pseudoephedrine 5-120 mg ER 1 tab PO BID 14 tabs 0RF 7 days Coding Level of Care Code Est Pt Level 4 (88315) Diagnoses Viral upper respiratory tract infection J06.9 URI type: unspecified viral URI Acute bacterial conjunctivitis of both eyes H10.33 Conjunctivitis type: acute Acute conjunctivitis type: bacterial Laterality: bilateral
[2025-08-15 07:55] VITALS: BP 110/80; PULSE 82; RESP 16; TEMP 36.7; O2SAT 97; BMI 27.4
== END 2025-08-15 07:57 | disposition home or self-care (01) ==
PROVIDERS: PCP Internal Medicine; Visit Provider Physician Assistant Medical
DX: J06.9 Acute upper respiratory infection, unspecified (principal); H10.33 Unspecified acute conjunctivitis, bilateral

== ENCOUNTER 2025-08-23 15:22 | Outpatient (AMB) | payer BC, SELFPAY | END 2025-08-23 15:23 | disposition home or self-care (01) | LOC: HO.HMGAL 15:22 | PROVIDERS: PCP Internal Medicine; Visit Provider Registered Nurse Emergency | DX: J30.89 Other allergic rhinitis (principal) | CPT/HCPCS: 95117; 95165 ==

== ENCOUNTER 2025-08-31 13:44 | Outpatient (AMB) | payer BC, SELFPAY ==
[2025-08-31 13:49] VITALS: BMI 27.4
--- NOTE | 2025-08-31 13:49 | A.PHYSOV ---
Vital Signs 08/31/25 13:49 Height 5 ft 6 in Weight 170 lb BMI 27.4 Intake Visit Reasons: Wants back injection Intake Note: Patient is a 45 year old female in office today for follow up for back pain. 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 She received pain injections in November which provided good relief until approximately June. She underwent bilateral L4-5, L5-S1 facet injection on December 16 with 60% reduction of her pain for over 6 months. The pain has now returned, is of the same character as her previous pain, and she rates it as an 8/10 today. She has been performing physician directed home exercise plan without relief. She reports using Tylenol for pain but has a prescription for meloxicam. The patient tolerated the prior injection procedure well. She is requesting repeat lumbar facet injection. Pain Description - Onset: The patient's pain returned around June after receiving injections in November. - Quality: The pain is the same as what she experienced before her last injections. - Severity: Current pain is rated as 8/10. - Relieving Factors: Previous injections provided relief for approximately seven months. Procedure: Bilateral L4-5, L5-S1 facet injection 12/16/2024 60% reduction of her pain. [facility] Medical History Lumbago syndrome Overweight Vitamin D deficiency Impaired fasting glucose Hypertriglyceridemia Bilateral finger arthralgia Environmental and seasonal allergies GERD (gastroesophageal reflux disease) Family history of thyroid disease Family history of diabetes mellitus in first degree relative Surgical History History of esophagogastroduodenoscopy (EGD) History of dermoid cyst excision History of section Family History Father Hepatitis C Mother Asthma HTN (hypertension) Rosacea Maternal Grandmother Breast cancer Maternal Grandfather History of heart attack Paternal Grandmother No problems noted. Paternal Grandfather No problems noted. Brother No problems noted. Brother No problems noted. Sister No problems noted. Daughter No problems noted. 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 Physical Exam Exam Exam: Physical Exam Lumbar Spine: Examination of her lumbar spine, there is no visible swelling or deformity. She is tender to lower lumbar facets. She is otherwise nontender. Full range of motion of the lumbar spine. She does have an increase in pain with facet loading. Special Tests: Lhermittes sign was negative Heel Toe walk is normal Left straight leg raise: Negative Right straight leg raise: Negative Special tests Nidia test is negative Ganslen's test is negative SI Joint compression test negative Demarcus test negative Piriformis stretch is negative Lower Extremities: Full range of motion bilateral lower extremities. No calf pain or edema Neuro: Sensation: Intact to lower extremities bilaterally Strength L2 (Psoas): 5/5 on the left and 5/5 on the right. L3 (Quads): 5/5 on the left and 5/5 on the right. L4 (Ant tibialis): 5/5 on the left and 5/5 on the right. L5 (EHL) 5/5 on the left and 5/5 on the right. S1 (Gastroc): 5/5 on the left and 5/5 on the right. DTR L4: (Patellar) Left 2 Right 2 S1: (Achilles) Left 2 Right 2 Babinski Downgoing No pathologic clonus. No involuntary movement. Vital Signs: BMI result Body Mass Index 27.4 Assessment & Plan Assessment & Plan (1) Vertebrogenic low back pain: Code(s): M54.51 - Vertebrogenic low back pain Category: Medical (2) Lumbar spondylosis: Code(s): M47.816 - Spondylosis without myelopathy or radiculopathy, lumbar region Category: Medical Plan Pain Management - Analgesia: The patient reports her current pain level is 8/10. - Adverse Effects: The patient tolerated the prior procedure well without horrible pain. Plan Patient was informed and verbally consented to the use of an ambient scribe for clinic note documentation during this visit. 1. Chronic Pain The patient reports recurrence of chronic pain, currently at an 8/10 severity, after her prior injections provided good relief for approximately seven months. She agrees with the plan to repeat the same injection. She will be advised to use meloxicam for pain, as it is expected to be more effective than Tylenol. I will place order for L4-5, L5-S1 facet injection to be repeated bilaterally. Team An order will be placed for the injection, and the office will seek insurance authorization, which is expected to take one to two weeks. The patient will be contacted for scheduling once approval is obtained. A follow-up appointment will be scheduled for three weeks post-injection, which the patient may cancel if she experiences significant improvement. Discussion Notes I discussed with the patient the recurrence of her pain. Given the good results from her last injection, I recommended repeating the same procedure, and she agreed. I advised her to use meloxicam instead of Tylenol for better pain control. I explained that we will place the order for the injection and obtain insurance authorization, which typically takes one to two weeks, after which we will call her to schedule the procedure. The patient verbalized understanding of the plan. I also informed her that we would schedule a follow-up appointment three weeks after the injection, but she can cancel it if she is feeling significantly better to avoid an unnecessary visit. Patient Instructions - For pain, use your prescribed meloxicam medication, as it should work better than Tylenol. - Our office will get approval from your insurance for the pain injection and will call you to schedule it once approved. This process usually takes one to two weeks. - We will make a follow-up appointment for you for three weeks after your injection. - If the injection works well and you feel much better, you can call our office a few days before your follow-up appointment to cancel it. - If you are not happy with the results of the injection, please keep your scheduled follow-up appointment. Coding Level of Care Code Tele Est Pt Level 3 (89563) Diagnoses Vertebrogenic low back pain M54.51 Lumbar spondylosis M47.816
== END 2025-08-31 14:03 | disposition home or self-care (01) ==
LOC: HO.HPHYS 13:44
PROVIDERS: PCP Internal Medicine; Visit Provider Physician Assistant
DX: M54.51 Vertebrogenic low back pain (principal); M47.816 Spondylosis without myelopathy or radiculopathy, lumbar region
CPT/HCPCS: 99213

== ENCOUNTER 2025-09-05 15:38 | Outpatient (AMB) | payer BC, SELFPAY ==
--- NOTE | 2025-09-05 15:42 | MHC.PC.OV ---
Vital Signs 09/05/25 15:43 Height 5 ft 6 in Weight 178 lb 4 oz BMI 28.8 BP 114/76 Blood Pressure Location Rt brachial Position Sitting Respiration 14 Pulse 91 Pulse Source Pulse Oximeter Temp 98.4 F Temp Source Oral Pulse Oximetry (%) 98 Oxygen Delivery Method Room Air Intake Visit Reasons: white bump tongue Intake Note: White bump on tongue for a couple months. Sagger Soak Required: No Allergies Seasonal Allergies Allergy (Mild, Verified 09/05/25 15:44) Runny Nose No Known Drug Allergies Allergy (Unknown, Verified 09/05/25 15:44) none Tobacco use date assessed: 02/28/25 Dental Screening Dental Screen Date: 02/28/25 HPI HPI Comments History of Present Illness Details 45 year old female with a past medical history of arthralgia, allergic rhinitis, tonsil stones presenting for follow up Recently has had throat discomfort, globus, mild dysphagia and trouble breathing, new snoring at night. No fevers. History of tonsil stones none apparent today. Recently also seen white spots on the tongue-likely her circumvalate papillae after reviewing with her. She previously saw Dr Mobley, still goes to the office for allergy shots. She is following with GI for issues with constipation. Think most likely IBS but might consider future colonoscopy Rhinitis: immunotherapy/allergy shots with Dr. Mobley for the last 3 years now , which has helped with her rhinorrhea but still getting frequent postnasal drainage and congestion. She has been switched from fexofenadine to Zyrtec which she has taken already in the past. She also has been using [id number] Flonase which she states does not really help. Arthraglia: Has seen hand surgery. Prior labs done showed negative sed rate, slightly elevated CRP and negative rheumatoid factor. can experience frequent and debilitating low back pain. She sees a chiropracotor. Xrays of the spine are normal. She is frustrated by weight gain. She has been trying diet exercise. She is not interested in GLP at this time. Mammogram 08/2024 ROS see HPI PHYSICAL EXAM: GENERAL: Alert and oriented x 3. NAD EYES: EOMI. Anicteric. HENT: Neck appears full. Some palpable submandibular nodes. thyroid enlarged. Oropharynx, tonsils appear normal. No significant tongue changes. Audible congestion, swallowing. LUNGS: Clear to auscultation bilaterally. CARDIOVASCULAR: Regular rate and rhythm. No murmur. No JVD. ABDOMEN: Soft, non-tender +bs EXTREMITIES: No edema. Non-tender. SKIN: No rashes or lesions. Warm. NEUROLOGIC: No focal neurological deficits. CN II-XII grossly intact PSYCHIATRIC: Cooperative. Appropriate mood and affect [facility] Medical History Lumbago syndrome Overweight Vitamin D deficiency Impaired fasting glucose Hypertriglyceridemia Bilateral finger arthralgia Environmental and seasonal allergies GERD (gastroesophageal reflux disease) Family history of thyroid disease Family history of diabetes mellitus in first degree relative Surgical History History of esophagogastroduodenoscopy (EGD) History of dermoid cyst excision History of section Family History Father Hepatitis C Mother Asthma HTN (hypertension) Rosacea Maternal Grandmother Breast cancer Maternal Grandfather History of heart attack Paternal Grandmother No problems noted. Paternal Grandfather No problems noted. Brother No problems noted. Brother No problems noted. Sister No problems noted. Daughter No problems noted. 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 Current occupational exposures/hazards: No Cognitive needs: No Hearing needs: No Vision needs: Yes Female Reproductive History Menstrual Age of Menarche: 15 Questionnaire Thrive Questionnaire Date Thrive assessed: 02/25/25 I am a: Patient What is your living situation today?: I have a steady place to live Within the past 12 months, did the food you bought not last and you didn't have the money to get more?: Never true Within the past 12 months, did you worry whether your food would run out before you got money to buy more?: Never true Do you have trouble paying for medicines?: No Do you have trouble getting transportation to medical appointments?: No Do you have trouble paying your heating and electricity bill?: No Do you have trouble taking care of your child, family member or friend?: No Do you have trouble with day-to-day activities such as bathing, preparing meals, shopping, managing finances, etc.?: No Are you currently unemployed and looking for a job?: No Are you interested in more education?: No Please select the resources that you would like help with: None Currently or been in a relationship where the following occur: No concerns reported THRIVE Score: 0 IFTIKHAR-7 AMB Questionnaire IFTIKHAR-7 Date IFTIKHAR - 7 assessed: 02/28/25 Source: Developed by Drs. Lopez Amaral, Shea Bull, Abelino Oneal and colleagues, with an educational tyrone from [employer]. Physical exam (Primary Care) Vital Signs: Last Vital Signs Temp 98.4 F 09/05/25 15:43 Pulse 91 09/05/25 15:43 Resp 14 09/05/25 15:43 BP 114/76 09/05/25 15:43 Pulse Ox 98 09/05/25 15:43 Oxygen Delivery Method Room Air 09/05/25 15:43 BMI result Body Mass Index 28.8 Tobacco/Smoking Status: Tobacco use Status Tobacco use date assessed 02/28/25 09/05/25 15:50 Patient Tobacco Use Status Former Tobacco user 09/05/25 15:50 e-Cigarette/Vaping Use Currently Using 09/05/25 15:50 Thrive Assessment: Date of Thrive Assessment Date Thrive assessed 02/25/25 09/05/25 15:50 Currently or been in a relationship where the following occur: No concerns reported Coding Level of Care Code Est Pt Level 4 (14148) Diagnoses Neck swelling R22.1 Pharyngitis, unspecified etiology J02.9 Pharyngitis/tonsillitis etiology: unspecified etiology Tonsil stone J35.8 Dysphagia, unspecified type R13.10 Dysphagia type: unspecified Assessment & Plan Assessment & Plan (1) Neck swelling: Code(s): R22.1 - Localized swelling, mass and lump, neck Category: Medical (2) Pharyngitis: Comment: Rapid strep test is negative. Code(s): J02.9 - Acute pharyngitis, unspecified Category: Medical Qualifiers: Pharyngitis/tonsillitis etiology: unspecified etiology Qualified Code(s): J02.9 - Acute pharyngitis, unspecified (3) Tonsil stone: Code(s): J35.8 - Other chronic diseases of tonsils and adenoids Category: Medical (4) Dysphagia: Code(s): R13.10 - Dysphagia, unspecified Category: Medical Qualifiers: Dysphagia type: unspecified Qualified Code(s): R13.10 - Dysphagia, unspecified Plan 45 year old female presenting for concerns of throat discomfort, neck swelling, shortness of breath & snoring at night Swallowing seems forceful She will be referred to ENT. xr neck, us neck or CT if covered. Trial augmentin Orders: Orders XR soft tissue neck 09/05/25 R13.10 - Dysphagia, unspecified, R22.1 - Localized swelling, mass and lump, neck US soft tiss head and/or neck 09/05/25 J02.9 - Acute pharyngitis, unspecified, R13.10 - Dysphagia, unspecified CT soft tissue neck w IV con 09/05/25 R13.10 - Dysphagia, unspecified, R22.1 - Localized swelling, mass and lump, neck Referrals Ear/Nose/Throat Referral J02.9 - Acute pharyngitis, unspecified, J30.89 - Other allergic rhinitis, J35.8 - Other chronic diseases of tonsils and adenoids Medications: New amoxicillin-pot clavulanate 875-125 mg 1 tab PO BID 20 tabs 0RF
[2025-09-05 15:43] VITALS: BP 114/76; PULSE 91; RESP 14; TEMP 36.9; O2SAT 98; BMI 28.8
--- OUTSIDE RECORDS SUMMARY | 2025-09-05 22:25 | XMS_ITS ---
Author Organization Unknown ENCOUNTERS Encounter Performer Location Date Diagnosis Diagnosis Status Pre Admit [address] [address] [id number] [address] [address] [id number] MELISSA Pre Admit [address] [address] [id number] [address] [address] [id number] MELISSA *Note: Encounters from your own facility or health system may be excluded. Allergies, Adverse Reactions, Alerts Allergen Type Severity Identification Date Seasonal Allergies propensity to adverse reactions 2 [id number] Medications Name Date Quantity Days Supplied GPI Number
== END 2025-09-05 17:00 | disposition home or self-care (01) ==
LOC: HO.HMCFM 15:39
PROVIDERS: PCP Internal Medicine; Visit Provider Internal Medicine
DX: R22.1 Localized swelling, mass and lump, neck (principal); J02.9 Acute pharyngitis, unspecified; J35.8 Other chronic diseases of tonsils and adenoids; R13.10 Dysphagia, unspecified

== ENCOUNTER 2025-09-05 15:38 | Outpatient (REF) | payer BC, SELFPAY ==
--- NOTE | ~2025-09-05 | XR_ITS ---
EXAMINATION: XR SOFT TISSUE NECK CLINICAL INDICATION: R22.1 - Localized swelling, mass and lump, neck COMPARISON: None available. TECHNIQUE: AP and lateral views. FINDINGS: The upper airway is patent. No metallic or radiopaque foreign body. The AP projection demonstrates circular opacity to the left upper neck not seen on the lateral projection probably related to a pony tail/hair. Marginal osteophyte formation and endplate sclerosis and decreased intervertebral disc height at C5-6 and to a lesser extent C6-7. Reverse curvature apex at C5-6. Craniocervical junction is intact. Calcification in the nuchal ligament at C5-6 level. XR/XR soft tissue neck IMPRESSION: Normal upper airway x-ray. Cervical spondylosis C5-6 and C6-7 resulting in reverse curvature. Electronically signed by: Cesar Brewer MD 09/06/2025 06:54 AM [facility]
== END 2025-09-05 15:39 | disposition home or self-care (01) ==
LOC: HO.XRAY 15:38
PROVIDERS: PCP Internal Medicine; Visit Provider Internal Medicine
DX: R22.1 Localized swelling, mass and lump, neck (principal); R13.10 Dysphagia, unspecified
CPT/HCPCS: 70360

== ENCOUNTER → 2025-09-05 16:26 | Outpatient (BNV) | payer BC, SELFPAY | PROVIDERS: PCP Internal Medicine; Visit Provider Radiology Diagnostic Radiology | DX: R22.1 Localized swelling, mass and lump, neck (principal); M47.812 Spondylosis without myelopathy or radiculopathy, cervical region | CPT/HCPCS: 70360 ==

== ENCOUNTER 2025-09-18 07:26 | Outpatient (REF) | payer BC, SELFPAY ==
--- NOTE | ~2025-09-18 | MM_ITS ---
EXAMINATION: MM SCREENING DIGITAL BREAST TOMOSYNTHESIS, BILATERAL CLINICAL INFORMATION: Screening. Asymptomatic. COMPARISON: Mammography: Comparison is made with available priors TECHNIQUE: Digital breast mammography with tomosynthesis is performed in both the craniocaudal and mediolateral oblique views along with computer-aided detection (CAD). FINDINGS: The breasts are heterogeneously dense, which may obscure small masses. There are no significant masses, abnormal calcifications, or other abnormalities. MM/MM tomosynthesis screening BI IMPRESSION: No mammographic evidence of malignancy. ASSESSMENT: BI-RADS Category 1: Negative RECOMMENDATION: Routine annual mammography screening. 1 year F/U This examination should not preclude the clinical evaluation of a suspicious palpable abnormality. This patient's information was entered into a reminder system with a target due date for their next mammogram. Electronically signed by: Bindu Steinberg DO 09/20/2025 10:01 AM [facility]
--- OUTSIDE RECORDS SUMMARY | 2025-09-18 07:32 | XMS_ITS ---
Author Organization Unknown ENCOUNTERS Encounter Performer Location Date Diagnosis Diagnosis Status Pre Admit [address] [address] [id number] [address] [address] [id number] MELISSA Pre Admit [address] [address] [id number] Out[address] [address] [id number] MELISSA *Note: Encounters from your own facility or health system may be excluded. Allergies, Adverse Reactions, Alerts Allergen Type Severity Identification Date Seasonal Allergies propensity to adverse reactions 2 [id number] Medications Name Date Quantity Days Supplied GPI Number
== END 2025-09-18 07:27 | disposition home or self-care (01) ==
LOC: HO.MAMMO 07:26
PROVIDERS: PCP Internal Medicine; Visit Provider Internal Medicine
DX: Z12.31 Encounter for screening mammogram for malignant neoplasm of breast (principal)
CPT/HCPCS: 77063; 77067

== ENCOUNTER → 2025-09-18 07:30 | Outpatient (BNV) | payer BC, SELFPAY | PROVIDERS: PCP Internal Medicine; Visit Provider Internal Medicine | DX: Z12.31 Encounter for screening mammogram for malignant neoplasm of breast (principal) | CPT/HCPCS: 77063; 77067 ==

== ENCOUNTER 2025-09-25 13:42 | Outpatient (REF) | payer BC, SELFPAY ==
--- NOTE | ~2025-09-25 | US_ITS ---
EXAMINATION: US THYROID HISTORY: ENLARGED THYROID, DIFFICULTY SWALLOWING TECHNIQUE: Real-time grayscale ultrasound imaging was performed and images were reviewed. COMPARISON: There are no prior studies available for comparison. FINDINGS: SIZE: The right thyroid lobe measures 4.6 x 2.7 x 1.9 cm. The left thyroid lobe measures 4.8 x 1.6 x 1.7 cm. The isthmus measures 3 mm. FLOW: Flow to the gland is normal. ECHOGENICITY: The echotexture of the gland is homogeneous. NODULES: There are subcentimeter cysts at the lower pole of the right thyroid lobe. No solid nodules are identified. US/US thyroid IMPRESSION: Right-sided thyroid cysts. Otherwise unremarkable thyroid ultrasound. ACR TI-RADS Guidelines TR1 (0 points): Benign. No follow-up or biopsy required TR2 (2 points): Not Suspicious. No biopsy or follow up indicated TR3 (3 points): Mildly Suspicious. FNA if >= 2.5 cm, Follow if >= 1.5 cm TR4 (4-6 points): Moderately Suspicious. FNA if >= 1.5 cm, Follow if >= 1.0 cm TR5 (>=7 points): Highly Suspicious. FNA if >= 1.0 cm, Follow if >= 0.5 cm Electronically signed by: Lopez Nuñez MD 09/25/2025 03:09 PM [facility]
== END 2025-09-25 13:43 | disposition home or self-care (01) ==
LOC: HO.US 13:42
PROVIDERS: PCP Internal Medicine; Visit Provider Internal Medicine
DX: J02.9 Acute pharyngitis, unspecified (principal); R13.10 Dysphagia, unspecified; E04.9 Nontoxic goiter, unspecified
CPT/HCPCS: 76536

== ENCOUNTER → 2025-09-25 13:45 | Outpatient (BNV) | payer BC, SELFPAY | PROVIDERS: PCP Internal Medicine; Visit Provider Radiology Diagnostic Radiology | DX: E04.1 Nontoxic single thyroid nodule (principal) | CPT/HCPCS: 76536 ==